=== PATIENT | female | born 1940 | race Caucasian/White ===

== ENCOUNTER → 2018-10-29 | Outpatient (CLI) | payer MEDICARE ==
--- NOTE | 2018-11-01 10:51 | MM ---
Reason for exam: screening (asymptomatic). Last mammogram was performed 1 year and 2 months ago. History: Patient is postmenopausal. Benign excisional biopsy of the left breast, September 03, 1998. Cyst aspiration of the left breast, August 11, 1998. Benign core biopsy of the left breast, October 16, 1997. Benign excisional biopsy of the left breast, 1996. Benign excisional biopsy of the left breast, 1960. Took estrogen for 10 years. Took progesterone for 10 years. Physical Findings: A clinical breast exam by your physician is recommended on an annual basis and results should be correlated with mammographic findings. MG 3D Screening Mammo W/Cad Bilateral CC and MLO view(s) were taken. Prior study comparison: August 28, 2017, bilateral MG 3d screening mammo w/cad. July 26, 2016, bilateral MG 3d screening mammo w/cad. There are scattered fibroglandular densities. No significant changes when compared with prior studies. ASSESSMENT: Negative, BI-RAD 1 RECOMMENDATION: Routine screening mammogram of both breasts in 1 year.
== END | disposition home or self-care (01) ==
LOC: RADMAMWWP 09:52
PROVIDERS: ATTEND Family Medicine
DX: Z12.31 Encounter for screening mammogram for malignant neoplasm of breast (principal)
CPT/HCPCS: 77063; 77067

== ENCOUNTER → 2019-08-27 | Outpatient (CLI) | payer MEDICARE ==
--- NOTE | 2019-08-28 04:20 | MR ---
EXAMINATION TYPE: MR shoulder RT wo con DATE OF EXAM: 08/27/2019 COMPARISON: Outside radiograph 07/09/2019 HISTORY: 79 year-old female right shoulder pain with limited range of motion TECHNIQUE: Multiplanar, multisequence imaging of the right shoulder is performed without contrast. FINDINGS: The exam is motion degraded. The technologist reports speaking to the patient about holding still, sc ans repeated, best possible images Irregular appearance to the intracapsular portion of the long head biceps tendon. Mild fluid along th e bicipital groove likely communicating with the glenohumeral joint. A split tear may extend into the extracapsular portion, refer to axial image 9. Markedly heterogeneous subscapularis tendon with tearing of the superior fibers. Cystic change at the lesser tuberosity. Moderate degenerative joint space narrowing with marginal spurring and capsular hypertrophy at the ac romioclavicular joint. There is a full-thickness tear of the entire supraspinatus and infraspinatus tendon without retractio n by at least 5 cm nearly to the level of the glenoid. Mild subacromial stenosis subdeltoid bursal effusion communicating with a moderate glenohumeral joint effusion. Subchondral cystic change within the inferior glenoid with overlying moderate irregular cartilage los s. Moderate to severe fatty atrophy of both supraspinatus and infraspinatus muscle bellies and mild to m oderate of the subscapularis muscle belly. Generalized mild muscular atrophy is noted. No Hill-Sachs deformity or os acromiale. No suspicious bone marrow replacement. Some patchy red marro w is present and can be seen in the setting of anemia, obesity, smoking, chronic disease. IMPRESSION: 1. Massive rotator cuff tear involving the entire supraspinatus and infraspinatus tendons. Stump retr action nearly to the level of the glenoid by approximately 5 cm. Moderate to severe fatty atrophy of their muscle bellies. 2. Severe subscapularis tendinosis with some tearing of the superior fibers. Mild to moderate subscap ularis muscle atrophy. 3. Irregular appearance to the intracapsular portion of the long head biceps tendon. Partial tear roma pected. A small split tear may extend into the extracapsular portion. 4. Mild overall glenohumeral joint osteoarthrosis with degenerative changes especially along the infe rior glenoid. 5. Moderate AC joint OA.
== END ==
LOC: RADMRIMAIN 13:33
PROVIDERS: ATTEND Orthopaedic Surgery
DX: M75.101 Unspecified rotator cuff tear or rupture of right shoulder, not specified as traumatic (principal); M75.81 Other shoulder lesions, right shoulder; M62.511 Muscle wasting and atrophy, not elsewhere classified, right shoulder; M19.011 Primary osteoarthritis, right shoulder; R93.7 Abnormal findings on diagnostic imaging of other parts of musculoskeletal system

== ENCOUNTER → 2019-09-30 | Day surgery (SDC) | payer MEDICARE ==
[2019-09-23 15:29] VITALS: BMI 33.4
--- NOTE | 2019-09-29 15:32 | HP ---
HISTORY AND PHYSICAL REASON FOR ADMISSION: Surgery scheduled for 09/30/2019 HISTORY OF PRESENT ILLNESS: Babita Diaz is a 79-year-old patient seen with progressive right shoulder pain. We discussed options for treatment. She elected to proceed with right shoulder arthroscopy. Consent was obtained. Medical clearance was provided by Dr. Taveras. PAST MEDICAL HISTORY: Hypertension, gastroesophageal reflux disease, hyperlipidemia. PAST SURGICAL HISTORY: Left ankle surgery. MEDICATIONS: Ambien, hydrochlorothiazide, Protonix, simvastatin, vitamins. ALLERGIES: SINGULAR. SOCIAL HISTORY: She denies tobacco use. PHYSICAL EVALUATION OF THE RIGHT SHOULDER: Flexion 120, abduction 90, external rotation 10 with significant weakness. Tenderness along the anterior lateral acromion rotator cuff insertion site. Impingement sign is positive at 90 degrees. Drop-arm sign is positive. Distal neurovascular exam is intact. RADIOGRAPHS: Right shoulder radiographs revealed a type 2 anterior acromion and cystic changes of the tuberosity. Right shoulder MRI revealed massive rotator cuff tendon tear. IMPRESSION: 1. Right shoulder impingement with rotator cuff tear. 2. Hypertension. 3. Hyperlipidemia. PLAN: Right shoulder arthroscopy with subacromial decompression, arthroscopic rotator cuff repair and debridement. Surgery scheduled for 09/30/2019. MMODL / IJN: [id number] /
[~2019-09-30] MED LIST: ACETAMINOPHEN TAB 500 MG TAB PO ONE; DEXAMETHASONE SOD PHOS (MDV) 100 MG/10 ML VIAL IVP ONE; DEXAMETHASONE SOD PHOSPHATE 4 MG/ML 1 ML VIAL ONE; HYDROcodone/APAP 5-325MG 1 EACH TAB PO ONE; KETOROLAC 30 MG/ML 1 ML VIAL IVP ONE; LACTATED RINGERS 1,000 ML IV ONE; LACTATED RINGERS 1,000 ML IV SCH; LIDOCAINE 1% 20 ML VIAL (10MG/ML) FOR IV START INTRADERMA PRN; LIDOCAINE 1% INJ 10MG/ML (20 ML MDV) ONE; MELOXICAM 7.5 MG TAB PO ONE; METOPROLOL TARTRATE 5 MG/5 ML VIAL IVP ONE; MIDAZOLAM 2 MG/2 ML VIAL IVP ONE; MIDAZOLAM 2 MG/2 ML VIAL ONE; PROPOFOL 10 MG/ML 20 ML VIAL IV ONE; ROPIVACAINE 246.25 MG, EPINEPHrine 0.5 MG, KETOROLAC 30 MG, cloNIDine HCL/PF 80 MCG, WA... MISCELLANE ONE; ROPIVACAINE 5 MG/ML 30 ML VIAL ONE; SUCCINYLCHOLINE CHLORIDE 100 MG/5 ML SYR IV ONE; TRANEXAMIC ACID 1,000 MG in SODIUM CHLORIDE 0.9% 100 ML IVPB ONE; fentaNYL (PF) 50 MCG/ML 2 ML AMP ONE
[2019-09-30] MEDS: ONDANSETRON 4 MG/2 ML VIAL IVP ONE ×2 (12:20→15:09)
--- NOTE | 2019-09-30 15:00 | P.OP ---
Date of Procedure: 09/30/19 Preoperative Diagnosis: Right shoulder impingement with rotator cuff tear Postoperative Diagnosis: 1. Right shoulder massive retracted rotator cuff tear 2. Right shoulder impingement 3. Right shoulder acromioclavicular joint osteoarthritis 4. Right shoulder partial long head biceps tendon tear Procedure(s) Performed: 1. Right shoulder arthroscopic rotator cuff repair 2. Right shoulder arthroscopic subacromial decompression 3. Right shoulder arthroscopic Roosevelt procedure 4. Right shoulder arthroscopic biceps tenotomy Implants: 5Arthrex swivel lock anchors Anesthesia: GETA, regional (Interscalene block) Surgeon: [employer] Technician #1: Onel Montenegro Estimated Blood Loss (ml): 8 Pathology: none sent Condition: stable Disposition: PACU Indications for Procedure: 79-year-old patient seen with progressive right shoulder pain. After treatment options were discussed, he elected to proceed with arthroscopy. Operative Findings: see description of procedure Description of Procedure: Patient underwent an interscalene block by department of anesthesia for postoperative pain management. The patient was then taken to the operative suite. The patient underwent a general anesthetic by the department of anesthesia. The patient was placed into a lateral position and secured. There was appropriate padding of the bony prominence. Right shoulder was then prepped and draped in normal sterile orthopedic fashion. We placed the extremity in 10 pounds of longitudinal traction. A posterior incision was now made for a posterior working portal site. The trocar and cannula were inserted into the glenohumeral joint. Arthroscopy was initiated. Spinal needle was now inserted anteriorly, to ascertain the anterior working portal site. An incision was now made in that area, a trocar was inserted followed by a probe. There was significant partial tearing of the biceps tendon with only a few fibers remaining. There were grade 2 chondromalacia changes of the glenohumeral joint with no osteochondral tears present. There was some superficial fraying of the superior labrum. There was an obvious massive rotator cuff tear I could visualize from the glenohumeral side. I performed an arthroscopic biceps tenotomy. I debrided that superficial labral tear down to stable labral tissue. Utilizing the posterior working portal site, the trocar and cannula were inserted into the subacromial space. Arthroscopy initiated. I made an incision 2 fingerbreadths lateral to the acromion. I introduced my trocar followed by my ArthroCare ablator. I now began ablating thick subacromial bursal tissue, which exposed the undersurface of the anterior acromion. There was diminished subacromial space. There was a very prominent anterior acromion. A motorized bur was introduced and a subacromial decompression was performed. I also excised some osteophytes off the inferior aspect of the distal clavicle. The AC joint was visualized and noted to be fairly arthritic. The motorized bur was introduced in the anterior portal site and a Roosevelt procedure was performed without difficulty, decompressing the AC joint nicely. I turned my attention to the rotator cuff. There was a 3.54 cm rotator cuff tear with about 3 cm of retraction. I debrided the margins getting down to stable tendon tissue. I was able to barely press puller the footprint. I introduced my motorized bur and abraded the footprint area, getting some petechial bleeding. I used 2 converging suture centrally to close the gap of this large rotator cuff tear. I now got better coverage over the footprint. I now made an accessory portal site off the lateral aspect of the acromion. I punched 2 holes medial for medial row fixation with the assistance of Jarred YOUSIF carefully tapping the punch with a mallet as I held the punch and the camera. I now introduced both anchors into the pre-punched holes and Jarred YOUSIF tapped them with the mallet as I held anchors and the camera. Jarred YOUSIF now screwed the anchors in place a while I held the anchor guide and camera. All 8 limbs of suture were now passed through good bites of rotator cuff tendon. I now punched 2 holes for lateral row fixation again I held the punch and camera while Jarred YOUSIF used a mallet to tap in the punch. We now passed sutures through both anchors and individually I introduced the anchors into the pre-punch holes I held the anchor guide in position with one hand holding the camera with the other hand while Jarred YOUSIF tensioned the sutures and screwed in the anchors one at a time. All residual suture limbs were now clipped. I had a fairly substantial dogear along the posterior aspect of the tear. I passed an additional everted mattress sutures through that and reduced one final anchor which compressed that area nicely. We had good compression of the tendon along the entire footprint. I injected 1 mL Renyte intra-articular. Instruments now removed from the portal sites. All portal sites were approximated with nylon suture. Sterile dressings were applied followed by a shoulder immobilizer. Onel YOUSIF assisted in this complex case. The patient was awakened, transferred to a bed, and taken to recovery in stable condition.
[2019-09-30 15:02] VITALS: TEMP 94
[2019-09-30] MEDS: HYDROmorphone 0.5 MG/0.5 ML SYRINGE IVP PRN ×4 (15:10→15:39)
[2019-09-30 15:56] VITALS: RESP 16
[2019-09-30 17:08] VITALS: BP 159/71; PULSE 68
--- NOTE | 2019-10-01 08:04 | P.ANPRN ---
Procedure Note - Anesthesia - Nerve Block Performed Right Interscalene Single Time Out Performed: Yes Date of Procedure: 09/30/19 Procedure Start Time: 12:39 Procedure Stop Time: 12:42 Location of Patient: PreOp Indication: Acute Post-Operative Pain, Requested by Surgeon Sedation Type: Sedate with meaningful contact maintained Preparation: Sterile Prep Position: Supine Needle Types: Pajunk Needle Gauge: 21 Ultrasound used to visualize needle placement: Yes Ultrasound used to observe medication spread: Yes Blood Aspirated: No Pain Paresthesia on Injection Noted: No Resistance on Injection: Normal Image Stored and Saved: Yes Events: Uneventful and Well Tolerated (ropi .5% 20cc plus dexamethasone 4mg)
== END | disposition home or self-care (01) ==
LOC: OR 11:28
PROVIDERS: ATTEND Orthopaedic Surgery
DX: M75.101 Unspecified rotator cuff tear or rupture of right shoulder, not specified as traumatic (principal); M75.41 Impingement syndrome of right shoulder; M19.011 Primary osteoarthritis, right shoulder; S46.111A Strain of muscle, fascia and tendon of long head of biceps, right arm, initial encounter; M94.211 Chondromalacia, right shoulder; E03.9 Hypothyroidism, unspecified; E78.2 Mixed hyperlipidemia; K21.9 Gastro-esophageal reflux disease without esophagitis; I12.9 Hypertensive chronic kidney disease with stage 1 through stage 4 chronic kidney disease, or unspecified chronic kidney disease; N18.3 Chronic kidney disease, stage 3 (moderate); F43.9 Reaction to severe stress, unspecified; R21 Rash and other nonspecific skin eruption; L53.9 Erythematous condition, unspecified; M47.899 Other spondylosis, site unspecified; Z79.899 Other long term (current) drug therapy; Z79.82 Long term (current) use of aspirin; Z88.7 Allergy status to serum and vaccine; Z88.8 Allergy status to other drugs, medicaments and biological substances; Z91.81 History of falling; Z98.890 Other specified postprocedural states; Z96.662 Presence of left artificial ankle joint; X58.XXXA Exposure to other specified factors, initial encounter
CPT/HCPCS: 29827; 29826; 29824; 64415; 76942; C1713 ×3; Q4212; J2250; J1100 ×2; J0690; J2405; J2001; J3010; J1885; J2795; J0330; J2704; J1170

== ENCOUNTER → 2020-01-07 | Outpatient (CLI) | payer MEDICARE ==
--- NOTE | 2020-01-07 13:49 | MM ---
Reason for exam: screening (asymptomatic). Last mammogram was performed 1 year and 2 months ago. History: Patient is postmenopausal. Benign excisional biopsy of the left breast, September 03, 1998. Cyst aspiration of the left breast, August 11, 1998. Benign core biopsy of the left breast, October 16, 1997. Benign excisional biopsy of the left breast, 1996. Benign excisional biopsy of the left breast, 1960. Took estrogen for 10 years. Took progesterone for 10 years. Physical Findings: A clinical breast exam by your physician is recommended on an annual basis and results should be correlated with mammographic findings. MG 3D Screening Mammo W/Cad Bilateral CC and MLO view(s) were taken. Prior study comparison: October 29, 2018, bilateral MG 3d screening mammo w/cad. August 28, 2017, bilateral MG 3d screening mammo w/cad. There are scattered fibroglandular densities. There is chronic nodularity in the left breast. There is no discrete abnormality. ASSESSMENT: Negative, BI-RAD 1 RECOMMENDATION: Routine screening mammogram of both breasts in 1 year.
== END | disposition home or self-care (01) ==
LOC: RADMAMWWP 13:28
PROVIDERS: ATTEND Family Medicine
DX: Z12.31 Encounter for screening mammogram for malignant neoplasm of breast (principal)
CPT/HCPCS: 77063; 77067

== ENCOUNTER → 2020-05-18 | Outpatient (CLI) | payer MEDICARE ==
--- NOTE | 2020-05-18 16:06 | BD ---
EXAMINATION TYPE: Axial Bone Density DATE OF EXAM: 05/18/2020 COMPARISON: 01/24/2014 CLINICAL HISTORY: Disorder of bone Height: 60.5 IN Weight: 181 LBS FRAX RISK QUESTIONS: Family History (Parent hip fracture): YES MOTHER RISK FACTORS HISTORY OF: Family History of Osteoporosis: YES Active: YES Diet low in dairy products/other sources of calcium: YES Postmenopausal woman: AGE 52 Take estrogen and/or progesterone medications: NOT NOW 5 YEARS Lost more than 2 inches in height since high school: YES 10/31" MEDICATIONS: Additional Medications: CALCIUM, VIT D, BLOOD PRESSURE, ARTHRITIS MEDS EXAM MEASUREMENTS: Bone mineral densitometry was performed using the [employer] System. Bone mineral density as measured about the Lumbar spine is: ----- L1-L4(G/cm2): 1.270 T Score Values are as follows: ----- L2: 0.6 ----- L3: 2.1 ----- L4: 0.9 ----- L1-L4: 0.7 Bone mineral density has: Increased 0.1% since study of: 01/24/2014 Bone mineral density about the R hip (g/cm2): 0.898 Bone mineral density about the L hip (g/cm2): 0.856 T Score values are as follows: -----R Neck: -1.0 -----L Neck: -1.3 -----R Total: 0.2 -----L Total: -0.5 Bone mineral density has: Increased 0.3% since study of: 01/24/2014 IMPRESSION: Osteopenia (T Score between -2.5 and -1). There is slightly increased risk of fracture and the patient may be considered for treatment. Re-Screen 2-5 years. NOTE: T-SCORE=SD OF THE YOUNG ADULT MEAN.
== END | disposition home or self-care (01) ==
LOC: RADBDWWP 12:40
PROVIDERS: ATTEND Family Medicine
DX: M85.89 Other specified disorders of bone density and structure, multiple sites (principal)
CPT/HCPCS: 77080

== ENCOUNTER → 2020-09-30 | Outpatient (CLI) | payer MEDICARE ==
--- NOTE | 2020-09-30 12:57 | XR ---
EXAMINATION TYPE: XR lumbosacral spine min 4V DATE OF EXAM: 09/30/2020 Comparison: None Clinical History: 80-year-old female [id number], [id number], [id number] LBP, ADELINE KNEE PAIN Findings: Moderate to severe degenerative disc disease particularly at L2-L3 and L5-S1 with disc space narrowin g, endplate spondylosis, and vacuum. Hypertrophic facet arthropathy is present throughout the lumbar spine. Trace grade 1 retrolisthesis at L1-L2. Remaining alignment is maintained and vertebral body he ights are preserved. 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 Degenerated levoconvex cur vature of the lumbar spine. Impression: 1. Degenerated levoconvex scoliosis of the lumbar spine. 2. Moderate to severe degenerative disc disease L2-L3 and L5-S1. 3. Advanced hypertrophic facet arthropathy throughout with a trace grade 1 retrolisthesis at L1-L2. 4. Baastrup's disease.
--- NOTE | 2020-09-30 13:00 | XR ---
EXAMINATION TYPE: XR knee complete bilateral DATE OF EXAM: 09/30/2020 COMPARISON: NONE HISTORY: 80-year-old female bilateral knee pain. TECHNIQUE: 3 views each side FINDINGS: Extensor mechanisms appear intact bilaterally. Minimal degenerative spurring in the bilateral patell ofemoral compartments. Trace knee joint effusion on the left. Some meniscal chondrocalcinosis noted in the left medial david rtment. Some soft tissue calcification noted along the region proximal MCL on the left. Medial and lateral and meniscal chondrocalcinosis on the right. Moderate degenerative spurring and fausto int space narrowing at the medial compartment with extruded appearance to the body of the medial meni scus. No acute fracture, subluxation, dislocation. IMPRESSION: 1. Moderate medial compartmental osteoarthrosis on the right. 2. Meniscal chondrocalcinosis bilaterally with extruded appearance to the right medial meniscus sugge sting underlying meniscal tear. 3. Trace knee joint effusion on the left.
== END | disposition home or self-care (01) ==
LOC: RADXRYALE 11:17
PROVIDERS: ATTEND Physician Assistant Medical
DX: M41.86 Other forms of scoliosis, lumbar region (principal); M51.36 Other intervertebral disc degeneration, lumbar region; M51.37 Other intervertebral disc degeneration, lumbosacral region; M47.816 Spondylosis without myelopathy or radiculopathy, lumbar region; M48.27 Kissing spine, lumbosacral region; M17.11 Unilateral primary osteoarthritis, right knee; M11.262 Other chondrocalcinosis, left knee; M11.261 Other chondrocalcinosis, right knee
CPT/HCPCS: 72110

== ENCOUNTER → 2021-06-02 | Outpatient (CLI) | payer MEDICARE ==
--- NOTE | 2021-06-02 11:22 | MR ---
EXAMINATION TYPE: MR lumbar spine wo con DATE OF EXAM: 06/02/2021 COMPARISON: NONE HISTORY: Middle and right sided back pain into right buttock x 2 years TECHNIQUE: T1 and T2 axial and sagittal images of the lumbar spine are submitted. FINDINGS: There is no abnormal signal seen within the visualized spinal cord or paraspinal soft tissu es. There is a scoliotic curvature of the spine with severe degenerative disc disease levels L2-3, L3 -4 and L4-5. Moderate to severe changes at L5-S1. Spinal muscular atrophy noted. At T12-L1 there is r ight paracentral disc bulging but no canal stenosis or foraminal encroachment and facet arthropathy. Multiple vertebral body hemangiomas noted At L1-2 there is facet arthropathy. Greater on the right with lateral impression upon the thecal sac. Neural foramina are patent. No canal stenosis or disc herniation. At L2-3 there is severe degenerative disc disease with advanced facet arthropathy and ligamentum flav um hypertrophy. There is a area of low signal adjacent to the right SI joint which may represent face t arthropathy greater on the right resulting in posterolateral impressions upon the thecal sac. Neura l foramina are patent. There is broad-based disc bulging result in mild central stenosis. At L3-4 there is severe degenerative disc disease with facet arthropathy and diffuse disc bulging res ulting in mild to moderate canal stenosis and bilateral foraminal encroachment. At L4-5 there is advanced facet arthropathy with ligamentum flavum hypertrophy. Mild bilateral forami nal encroachment. Mild central broad-based disc bulging with no canal stenosis. At L5-S1 there is dense facet arthropathy and degenerative disc disease. No foraminal encroachment or canal stenosis. No disc herniation. IMPRESSION: 1. Severe multilevel degenerative disc disease and facet arthropathy. Mild to moderate canal stenosis and bilateral foraminal encroachment and L3-L4. Mild canal stenosis L2-L3. 2. Multilevel disc bulging and foraminal encroachment as discussed above.
== END | disposition home or self-care (01) ==
LOC: RADMRIMAIN 10:36
PROVIDERS: ATTEND Family Medicine
DX: M48.061 Spinal stenosis, lumbar region without neurogenic claudication (principal); M51.17 Intervertebral disc disorders with radiculopathy, lumbosacral region; M47.27 Other spondylosis with radiculopathy, lumbosacral region; M99.73 Connective tissue and disc stenosis of intervertebral foramina of lumbar region
CPT/HCPCS: 72148

== ENCOUNTER → 2021-08-19 | Outpatient (CLI) | payer MEDICARE ==
[2021-08-19 13:29] VITALS: BP 139/72; PULSE 72; RESP 18; TEMP 97.8
--- NOTE | 2021-08-19 13:57 | P.PAINCN ---
History of Present Illness - Reason for Consult Consult date: 08/19/21 - History of Present Illness This is a 51 years old female with a chronic history of severe low back pain started 2 years ago, denies any initiating event and she reported that the intensity of the pain increased over time, it's constant severe localized in the low back area with radiation to the right buttock and towards the right hip, she denies any numbness or tingling sensation in the lower extremity and she denies any motor or sensory deficit, she reported that the intensity of the pain interfering with the quality of life and preventing her from doing activities of daily livings, intensity of the pain 6/10 and increases with any activity to 8- 10 over 10, the patient already done physical therapy without any significant benefit, and she is using voluntary by mouth without any benefit, he denies any motor or sensory deficit she denies any fever or night sweats Past Medical History Past Medical History: GERD/Reflux, Hyperlipidemia, Hypertension, Osteoarthritis (OA) Additional Past Medical History / Comment(s): lower back pain History of Any Multi-Drug Resistant Organisms: None Reported Past Surgical History: Joint Replacement, Orthopedic Surgery, Tubal Ligation Additional Past Surgical History / Comment(s): pinning left ankle, left ankle replacement, polyp removed from vocal cords, Past Anesthesia/Blood Transfusion Reactions: No Reported Reaction Smoking Status: Never smoker - Past Family History Father Family Medical History: Cancer Mother Additional Family Medical History / Comment(s): aneurysm Medications and Allergies Home Medications Medication Instructions Recorded Confirmed Type Ascorbic Acid [Vitamin C] 500 mg PO DAILY 09/23/19 08/19/21 History Aspirin [Adult Low Dose Aspirin EC] 81 mg PO DAILY 09/23/19 08/19/21 History Calcium Carbonate [Calcium] 600 mg PO BID 09/23/19 08/19/21 History Cetirizine HCl 10 mg PO DAILY 09/23/19 08/19/21 History Cholecalciferol (Vitamin D3) 1,000 unit PO DAILY 09/23/19 08/19/21 History [Vitamin D3] Cyanocobalamin [Vitamin B-12] 500 mcg PO DAILY 09/23/19 08/19/21 History Diclofenac Sodium [Voltaren] 75 mg PO DAILY 09/23/19 08/19/21 History Glucosamine/Chondr Ibrahim A Sod [Osteo 1 each PO BID 09/23/19 08/19/21 History Bi-Flex Caplet] Multivitamins, Thera [Multivitamin 1 tab PO DAILY 09/23/19 08/19/21 History (formulary)] Pantoprazole [Protonix] 40 mg PO DAILY 09/23/19 08/19/21 History Simvastatin [Zocor] 40 mg PO HS 09/23/19 08/19/21 History hydroCHLOROthiazide [Hydrodiuril] 25 mg PO DAILY 09/23/19 08/19/21 History L.acidoph,Paracasei, B.lactis 1 each PO DAILY 08/06/21 08/19/21 History [Probiotic] Losartan Potassium 100 mg PO DAILY 08/06/21 08/19/21 History Allergies Allergy/AdvReac Type Severity Reaction Status Date / Time [facility] Allergy Rash/Hives Verified 08/19/21 13:05 pneumococcal vaccine Allergy arm Verified 08/19/21 13:05 swelled up Physical Exam Vitals: Vital Signs Temp Pulse Resp BP 08/19/21 13:16 97.8 F 72 18 139/72 Physical Examinations : -Constitutiona : Cooperative , not in acute distress . -HEENT : nech : supple , no Lymphadenopathy , normal thy roid size . : eyes : no ptosis , no icterus, no photophobia . - neurologic : Cranial nerve II to XII intact , no focal neurological deffecit . -psychatric : alert , oriented X 3 , appropriate affect , intact judgment and insight . -Lymphatic : no Lymphadenopathy . - musculoskeltal : . Lumber spine moter stegnth lower extremities ,thigh and legs 5/5 Right side , 5/5 Left side deep tendon reflexes : normal Knee Jerk , normal ankle Jerk lumber facet Loading Test =positive Right , positive Left Range of motion of the lumbar spine Flexion 30 degrees, extension 10 degrees strait leg raising test = negative bilaterally Fabere test= negative bilaterally. Results Comments: MRI of the lumbar spine= multilevel lumbar degenerative disc disease multilevel lumbar spondylosis with lumbar facet arthropathy and multilevel bilateral foraminal stenosis Assessment and Plan Plan: Assessment and plan=1-lumbar spondylosis with lumbar facet arthropathy without myelopathy. 2-lumbar degenerative disc disease. 3-lumbar foraminal stenosis. Patient failed conservative treatment including medication management and physical therapy and chiropractics, she to be good candidate for diagnostic medial branch block lumbar area at L4 5 and L5-S1, if she had good results then we'll proceed with RFA Time with Patient: Greater than 30 PQRS Measure Charge Sheet Measure #130: Documentation of Current Meds in Medical Chart: Patient's medications documented in chart Measure #226: Tobacco Use: Screen & Cessation Intervention: Pt not a tobacco user Measure #111: Pneumonia Vaccination: Pneumococcal vaccine NOT administered or previously given Measure #47: Advance Care Plan: Advance care planning discussed & documented, pt chose/unable to give Measure #412: Opioid Treatment Agreement: No documentation of signed opioid treatment agreement Measure #408: Opioid Therapy Follow-up Evaluation: Patient had NO f/u eval minimum every 3 months during opioid therapy Measure #317: Preventitive Care & Scrn High Bld Press & F/U: Normal blood pressure, f/u not required Measure #128: Body Mass Index (BMI) Screening & Follow-up: BMI documented ABOVE normal parameters - f/u documented Measure #131: Pain Assessment & Follow-up: Pain positive & plan documented, Follow-up scheduled Measure #431: Unhealthy Alcohol Use Preventative Care & Scrn: Patient not identified as an unhealthy alcohol user Mode of Arrival: Ambulatory PQRS Narrative: Smoking Status Never smoker Blood Pressure 139/72 Pain Intensity [Lower Back] 8 Scale Used Numeric (1 - 10) Home Medications: Ambulatory Orders Ascorbic Acid [Vitamin C] 500 mg PO DAILY 09/23/19 Aspirin [Adult Low Dose Aspirin EC] 81 mg PO DAILY 09/23/19 Calcium Carbonate [Calcium] 600 mg PO BID 09/23/19 Cetirizine HCl 10 mg PO DAILY 09/23/19 Cholecalciferol (Vitamin D3) [Vitamin D3] 1,000 unit PO DAILY 09/23/19 Cyanocobalamin [Vitamin B-12] 500 mcg PO DAILY 09/23/19 Diclofenac Sodium [Voltaren] 75 mg PO DAILY 09/23/19 Glucosamine/Chondr Ibrahim A Sod [Osteo Bi-Flex Caplet] 1 each PO BID 09/23/19 Multivitamins, Thera [Multivitamin (formulary)] 1 tab PO DAILY 09/23/19 Pantoprazole [Protonix] 40 mg PO DAILY 09/23/19 Simvastatin [Zocor] 40 mg PO HS 09/23/19 hydroCHLOROthiazide [Hydrodiuril] 25 mg PO DAILY 09/23/19 L.acidoph,Paracasei, B.lactis [Probiotic] 1 each PO DAILY 08/06/21 Losartan Potassium 100 mg PO DAILY 08/06/21
== END ==
LOC: PNWHC3 12:57
PROVIDERS: ATTEND Specialist
DX: M47.816 Spondylosis without myelopathy or radiculopathy, lumbar region (principal); M51.36 Other intervertebral disc degeneration, lumbar region; M48.061 Spinal stenosis, lumbar region without neurogenic claudication; E78.5 Hyperlipidemia, unspecified; I10 Essential (primary) hypertension; M19.90 Unspecified osteoarthritis, unspecified site; K21.9 Gastro-esophageal reflux disease without esophagitis; Z79.899 Other long term (current) drug therapy; Z88.7 Allergy status to serum and vaccine; Z88.8 Allergy status to other drugs, medicaments and biological substances
CPT/HCPCS: 99211

== ENCOUNTER 2021-08-31 15:47 | Emergency (ER) | payer MEDICARE ==
[2021-08-31 17:21] VITALS: RESP 18
--- NOTE | 2021-08-31 19:20 | ED ---
General Adult HPI - General Chief complaint: Upper Respiratory Infection Stated complaint: covid+, worsening symptoms Time Seen by Provider: 08/31/21 17:05 Source: patient, RN notes reviewed, old records reviewed Mode of arrival: ambulatory Limitations: no limitations - History of Present Illness Initial comments: This is an 81-year-old female who was exposed to cold about a week or so ago. Patient states she started having symptoms on Monday 2 days ago. Patient states she was tested today and was positive. Patient states she has no difficulty br eathing shortness of breath. Patient states she does have some achiness and congestion. Patient states she does have a cough but again no shortness of breath per patient denies any chest pain patient denies any loss of taste or smell patient denies any diarrhea. - Related Data Home Medications Medication Instructions Recorded Confirmed Ascorbic Acid [Vitamin C] 500 mg PO DAILY 09/23/19 08/31/21 Calcium Carbonate [Calcium] 600 mg PO DAILY 09/23/19 08/31/21 Cyanocobalamin [Vitamin B-12] 500 mcg PO DAILY 09/23/19 08/31/21 Diclofenac Sodium [Voltaren] 75 mg PO DAILY 09/23/19 08/31/21 Glucosamine/Chondr Ibrahim A Sod [Osteo 1 tab PO BID 09/23/19 08/31/21 Bi-Flex Caplet] Pantoprazole [Protonix] 40 mg PO DAILY 09/23/19 08/31/21 Simvastatin [Zocor] 40 mg PO HS 09/23/19 08/31/21 hydroCHLOROthiazide [Hydrodiuril] 25 mg PO DAILY 09/23/19 08/31/21 Losartan Potassium 100 mg PO DAILY 08/06/21 08/31/21 Cholecalciferol (Vitamin D3) 125 mcg PO DAILY 08/31/21 08/31/21 [Vitamin D3 (125 MCG = 5,000 IU)] Previous Rx's Medication Instructions Recorded Azithromycin [Zithromax Tri-Antonio] 500 mg PO DAILY #3 tab 08/31/21 Allergies Allergy/AdvReac Type Severity Reaction Status Date / Time montelukast [From [facility]] Allergy Rash/Hives Verified 08/31/21 19:36 pneumococcal vaccine Allergy arm Verified 08/31/21 19:36 swelled up & Rash Review of Systems ROS Statement: Those systems with pertinent positive or pertinent negative responses have been documented in the HPI. ROS Other: All systems not noted in ROS Statement are negative. Past Medical History Past Medical History: GERD/Reflux, Hyperlipidemia, Hypertension, Osteoarthritis (OA) Additional Past Medical History / Comment(s): lower back pain History of Any Multi-Drug Resistant Organisms: None Reported Past Surgical History: Joint Replacement, Orthopedic Surgery, Tubal Ligation Additional Past Surgical History / Comment(s): pinning left ankle, left ankle replacement, polyp removed from vocal cords, Past Anesthesia/Blood Transfusion Reactions: No Reported Reaction Past Psychological History: No Psychological Hx Reported Smoking Status: Never smoker Past Alcohol Use History: None Reported Past Drug Use History: None Reported - Past Family History Father Family Medical History: Cancer Mother Additional Family Medical History / Comment(s): aneurysm General Exam - General Exam Comments Initial Comments: GENERAL: Patient is well-developed and well-nourished. Patient is nontoxic and well- hydrated and is in no acute distress. ENT: Neck is soft and supple. No significant lymphadenopathy is noted. Oropharynx is clear. Moist mucous membranes. Neck has full range of motion without eliciting any pain. EYES: The sclera were anicteric and conjunctiva were pink and moist. Extraocular movements were intact and pupils were equal round and reactive to light. Eyelids were unremarkable. PULMONARY: Unlabored respirations. Good breath sounds bilaterally. No audible rales rhonchi or wheezing was noted. CARDIOVASCULAR: There is a regular rate and rhythm without any murmurs gallops or rubs. ABDOMEN: Soft and nontender with normal bowel sounds. SKIN: Skin is clear with no lesions or rashes and otherwise unremarkable. NEUROLOGIC: Patient is alert and oriented x3. Cranial nerves II through XII are grossly intact. Motor and sensory are also intact. Normal speech, volume and content. Symmetrical smile. MUSCULOSKELETAL: Normal extremities with adequate strength and full range of motion. No lower extremity swelling or edema. No calf tenderness. LYMPHATICS: No significant lymphadenopathy is noted PSYCHIATRIC: Normal psychiatric evaluation. Limitations: no limitations Course Vital Signs 08/31/21 08/31/21 17:04 19:47 Temperature 97.3 F L Pulse Rate 64 62 Respiratory 18 18 Rate Blood Pressure 130/70 O2 Sat by Pulse 96 97 Oximetry Medical Decision Making - Medical Decision Making Patient received monoclonal antibodies Patient's chest x-ray shows a little infiltrate right greater than left. Because the patient already had the vaccine and is given monoclonal antibodies and going to cover her with some Zithromax. Having no difficulty breathing at this time. Disposition Clinical Impression: Pneumonia due to COVID-19 virus Disposition: HOME SELF-CARE Condition: Good Instructions (If sedation given, give patient instructions): Coronavirus Disease 2019 (COVID-19) Prescriptions: Azithromycin [Zithromax Tri-Antonio] 500 mg PO DAILY #3 tab Is patient prescribed a controlled substance at d/c from ED?: No Referrals: Jovanni Taveras DO [Primary Care Provider] - 1-2 days Time of Disposition: 20:49
--- NOTE | 2021-08-31 19:53 | XR ---
EXAMINATION TYPE: XR chest 2V DATE OF EXAM: 08/31/2021 COMPARISON: 10/14/2016 INDICATION: Difficulty breathing TECHNIQUE: Frontal and lateral views of the chest are obtained. FINDINGS: The heart size is normal. The pulmonary vasculature is normal. Mild infiltrates at the lung bases. There is mild increased lung markings diffusely. Findings are non specific but can be compatible with atypical pneumonia.. IMPRESSION: 1. Scattered mild infiltrates greater at the lung bases can be compatible with atypical pneumonia.
[2021-08-31] MEDS ORDERED: CASIRIVIMAB/IMDEVIMAB (EUA) 1,200 MG in SODIUM CHLORIDE 0.9% 100 ML IVPB ONE (20:00)
[2021-08-31] MEDS ORDERED: SODIUM CHLORIDE 0.9% 50 ML IVPB ONE (20:00)
[2021-08-31] MEDS ORDERED: AZITHROMYCIN 500 MG TAB PO STA (20:14)
[2021-08-31 21:17] VITALS: BP 146/66; PULSE 64; TEMP 97.2
== END 2021-08-31 21:19 | disposition home or self-care (01) ==
LOC: EC 15:47
DX: U07.1 COVID-19 (principal); J12.82 Pneumonia due to coronavirus disease 2019; I10 Essential (primary) hypertension; E78.5 Hyperlipidemia, unspecified; K21.9 Gastro-esophageal reflux disease without esophagitis; M19.90 Unspecified osteoarthritis, unspecified site; Z79.1 Long term (current) use of non-steroidal anti-inflammatories (NSAID); Z79.899 Other long term (current) drug therapy
CPT/HCPCS: 71046; 99283; 96365; Q0243

== ENCOUNTER 2021-09-28 10:02 | Day surgery (SDC) | payer MEDICARE ==
[2021-09-27 08:30] VITALS: BMI 33.4
[2021-09-28 10:30] VITALS: RESP 16; TEMP 97.6
[2021-09-28] MEDS ORDERED: LACTATED RINGERS 1,000 ML IV ONE (10:33)
[2021-09-28] MEDS ORDERED: ROPIVACAINE 5MG/ML 20ML VIAL ONE (10:53)
[2021-09-28] MEDS ORDERED: methylPREDNISolone ACETATE 40 MG/ML 1 ML VIAL ONE (10:53)
[2021-09-28] MEDS ORDERED: fentaNYL (PF) 50 MCG/ML 2 ML AMP ONE (10:53)
[2021-09-28] MEDS ORDERED: MIDAZOLAM 2 MG/2 ML VIAL ONE (10:53)
--- NOTE | 2021-09-28 11:16 | P.PCN ---
Date of Procedure: 09/28/21 Procedure(s) Performed: PREOPERATIVE DIAGNOSIS : 1- Lumbar spondylosis with Facet Arthropathy without myelopathy . 2- Lumber degenerative disc disease POSTOPERATIVE DIAGNOSIS: 1- Lumbar spondylosis with Facet Arthropathy without myelopathy . 2- Lumber degenerative disc disease PROCEDURE: Diagnostic bilateral L3 , L4 , and L5 medial branch block under fluoroscopy guidance(fluoroscopy images available in the radiology Department ) ( To target the facet joint between bilateral L4-5 , and L5-S1 )#1st ANESTHESIA:, moderate sedation with intravenous Versed 1 mg and Fentanyl 50 mcg. EBL: Minimal COMPLICATION: None PROCEDURE INDICATION: Chronic low back pain secondary to Facet arthropathy unresponsive to conservative treatment. PROCEDURE DESCRIPTION: the patient was seen and identified in the preop holding area , risks and benefits and possible complications of the procedure and alternative were discussed with the patient, and the patient agreed to proceed with the procedure and signed the consent and vital signs monitored during the procedure and fluoroscopy was used to maximize the benefit and accuracy of the needle placement, and sedation was given to decrease patient anxiety, patient was taken to the procedure room and placed in prone position vital signs monitored in the back prepped with chlorhexidine X3 then under strict sterile technique using a right oblique fluoroscopy ,the junction of the transverse process and the superior articulating process of the right L3 , L4 , and L5 vertebra which corresponding to the fluoroscopy image of the eye of the Jose dog on the block side for the medial branches and subsequently , after local infiltration of skin and subcu tissuies with Ropivacaine 0.5 % , one mL at each level ,then 22-gauge 5 inches long Quincke-type needles , 3 needle was used , each one of them placed at the junction of the base of the transverse process and the superior articular process at the appropriate level, and the needle was advanced until the periosteum contacted, needle placement confirmed with AP oblique and lateral view and after appropriate needle placement confirmed, and after negative aspiration for heme and CSF and there was no paresthesia 1-1/2 mL of Ropivacaine 0.5% mixed with 20 mg Depo-Medrol , then half mL injected at each level after negative aspiration the needle subsequently removed and the same procedure repeated for the left side at left side at L3 , L4 and L5 levels. At the end of the procedure and the needles removed and a bandage applied after the skin was cleaned the cleaning solution patient taken to recovery room in stable condition and monitors in the recovery room for 20-30 minutes and discharged home in stable condition after discharge criteria met and patient will follow up with the pain clinic in 2-4 weeks
[2021-09-28] MEDS ORDERED: IV FLUID CONTINUATION 500 ML IV ONE (11:20)
[2021-09-28] MEDS ORDERED: LACTATED RINGERS 1,000 ML IV SCH (11:26)
--- NOTE | 2021-09-28 11:29 | FL ---
EXAMINATION TYPE: FL guided pain mgmt statistic DATE OF EXAM: 09/28/2021 CLINICAL HISTORY: Low back pain. TECHNIQUE: Fluoroscopy. COMPARISON: None. FINDINGS: Fluoroscopic guidance was provided during pain relief procedure performed by Dr. Hilario . A total of 11 seconds of fluoroscopic time was utilized during the procedure and 4 spot images are acquired. Images acquired shows needle localization at several levels in the lower lumbar spine. IMPRESSION: As Above.
[2021-09-28 11:58] VITALS: BP 136/79; PULSE 67
== END 2021-09-28 12:02 | disposition home or self-care (01) ==
LOC: ORPAIN 10:02
PROVIDERS: ATTEND Specialist
DX: G89.29 Other chronic pain (principal); M47.816 Spondylosis without myelopathy or radiculopathy, lumbar region; Z88.7 Allergy status to serum and vaccine; Z88.8 Allergy status to other drugs, medicaments and biological substances; Z78.0 Asymptomatic menopausal state
CPT/HCPCS: 64493; 64494; J2250; J1030; J3010; J2795; 99152

== ENCOUNTER → 2021-10-14 | Outpatient (CLI) | payer MEDICARE ==
--- NOTE | 2021-10-14 10:34 | XR ---
EXAMINATION TYPE: XR chest 2V DATE OF EXAM: 10/14/2021 COMPARISON: Chest x-ray August 31, 2021 HISTORY: Shortness of breath TECHNIQUE: Frontal and lateral views of the chest are obtained. FINDINGS: There is chronic emphysematous change without suspicious focal air space opacity, pleural effusion, or pneumothorax seen. The cardiac silhouette size is stable and mildly enlarged. Underlyin g scoliotic curvature is present. IMPRESSION: Chronic changes and cardiomegaly without acute pulmonary process.
== END | disposition home or self-care (01) ==
LOC: RADXRYALE 10:17
PROVIDERS: ATTEND Physician Assistant Medical
DX: J43.9 Emphysema, unspecified (principal); Z86.16 Personal history of COVID-19
CPT/HCPCS: 71046

== ENCOUNTER 2021-12-17 10:32 | Day surgery (SDC) | payer MEDICARE ==
[2021-12-15 15:18] VITALS: BMI 33.4
[2021-12-17 11:12] VITALS: TEMP 97.1
[2021-12-17] MEDS ORDERED: LACTATED RINGERS 1,000 ML IV ONE (11:18)
[2021-12-17] MEDS ORDERED: ROPIVACAINE 5MG/ML 20ML VIAL ONE (11:53)
[2021-12-17] MEDS ORDERED: methylPREDNISolone ACETATE 40 MG/ML 1 ML VIAL ONE (11:53)
[2021-12-17] MEDS ORDERED: fentaNYL (PF) 50 MCG/ML 2 ML AMP ONE (11:54)
[2021-12-17] MEDS ORDERED: MIDAZOLAM 2 MG/2 ML VIAL ONE (11:54)
--- NOTE | 2021-12-17 12:15 | P.PCN ---
Date of Procedure: 12/17/21 Procedure(s) Performed: PREOPERATIVE DIAGNOSIS : 1- Lumbar spondylosis with Facet Arthropathy without myelopathy . 2- Lumber degenerative disc disease POSTOPERATIVE DIAGNOSIS: 1- Lumbar spondylosis with Facet Arthropathy without myelopathy . 2- Lumber degenerative disc disease PROCEDURE: Diagnostic bilateral L3 , L4 , and L5 medial branch block under fluoroscopy guidance(fluoroscopy images available in the radiology Department ) ( To target the facet joint between bilateral L4-5 , and L5-S1 )# 2nd ANESTHESIA:, Monitored anesthesia care as per anesthesia department. EBL: Minimal COMPLICATION: None PROCEDURE INDICATION: Chronic low back pain secondary to Facet arthropathy unresponsive to conservative treatment. PROCEDURE DESCRIPTION: the patient was seen and identified in the preop holding area , risks and benefits and possible complications of the procedure and alternative were discussed with the patient, and the patient agreed to proceed with the procedure and signed the consent and vital signs monitored during the procedure and fluoroscopy was used to maximize the benefit and accuracy of the needle placement, and sedation was given to decrease patient anxiety, patient was taken to the procedure room and placed in prone position vital signs monitored in the back prepped with chlorhexidine X3 then under strict sterile technique using a right oblique fluoroscopy ,the junction of the transverse process and the superior articulating process of the right L3 , L4 , and L5 vertebra which corresponding to the fluoroscopy image of the eye of the Jose dog on the block side for the medial branches and subsequently , after local infiltration of skin and subcu tissuies with Ropivacaine 0.5 % , one mL at each level ,then 22-gauge 5 inches long Quincke-type needles , 3 needle was used , each one of them placed at the junction of the base of the transverse process and the superior articular process at the appropriate level, and the needle was advanced until the periosteum contacted, needle placement confirmed with AP oblique and lateral view and after appropriate needle placement confirmed, and after negative aspiration for heme and CSF and there was no paresthesia 1-1/2 mL of Ropivacaine 0.5% mixed with 20 mg Depo-Medrol , then half mL injected at each level after negative aspiration the needle subsequently removed and the same procedure repeated for the left side at left side at L3 , L4 and L5 levels. At the end of the procedure and the needles removed and a bandage applied after the skin was cleaned the cleaning solution patient taken to recovery room in stable condition and monitors in the recovery room for 20-30 minutes and discharged home in stable condition after discharge criteria met and patient will follow up with the pain clinic in 2-4 weeks
[2021-12-17] MEDS ORDERED: LACTATED RINGERS 1,000 ML IV SCH (12:19)
[2021-12-17] MEDS ORDERED: IV FLUID CONTINUATION 1,000 ML IV ONE (12:20)
--- NOTE | 2021-12-17 12:24 | FL ---
EXAMINATION TYPE: FL guided pain mgmt statistic DATE OF EXAM: 12/17/2021 HISTORY: Fluoroscopy time 15 seconds of fluoroscopy provided. IMPRESSION: 1. Fluoroscopy time.
[2021-12-17 12:44] VITALS: BP 137/74; PULSE 78; RESP 18
== END 2021-12-17 12:54 | disposition home or self-care (01) ==
LOC: ORPAIN 10:32
PROVIDERS: ATTEND Specialist
DX: M51.36 Other intervertebral disc degeneration, lumbar region (principal); G89.29 Other chronic pain; M47.816 Spondylosis without myelopathy or radiculopathy, lumbar region; I10 Essential (primary) hypertension; E78.5 Hyperlipidemia, unspecified; K21.9 Gastro-esophageal reflux disease without esophagitis; Z79.899 Other long term (current) drug therapy; Z98.51 Tubal ligation status; Z98.890 Other specified postprocedural states; Z88.8 Allergy status to other drugs, medicaments and biological substances; Z88.7 Allergy status to serum and vaccine
CPT/HCPCS: 64493; 64494; J2250; J1030; J3010; J2795

== ENCOUNTER → 2022-01-03 | Outpatient (CLI) | payer MEDICARE ==
[2022-01-03 11:51] VITALS: BP 140/64; PULSE 62; RESP 18; TEMP 98.4
--- NOTE | 2022-01-03 12:13 | P.PN ---
Subjective Progress Note Date: 01/03/22 Principal diagnosis: A 81 yr old female with a history of severe and chronic low back pain secondary to lumbar degenerative disc diseases and lumbar spondylosis with facet arthropathy presents today for evaluation for facet blocks of the medial branches L4-L5, L5-S1 #2. Patient states she expresses 80% pain relief for one day status post procedure. Pain level is currently at 5 out of 10 in intensity, dull, achy in the lower aspects of her lumbar spine with radiation to her hips, right greater than left. Pain is provoked by standing and walking for periods of 15 minutes or more. Pain is alleviated with indications, injections, physical therapy on 12/20 which made it worse, chiropractic treatments 1 year ago, stretching regimen at home, repositioning and rest. Interventional pain procedures completed include facet blocks of the medial branches bilateral L4-L5, L5-S1 #2 Patient is currently on diclofenac gel from Dr. Taveras Patient denies any side effects of the medication(s), denies excessive drowsiness or sleepiness, denies suicidal ideation and reports that the current pain medication is helping to control the pain and improve activities of daily living. Patient denies any motor or sensory deficits. Patient denies any fever or night sweats, denies any change in the bowel movements or urination. Physical Examination: -Constitutional: Cooperative. Not in acute distress . -HEENT: Neck is supple. No lymphadenopathy. No thyromegaly. Normal thyroid size. Eyes: No ptosis , no icterus, no photophobia. ENT: No auditory deficits. Normal oropharynx. No Thrush. - Respiratory: Chest clear to auscultations bilaterally. No wheezing. No rhonchi. - Cardiovascular: Regular rate and rhythm. S1 / S2 , no S3 , no S4. - Gastrointestinal: Abdomen soft no tenderness. Bowel sounds positive in all four quadrants. No organomegaly. - Genitourinary: Deferred. - Neurologic: Cranial nerve II to XII intact. No focal neurological deficits. - Psychatric: Alert & oriented x 3. Matching mood & appropriate affect. Molly gment and insight intact. - Lymphatic: No Lymphadenopathy. - Musculoskeletal: Cervical spine: Muscle bulk/ tone/ strength in the bilateral upper extremities normal. Facet loading test cervical area positive. Lumbar spine: Motor bulk/ tone/ strength lower extremities , thigh and legs : 5/5 Deep tendon reflexes : Normal Knee Jerk. Normal Ankle Jerk . Vertebral body tenderness to palpation over Lumbar Facet Loading Test positive over bilateral L4-L5, L5-S1 with jump reflex Straight Leg Raise: positive at 30 degrees right side/ left side Gaenslen's Test positive Sacral spine : Severe tenderness over the Sacroiliac joint: right side / left side Range of motion: Flexion of the lumbar spine <60 degrees Range of motion: Extension of the lumbar spine <20 degrees Gaenslen's Test positive Jennifer test: positive right side / left side Assessment and plan: Chronic low back pain secondary to lumbar degenerative disc disease , lumbar spondylosis with facet arthropathy without myelopathy Recommendation of bilateral RFA of L4-L5, L5-S1. Risks, benefits of procedure discussed and patient verbalized understanding. Denies anticoagulant use. Denies medical history diabetes mellitus. All patient questions answered MAPS reviewed and it was appropriate. I have spent 31 minutes on patient care today. Dr Hilario was available by phone for the evaluation of this patient. The time was used to review the medical records including relevant urine studies and Prescription history (MAPs), review of the available imaging, evaluation and examination of the patient, coordination of care with the medical staff and if applicable referring physicians, as well as creation of the medical record Objective - Vital Signs Vital signs: Vital Signs Temp 98.4 F 01/03/22 11:45 Pulse 62 01/03/22 11:45 Resp 18 01/03/22 11:45 BP 140/64 01/03/22 11:45 Pulse Ox 96 01/03/22 11:45 Intake & Output 01/02/22 01/03/22 01/03/22 18:59 06:59 18:59 Weight 182 kg PQRS Measure Charge Sheet Mode of Arrival: Ambulatory - Pain Location Lower Back Non-Pharmacological Interventions: Chiropractic Treatment, Heat, Inactivity, Physical Therapy Pharmacological Interventions: Block, Scheduled Medication PQRS Narrative: Smoking Status Never smoker Blood Pressure 140/64 Pain Intensity [Lower Back] 7 Scale Used Numeric (1 - 10) Home Medications: Ambulatory Orders Ascorbic Acid [Vitamin C] 500 mg PO DAILY 09/23/19 Calcium Carbonate [Calcium] 600 mg PO DAILY 09/23/19 Cyanocobalamin [Vitamin B-12] 500 mcg PO DAILY 09/23/19 Diclofenac Sodium [Voltaren] 75 mg PO DAILY 09/23/19 Glucosamine/Chondr Ibrahim A Sod [Osteo Bi-Flex Caplet] 1 tab PO BID 09/23/19 Pantoprazole [Protonix] 40 mg PO DAILY 09/23/19 hydroCHLOROthiazide [Hydrodiuril] 25 mg PO DAILY 09/23/19 Losartan Potassium 100 mg PO DAILY 08/06/21 Cholecalciferol (Vitamin D3) [Vitamin D3 (125 MCG = 5,000 IU)] 125 mcg PO DAILY 08/31/21 Rosuvastatin Calcium [Crestor] 40 mg PO DAILY 12/15/21
== END ==
LOC: PNWHC3 11:03
PROVIDERS: ATTEND Physician Assistant Medical
DX: M51.36 Other intervertebral disc degeneration, lumbar region (principal); M47.816 Spondylosis without myelopathy or radiculopathy, lumbar region; G89.29 Other chronic pain; Z87.891 Personal history of nicotine dependence
CPT/HCPCS: 99211

== ENCOUNTER 2022-02-08 08:12 | Day surgery (SDC) | payer MEDICARE ==
[2022-02-07 11:10] VITALS: BMI 33.4
[~2022-02-08 08:12] MED LIST changes: -ACETAMINOPHEN TAB 500 MG TAB PO ONE; -DEXAMETHASONE SOD PHOS (MDV) 100 MG/10 ML VIAL IVP ONE; -DEXAMETHASONE SOD PHOSPHATE 4 MG/ML 1 ML VIAL ONE; -HYDROcodone/APAP 5-325MG 1 EACH TAB PO ONE; -KETOROLAC 30 MG/ML 1 ML VIAL IVP ONE; -LACTATED RINGERS 1,000 ML IV ONE; -LIDOCAINE 1% 20 ML VIAL (10MG/ML) FOR IV START INTRADERMA PRN; -LIDOCAINE 1% INJ 10MG/ML (20 ML MDV) ONE; -MELOXICAM 7.5 MG TAB PO ONE; -METOPROLOL TARTRATE 5 MG/5 ML VIAL IVP ONE; -MIDAZOLAM 2 MG/2 ML VIAL IVP ONE; -MIDAZOLAM 2 MG/2 ML VIAL ONE; -PROPOFOL 10 MG/ML 20 ML VIAL IV ONE; -ROPIVACAINE 246.25 MG, EPINEPHrine 0.5 MG, KETOROLAC 30 MG, cloNIDine HCL/PF 80 MCG, WA... MISCELLANE ONE; -ROPIVACAINE 5 MG/ML 30 ML VIAL ONE; -SUCCINYLCHOLINE CHLORIDE 100 MG/5 ML SYR IV ONE; -TRANEXAMIC ACID 1,000 MG in SODIUM CHLORIDE 0.9% 100 ML IVPB ONE; -fentaNYL (PF) 50 MCG/ML 2 ML AMP ONE
[2022-02-08 08:34] VITALS: TEMP 96.7
[2022-02-08] MEDS ORDERED: MIDAZOLAM 2 MG/2 ML VIAL ONE (08:40)
[2022-02-08] MEDS ORDERED: ROPIVACAINE 5MG/ML 20ML VIAL ONE (08:40)
[2022-02-08] MEDS ORDERED: LIDOCAINE 1% INJ 10MG/ML (20 ML MDV) ONE (08:40)
--- NOTE | 2022-02-08 09:10 | P.PCN ---
Date of Procedure: 02/08/22 Description of Procedure: PREOPERATIVE DIAGNOSIS: Lumbar Facet Arthropathy without myelopathy POSTOPERATIVE DIAGNOSIS: Same PROCEDURES: RIGHT/LEFT Radiofrequency thermocoagulation of L4-5, L5-S1 medial branches, with fluoroscopic guidance ANESTHESIA: IV sedation with versed and local infiltration with lidocaine 1% 10 ml Imaging: Fluoroscopy was used, images where saved to the medical record PROCEDURE INDICATION: The patient with low back pain secondary to lumbar facet arthropathy who had more than 50% relief of pain with previous diagnostic lumbar medial branch block with local anesthetic. PROCEDURE DESCRIPTION / TECHNIQUE: The patient was seen and identified in the preoperative area. Risks, benefits, complications, including but not limited to risk of infection, bleeding, allergic reactions to the medications and no complete pain relief, and alternatives were discussed with the patient, the patient agreed to proceed with the procedure and signed the consent. IV was started. Vital signs remained stable throughout the procedure. Patient was taken to the OR and time out was completed. The patient was placed in the prone position on the procedure table. The lumber area was prepped and draped in the usual sterile fashion. Vital signs were closely monitored during the procedure. IV sedation was used during the procedure to decrease patient anxiety. Using AP and then oblique fluoroscopy, the eye of the Jose dog corresponding to the connection between the superior and transverse articular processes of L4, L5, and sacral Ala were identified, marked, and localized with 1% lidocaine. Subsequently, a 20 [id number] radiofrequency cannula with a 10-mm active tip was advanced guided by fluoroscopy to the junction of the pedicle and transverse process of each identified level. Each site then underwent sensory testing at 50 Hz and 0 to 1 volt and motor testing at 2.5 Hz and 0 to 3 volt with local stimulation, no radicular symptoms sensed by the patient and no obvious motor stimulation noted. Thereafter the tested sites underwent radiofrequency thermocoagulation at 80 degrees celsius for 90 seconds after injecting 1 ml of PF lidocaine 1%. Then after the thermocoagulation was done, 1 ml of the block solution containing ropivaciane 0.5% was injected at the lesioned sites after negative aspiration of CSF and blood and with no paresthesias. Cannulas were retracted. At the end of the procedure, the skin was cleansed and bandages were applied. COMPLICATIONS: No acute complications. DISPOSITION / PLANS: The patient was placed in a supine position and transferred to the recovery area in a stable condition for observation and was discharged from the recovery room after meeting discharge criteria. Home discharge instructions given to the patient by the staff. The patient was reexamined prior to discharge. Patient will follow up as directed. I have advised the patient to give the procedure couple weeks to determine if there is any benefit. As for discharge instructions instructions, Motrin and ice if there is any soreness over the next 24-48 hours.
[2022-02-08 09:37] VITALS: BP 131/62; PULSE 64; RESP 20
== END 2022-02-08 09:52 | disposition home or self-care (01) ==
LOC: ORPAIN 08:12
PROVIDERS: ATTEND Hospitalist
DX: M47.896 Other spondylosis, lumbar region (principal)
CPT/HCPCS: 64635; 64636; J2250; J2001; J2795; 99152

== ENCOUNTER → 2022-02-17 | Outpatient (CLI) | payer MEDICARE ==
--- NOTE | 2022-02-08 10:02 | FL ---
EXAMINATION TYPE: FL guided pain mgmt statistic DATE OF EXAM: 02/08/2022 FLUOROSCOPY Fluoroscopy time of 7 seconds was used during bilateral lumbar radiofrequency ablation. 4 image/s do cument/s the procedure.
--- NOTE | 2022-02-21 11:20 | MM ---
Reason for exam: screening (asymptomatic). Last mammogram was performed 2 years and 1 month ago. History: Patient is postmenopausal. Benign excisional biopsy of the left breast, September 03, 1998. Cyst aspiration of the left breast, August 11, 1998. Benign core biopsy of the left breast, October 16, 1997. Benign excisional biopsy of the left breast, 1996. Benign excisional biopsy of the left breast, 1960. Took estrogen for 10 years. Took progesterone for 10 years. Physical Findings: A clinical breast exam by your physician is recommended on an annual basis and results should be correlated with mammographic findings. MG 3D Screening Mammo W/Cad Bilateral CC, MLO, and XCCL view(s) were taken. Prior study comparison: January 07, 2020, bilateral MG 3d screening mammo w/cad. October 29, 2018, bilateral MG 3d screening mammo w/cad. There are scattered fibroglandular densities. No significant changes when compared with prior studies. ASSESSMENT: Benign, BI-RAD 2 RECOMMENDATION: Routine screening mammogram of both breasts in 1 year.
== END | disposition home or self-care (01) ==
LOC: RADMAMWWP 13:30
PROVIDERS: ATTEND Family Medicine
DX: Z12.31 Encounter for screening mammogram for malignant neoplasm of breast (principal); Z78.0 Asymptomatic menopausal state
CPT/HCPCS: 77063; 77067

== ENCOUNTER → 2022-03-07 | Outpatient (CLI) | payer MEDICARE ==
--- NOTE | 2022-03-07 11:19 | P.PN ---
Subjective Progress Note Date: 03/07/22 Principal diagnosis: A 81 yr old female with daughter at side with a history of severe and chronic low back pain secondary to lumbar degenerative disc diseases and lumbar spondylosis with facet arthropathy presents today for evaluation status post bilateral RFA L4-L5, L5-S1. She states she experienced 100% pain relief for 2 days status post procedure. Pain level is 3 out of 10 intensity, dull, achy in the lumbar spine with radiation of sharp pain to the right hip. Pain is provoked by standing where it escalates as high as 9 out of 10 in intensity. Pain is alleviated with sitting, ice or heat while she is standing and rest. Interventional pain procedures completed include bilateral RFA L3-L5 Patient is currently on denies Patient denies any side effects of the medication(s), denies excessive drowsiness or sleepiness, denies suicidal ideation and reports that the current pain medication is helping to control the pain and improve activities of daily living. Patient denies any motor or sensory deficits. Patient denies any fever or night sweats, denies any change in the bowel movements or urination. Physical Examination: -Constitutional: Cooperative. Not in acute distress . -HEENT: Neck is supple. No lymphadenopathy. No thyromegaly. Normal thyroid size. Eyes: No ptosis , no icterus, no photophobia. ENT: No auditory deficits. Normal oropharynx. No Thrush. - Respiratory: Chest clear to auscultations bilaterally. No wheezing. No rhonchi. - Cardiovascular: Regular rate and rhythm. S1 / S2 , no S3 , no S4. - Gastrointestinal: Abdomen soft no tenderness. Bowel sounds positive in all four quadrants. No organomegaly. - Genitourinary: Deferred. - Neurologic: Cranial nerve II to XII intact. No focal neurological deficits. - Psychatric: Alert & oriented x 3. Matching mood & appropriate affect. Judgme nt and insight intact. - Lymphatic: No Lymphadenopathy. - Musculoskeletal: Cervical spine: Muscle bulk/ tone/ strength in the bilateral upper extremities normal. Facet loading test cervical area positive. Lumbar spine: Motor bulk/ tone/ strength lower extremities , thigh and legs : 5/5 Deep tendon reflexes : Normal Knee Jerk. Normal Ankle Jerk . Vertebral body tenderness to palpation over L1, L2 Lumbar Facet Loading Test positive Straight Leg Raise: positive at 30 degrees right side/ left side Gaenslen's Test positive Sacral spine : Severe tenderness over the Sacroiliac joint: right side / left side Range of motion: Flexion of the lumbar spine <60 degrees Range of motion: Extension of the lumbar spine <20 degrees Gaenslen's Test positive Jennifer test: positive right side / left side Assessment and plan: Chronic low back pain secondary to lumbar degenerative disc disease , lumbar spondylosis with facet arthropathy without myelopathy Recommendation of LESI L1-L2. May need a series of injections, up to 3 within a six-month period, for optimal pain relief. Risks, benefits of procedure discussed and patient verbalized understanding. Denies anticoagulant use her medical history of diabetes. All patient questions answered MAPS reviewed and it was appropriate. I have spent 31 minutes on patient care today. Dr Hilario was available by phone for the evaluation of this patient. The time was used to review the medical records including relevant urine studies and Prescription history (MAPs), review of the available imaging, evaluation and examination of the patient, coordination of care with the medical staff and if applicable referring physicians, as well as creation of the medical record PQRS Measure Charge Sheet PQRS Narrative: Smoking Status Never smoker Home Medications: Ambulatory Orders Ascorbic Acid [Vitamin C] 500 mg PO DAILY 09/23/19 Calcium Carbonate [Calcium] 600 mg PO DAILY 09/23/19 Cyanocobalamin [Vitamin B-12] 500 mcg PO DAILY 09/23/19 Diclofenac Sodium [Voltaren] 75 mg PO DAILY 09/23/19 Glucosamine/Chondr Ibrahim A Sod [Osteo Bi-Flex Caplet] 1 tab PO BID 09/23/19 Pantoprazole [Protonix] 40 mg PO DAILY 09/23/19 hydroCHLOROthiazide [Hydrodiuril] 25 mg PO DAILY 09/23/19 Losartan Potassium 100 mg PO DAILY 08/06/21 Cholecalciferol (Vitamin D3) [Vitamin D3 (125 MCG = 5,000 IU)] 125 mcg PO DAILY 08/31/21 Rosuvastatin Calcium [Crestor] 40 mg PO DAILY 12/15/21 Diclofenac Sodium Gel [Voltaren Gel] 4 gm TOPICAL QID 30 Days #100 gm 01/03/22
[2022-03-07 11:27] VITALS: BP 138/64; PULSE 70; RESP 18
== END ==
LOC: PNWHC3 10:55
PROVIDERS: ATTEND Specialist
DX: M51.36 Other intervertebral disc degeneration, lumbar region (principal); M47.816 Spondylosis without myelopathy or radiculopathy, lumbar region; G89.29 Other chronic pain; Z88.7 Allergy status to serum and vaccine
CPT/HCPCS: 99211

== ENCOUNTER 2022-03-22 07:25 | Day surgery (SDC) | payer MEDICARE ==
[2022-03-22 07:58] VITALS: RESP 16; TEMP 97.6
[2022-03-22] MEDS ORDERED: fentaNYL (PF) 50 MCG/ML 2 ML AMP ONE (08:03)
[2022-03-22] MEDS ORDERED: IOPAMIDOL M200 10 ML VIAL ONE (08:03)
[2022-03-22] MEDS ORDERED: methylPREDNISolone ACETATE 40 MG/ML 1 ML VIAL ONE (08:03)
[2022-03-22] MEDS ORDERED: MIDAZOLAM 2 MG/2 ML VIAL ONE (08:03)
--- NOTE | 2022-03-22 08:16 | P.PCN ---
Date of Procedure: 03/22/22 Description of Procedure: PREOPERATIVE DIAGNOSIS: lumbar radiculopathy POSTOPERATIVE DIAGNOSIS: Lumbar radiculopathy PROCEDURE 1. Lumbar epidural steroid injection under fluoroscopic guidance at the L1-L2 level. 2. Lumbar epidurogram. Imaging: Fluoroscopy was used, images where saved to the medical record ANESTHESIA: Local with 1% lidocaine 5 ml and 1 mg of Versed and 50 mCG of fentanyl EBL: Minimal PROCEDURE INDICATION: The patient with low back pain and radiculitis symptoms unresponsive to conservative treatment. Fluoroscopy was used to optimize visualization of the needle placement and to maximize safety. PROCEDURE DESCRIPTION / TECHNIQUE: The patient was seen and identified in the preoperative area. Risks, benefits, complications including but not limited to infections ,bleeding ,allergic reaction to the medications, nerve damage and incomplete pain relief , as well as alternatives to the procedure were discussed with the patient. The patient agreed to proceed with the procedure and signed the consent. IV was started, and vital signs were stable. Patient was taken to the OR and time out was completed. The patient was placed in the prone position on procedure table and a pillow was placed under the abdomen to reduce lumbar lordosis. The lumbosacral area was prepped and draped in the usual sterile fashion. Vitals were closely monitored during the procedure. Using anterior-posterior fluoroscopy, the L1-L2 interlaminar space was identified and the skin over this site was marked and then infiltrated with 1% lidocaine subcutaneously. Subsequently, a 18-gauge Tuohy epidural needle was inserted and advanced toward the epidural space using the Loss of resistance technique and guided by AP and lateral fluoroscopy. The correct needle position in the epidural space was verified with the injection of 1 mL of Omnipaque 180 contrast to observe an acceptable epidurogram, after negative aspiration for blood and CSF and in the absence of paresthesias. Again after negative aspiration, a 3 ml mixture containing 40mg of depomedrol and 2 ml of preservative free Normal Saline was injected and a washout of epidurogram was seen. Needle was withdrawn intact, skin was cleansed, and bandages were applied. COMPLICATIONS: None DISPOSITION / PLANS: The patient was placed in a supine position and transferred to the recovery area in a stable condition for observation. There was no evidence of lower extremity motor or sensory deficit after the procedure. Patient was discharged from the recovery room after meeting discharge criteria. Home discharge instructions were given to the patient by the staff. The patient was reexamined prior to discharge. The patient will follow up as directed.
[2022-03-22] MEDS ORDERED: IV FLUID CONTINUATION 1,000 ML IV ONE (08:24)
--- NOTE | 2022-03-22 08:30 | FL ---
EXAMINATION TYPE: FL guided pain mgmt statistic DATE OF EXAM: 03/22/2022 CLINICAL HISTORY: Low back pain. TECHNIQUE: Fluoroscopy. COMPARISON: None. FINDINGS: Fluoroscopic guidance was provided during pain relief procedure performed by Dr. Davila . A total of 3 seconds of fluoroscopic time was utilized during the procedure and two spot images are acquired. Images acquired shows needle localization at L1 level. IMPRESSION: As Above.
[2022-03-22 08:36] VITALS: BP 120/70; PULSE 60
== END 2022-03-22 08:50 | disposition home or self-care (01) ==
LOC: ORPAIN 07:25
PROVIDERS: ATTEND Hospitalist
DX: M54.16 Radiculopathy, lumbar region (principal)
CPT/HCPCS: 62323; J2250; J1030; J3010; Q9966

== ENCOUNTER → 2022-04-20 | Outpatient (CLI) | payer MEDICARE ==
--- NOTE | 2022-04-20 11:38 | P.PAINPG ---
PQRS Measure Charge Sheet Comment: A 82 yr old a male with a history of severe and chronic low back pain secondary to lumbar degenerative disc diseases and lumbar spondylosis with facet arthropathy presents today for evaluation status post LESI L1-L2 #1. Patient states she expressed 50% pain relief for 2 days status post procedure. Pain clemencia bonilla is currently at 5 out of 10 in intensity, constant, sharp, achy in the right lower aspect of her lumbar spine with radiation of sharp, shooting pain to the right hip. Pain is provoked by standing and walking for periods of 5 minutes or more. Pain is alleviated with medications, topical Lidoderm which is ineffective, injections in the past, physical therapy in 2020 which is ineffective, chiropractic treatments in 2020 which were ineffective, repositioning and sitting. Interventional pain procedures completed include BL RFA L3-L5, LESI L1-L2 1. Patient is currently on Tylenol OTC Patient denies any side effects of the medication(s), denies excessive drowsiness or sleepiness, denies suicidal ideation and reports that the current pain medication is helping to control the pain and improve activities of daily living. Patient denies any motor or sensory deficits. Patient denies any fever or night sweats, denies any change in the bowel movements or urination. Physical Examination: -Constitutional: Cooperative. Not in acute distress . -HEENT: Neck is supple. No lymphadenopathy. No thyromegaly. Normal thyroid size. Eyes: No ptosis , no icterus, no photophobia. ENT: No auditory deficits. Normal oropharynx. No Thrush. - Respiratory: Chest clear to auscultations bilaterally. No wheezing. No rhonchi. - Cardiovascular: Regular rate and rhythm. S1 / S2 , no S3 , no S4. - Gastrointestinal: Abdomen soft no tenderness. Bowel sounds positive in all four quadrants. No organomegaly. - Genitourinary: Deferred. - Neurologic: Cranial nerve II to XII intact. No focal neurological deficits. - Psychatric: Alert & oriented x 3. Matching mood & appropriate affect. Judgment and insight intact. - Lymphatic: No Lymphadenopathy. - Musculoskeletal: Cervical spine: Muscle bulk/ tone/ strength in the bilateral upper extremities normal Vertebral body tenderness to palpation over L1, L2 Facet loading test positive Thoracic spine Muscle bulk / tone/ strength in the bilateral paraspinal muscles normal Vertebral body tender to palpation over Facet loading test positive Lumbar spine: Motor bulk/ tone/ strength lower extremities , thigh and legs : 5/5 Deep tendon reflexes : Normal Knee Jerk. Normal Ankle Jerk . Vertebral body tenderness to palpation over Lumbar Facet Loading Test positive Straight Leg Raise: positive at 30 degrees right side/ left side Gaenslen's Test positive Sacral spine : Severe tenderness over the Sacroiliac joint: right side / left side Range of motion: Flexion of the lumbar spine <60 degrees Range of motion: Extension of the lumbar spine <20 degrees Gaenslen's Test positive Dominik's Test positive Jennifer test: positive right side / left side Thigh Thrust Test Sacral Thrust Test Assessment and plan: Chronic low back pain secondary to lumbar degenerative disc disease , lumbar spondylosis with facet arthropathy without myelopathy Recommendation of R TF GAIL L1-L2. Patient may need a series of injections, up to 3 within a 6 month timeframe, for optimal pain relief. Risks, benefits of procedure discussed and pt verbalized understanding. Denies anticoagulant use or medical history of diabetes. All patient questions answered I have spent 31 minutes on patient care today. Dr Hilario was available by phone for the evaluation of this patient. The time was used to review the medical records including relevant urine studies and Prescription history (MAPs), review of the available imaging, evaluation and examination of the patient, coordination of care with the medical staff and if applicable referring physicians, as well as creation of the medical record PQRS Narrative: Smoking Status Never smoker Home Medications: Ambulatory Orders Ascorbic Acid [Vitamin C] 500 mg PO DAILY 09/23/19 Calcium Carbonate [Calcium] 600 mg PO DAILY 09/23/19 Cyanocobalamin [Vitamin B-12] 500 mcg PO DAILY 09/23/19 Diclofenac Sodium [Voltaren] 75 mg PO QAM 09/23/19 Glucosamine/Chondr Ibrahim A Sod [Osteo Bi-Flex Caplet] 1 tab PO BID 09/23/19 Pantoprazole [Protonix] 40 mg PO QAM 09/23/19 hydroCHLOROthiazide [Hydrodiuril] 25 mg PO QMONTHLY 09/23/19 Losartan Potassium 100 mg PO QAM 08/06/21 Cholecalciferol (Vitamin D3) [Vitamin D3 (125 MCG = 5,000 IU)] 125 mcg PO DAILY 08/31/21 Rosuvastatin Calcium [Crestor] 40 mg PO HS 12/15/21 Diclofenac Sodium Gel [Voltaren Gel] 4 gm TOPICAL QID 30 Days #100 gm 01/03/22 Controlled Substance Measures - Controlled Substance Measures Is patient prescribed a controlled substance at discharge?: No
[2022-04-20 11:52] VITALS: BP 121/76; PULSE 64; RESP 18; TEMP 97.9
== END ==
LOC: PNWHC3 10:56
PROVIDERS: ATTEND Specialist
DX: M51.36 Other intervertebral disc degeneration, lumbar region (principal); M47.816 Spondylosis without myelopathy or radiculopathy, lumbar region; G89.29 Other chronic pain; Z88.7 Allergy status to serum and vaccine; Z88.8 Allergy status to other drugs, medicaments and biological substances
CPT/HCPCS: 99211

== ENCOUNTER 2022-06-02 09:30 | Day surgery (SDC) | payer MEDICARE ==
[2022-06-02 09:54] VITALS: TEMP 97
[2022-06-02] MEDS ORDERED: fentaNYL (PF) 50 MCG/ML 2 ML AMP ONE (09:58)
[2022-06-02] MEDS ORDERED: MIDAZOLAM 2 MG/2 ML VIAL ONE (09:58)
[2022-06-02] MEDS ORDERED: methylPREDNISolone ACETATE 40 MG/ML 1 ML VIAL ONE (09:58)
[2022-06-02] MEDS ORDERED: IOPAMIDOL M200 10 ML VIAL ONE (09:58)
--- NOTE | 2022-06-02 10:18 | P.PCN ---
Date of Procedure: 06/02/22 Procedure(s) Performed: Right L1-L2 lumbar transforaminal epidural injection Description of Procedure: PREOPERATIVE DIAGNOSIS: Lumbar radiculopathy POSTOPERATIVE DIAGNOSIS: Lumbar radiculopathy PROCEDURE 1. Transforaminal epidural steroid injection under fluoroscopic guidance right L1-L2 2. Lumbar epidurogram IMAGING Fluoroscopy was used, images where saved to the medical record ANESTHESIA: Medication Administered by: Nurse Sedation Type: Moderate sedation Sedation Supervision start time: 1000 Sedation Supervision end time: 1017 PROCEDURE DESCRIPTION / TECHNIQUE: The patient was seen and identified in the preoperative area. Risks, benefits, complications, and alternatives were discussed with the patient. The patient agreed to proceed with the procedure and signed the consent, vital signs were stable prior to the procedure. Patient was taken to the OR and time out was completed. The patient was placed in the prone position on procedure table and a pillow was placed under the abdomen to reduce lumbar lordosis. The lumbosacral area was prepped and draped in the usual sterile fashion. Vital signs were closely monitored during the procedure. Conscious sedation was used. Using oblique fluoroscopy, the chin of the "Jose dog" at the pedicle and the skin and deeper tissues just below was localized with 1% lidocaine. Subsequently, a 22-gauge 3.5-inch spinal needle was advanced under a tunneled view fluoroscopic guidance just underneath the chin of the "Jose dog". Under lateral fluoroscopy, the needle was then advanced to the posterior border interforaminal space. After negative aspiration of CSF and blood and with no paresthesias, 1 mL of Omnipaque-240 contrast dye was injected excellent epidurogram. Subsequently, a solution totalling 2ml of dexamethasone and PFNS was injected after negative aspiration (total of 10mg of dexamethasone was used). The needle was removed intact. COMPLICATIONS: None DISPOSITION: The patient was placed in a supine position and transferred to the recovery area in a stable condition for observation. There was no evidence of lower extremity motor or sensory deficit after the procedure. Patient was discharged from the recovery room after meeting discharge criteria. Home discharge instructions were given to the patient by the staff. The patient was reexamined prior to discharge. Follow up as directed.
[2022-06-02] MEDS ORDERED: IV FLUID CONTINUATION 1,000 ML IV ONE (10:20)
[2022-06-02 10:26] VITALS: RESP 17
--- NOTE | 2022-06-02 10:28 | FL ---
Intraoperative/procedural fluoroscopic services were provided. Total fluoroscopy time is 20 seconds w ith a total of 1 submitted image to PACS. Please see the operative note for further details.
[2022-06-02 10:36] VITALS: BP 133/66; PULSE 57
== END 2022-06-02 10:50 | disposition home or self-care (01) ==
LOC: ORPAIN 09:30
PROVIDERS: ATTEND Hospitalist
DX: M54.16 Radiculopathy, lumbar region (principal); Z88.8 Allergy status to other drugs, medicaments and biological substances; Z88.7 Allergy status to serum and vaccine; Z79.82 Long term (current) use of aspirin; Z79.899 Other long term (current) drug therapy; Z79.1 Long term (current) use of non-steroidal anti-inflammatories (NSAID); Z80.9 Family history of malignant neoplasm, unspecified; Z82.49 Family history of ischemic heart disease and other diseases of the circulatory system
CPT/HCPCS: 64483; J2250; J1030; J3010; Q9966; 99152

== ENCOUNTER 2022-07-29 10:54 | Day surgery (SDC) | payer MEDICARE ==
[2022-07-28 13:33] VITALS: BMI 34.7
[~2022-07-29 10:54] MED LIST changes: +LIDOCAINE 1% (10MG/ML) FOR IV START INTRADERMA PRN
[2022-07-29 11:31] VITALS: TEMP 97.7
[2022-07-29] MEDS ORDERED: fentaNYL (PF) 50 MCG/ML 2 ML AMP ONE (11:52)
[2022-07-29] MEDS ORDERED: ROPIVACAINE 5 MG/ML 20 ML AMPULE ONE (11:52)
[2022-07-29] MEDS ORDERED: MIDAZOLAM 2 MG/2 ML VIAL ONE (11:52)
[2022-07-29] MEDS ORDERED: methylPREDNISolone ACETATE 40 MG/ML 1 ML VIAL ONE (11:52)
--- NOTE | 2022-07-29 12:06 | P.PCN ---
Date of Procedure: 07/29/22 Procedure(s) Performed: PREOPERATIVE DIAGNOSIS : 1- Lumbar spondylosis with Facet Arthropathy without myelopathy . 2- Lumber degenerative disc disease POSTOPERATIVE DIAGNOSIS: 1- Lumbar spondylosis with Facet Arthropathy without myelopathy . 2- Lumber degenerative disc disease PROCEDURE: Diagnostic Right L1 , L2, and [id number] branch block under fluoroscopy guidance(fluoroscopy images available in the radiology Department ) ( To target the facet joint between Right L2-3 , and L3-4 ) # 1st ANESTHESIA:, Monitored anesthesia care as per anesthesia department. EBL: Minimal COMPLICATION: None PROCEDURE INDICATION: Chronic low back pain secondary to Facet arthropathy unresponsive to conservative treatment. PROCEDURE DESCRIPTION: the patient was seen and identified in the preop holding area , risks and benefits and possible complications of the procedure and alternative were discussed with the patient, and the patient agreed to proceed with the procedure and signed the consent and vital signs monitored during the procedure and fluoroscopy was used to maximize the benefit and accuracy of the needle placement, and sedation was given to decrease patient anxiety, patient was taken to the procedure room and placed in prone position vital signs monitored in the back prepped with chlorhexidine X3 then under strict sterile technique using a right oblique fluoroscopy ,the junction of the transverse process and the superior articulating process of the right L1 , L2, and L3 vertebra which corresponding to the fluoroscopy image of the eye of the Jose dog on the block side for the medial branches and subsequently , after local infiltration of skin and subcu tissuies with Ropivacaine 0.5 % , one mL at each level ,then 25-gauge Quincke-type needles , 3 needle was used , each one of them placed at the junction of the base of the transverse process and the superior articular process at the appropriate level, and the needle was advanced until the periosteum contacted, needle placement confirmed with AP oblique and lateral view and after appropriate needle placement confirmed, and after negative aspiration for heme and CSF and there was no paresthesia 1-1/2 mL of Ropivacaine 0.5% mixed with 20 mg Depo-Medrol , then half mL injected at each level after negative aspiration the needle subsequently removed . At the end of the procedure and the needles removed and a bandage applied after the skin was cleaned the cleaning solution patient taken to recovery room in stable condition and monitors in the recovery room for 20-30 minutes and discharged home in stable condition after discharge criteria met and patient will follow up with the pain clinic in 2-4 weeks
[2022-07-29] MEDS ORDERED: IV FLUID CONTINUATION 1,000 ML IV ONE (12:12)
[2022-07-29 12:15] VITALS: RESP 18
--- NOTE | 2022-07-29 12:26 | FL ---
EXAMINATION TYPE: FL guided pain mgmt statistic DATE OF EXAM: 07/29/2022 CLINICAL HISTORY: Low back pain. TECHNIQUE: Fluoroscopy. COMPARISON: None. FINDINGS: Fluoroscopic guidance was provided during pain relief procedure performed by Dr. Hilario . A total of 3 seconds of fluoroscopic time was utilized during the procedure and two spot images ar e acquired. Images acquired shows needle localization at several levels in the lumbar spine. IMPRESSION: As Above.
[2022-07-29 12:28] VITALS: BP 142/84; PULSE 55
== END 2022-07-29 12:42 | disposition home health service (06) ==
LOC: ORPAIN 10:54
PROVIDERS: ATTEND Specialist
DX: M51.36 Other intervertebral disc degeneration, lumbar region (principal); M47.896 Other spondylosis, lumbar region; I10 Essential (primary) hypertension; E78.5 Hyperlipidemia, unspecified; K21.9 Gastro-esophageal reflux disease without esophagitis; Z88.1 Allergy status to other antibiotic agents; Z88.7 Allergy status to serum and vaccine; Z79.899 Other long term (current) drug therapy
CPT/HCPCS: 64493; 64494; J2250; J1030; J3010; J2795

== ENCOUNTER → 2022-08-15 | Outpatient (CLI) | payer MEDICARE ==
[2022-08-15 11:13] VITALS: BP 144/67; PULSE 67; RESP 16
--- NOTE | 2022-08-15 14:49 | P.PAINPG ---
PQRS Measure Charge Sheet Comment: A 82 yr old female with a history of severe and chronic low back pain secondary to lumbar degenerative disc diseases and lumbar spondylosis with facet arthropathy without myelopathy presents today for evaluation of R MBB L2-L3, L3- L4 #1 Pt states she experienced 75% pain relief x 2 days s/p procedure. Pain level is currently at 2/10 in intensity, constant, localized in the lumbar spine, deep sharp in character w shooting towards the hips. Pain is provoked as high as 8/10 by walking/standing for periods of 10 min or more . Pain is alleviated with PT in 2020, topicals, repositioning and rest. Interventional pain procedures completed include R MBB L2-L4 x1 Patient is currently on Diclofenac gel Patient denies any side effects of the medication(s), denies excessive drowsiness or sleepiness, denies suicidal ideation and reports that the current pain medication is helping to control the pain and improve activities of daily living. Patient denies any motor or sensory deficits. Patient denies any fever or night sweats, denies any change in the bowel movements or urination. Physical Examination: -Constitutional: Cooperative. Not in acute distress . - Neurologic: Cranial nerve II to XII intact. No focal neurological deficits. - Psychatric: Alert & oriented x 3. Matching mood & appropriate affect. Judgment and insight intact. - Musculoskeletal: Cervical spine: Muscle bulk/ tone/ strength in the bilateral upper extremities normal Vertebral body tenderness to palpation over Spurling test positive Distraction test positive Facet loading test positive Thoracic spine Muscle bulk / tone/ strength in the bilateral paraspinal muscles normal Vertebral body tender to palpation over Facet loading test positive Lumbar spine: Motor bulk/ tone/ strength lower extremities , thigh and legs : 5/5 Deep tendon reflexes : Normal Knee Jerk. Normal Ankle Jerk . Vertebral body tenderness to palpation over R L2- L3, L3-L4 w jump reflex Lumbar Facet Loading Test positive Straight Leg Raise: positive at 30 degrees right side/ left side Gaenslen's Test positive Sacral spine : Severe tenderness over the Sacroiliac joint: right side / left side Range of motion: Flexion of the lumbar spine <60 degrees Range of motion: Extension of the lumbar spine <20 degrees Gaenslen's Test positive Dominik's Test positive Jennifer test: positive right side / left side Thigh Thrust Test Sacral Thrust Test Assessment and plan: Chronic low back pain secondary to lumbar degenerative disc disease , lumbar spondylosis with facet arthropathy without myelopathy Recommendation of R MBB L2-L3, L3-L4 #2. May need a series of injections, up until RFA, for optimal pain relief. Risks, benefits of procedure discussed and pt verbalized understanding. Admits to anticoagulant use or medical history of diabetes. Protocol for discontinuation/ continuation of medications diya procedure discussed. All patient questions answered I have spent less than 30 minutes on patient care today. Dr Hilario was available by phone for the evaluation of this patient. The time was used to review the medical records including relevant urine studies and Prescription history (MAPs), review of the available imaging, evaluation and examination of the patient, coordination of care with the medical staff and if applicable referring physicians, as well as creation of the medical record - Pain Location Right Lower Back Non-Pharmacological Interventions: Inactivity, Physical Therapy, Sitting Pharmacological Interventions: Block, Epidural, Scheduled Medication PQRS Narrative: Smoking Status Never smoker Home Medications: Ambulatory Orders Ascorbic Acid [Vitamin C] 500 mg PO DAILY 09/23/19 Calcium Carbonate [Calcium] 600 mg PO DAILY 09/23/19 Cyanocobalamin [Vitamin B-12] 500 mcg PO DAILY 09/23/19 Diclofenac Sodium [Voltaren] 75 mg PO QAM 09/23/19 Glucosamine/Chondr Ibrahim A Sod [Osteo Bi-Flex Caplet] 1 tab PO BID 09/23/19 Pantoprazole [Protonix] 40 mg PO QAM 09/23/19 hydroCHLOROthiazide [Hydrodiuril] 25 mg PO DAILY 09/23/19 Losartan Potassium 50 mg PO QAM 08/06/21 Cholecalciferol (Vitamin D3) [Vitamin D3 (125 MCG = 5,000 IU)] 125 mcg PO DAILY 08/31/21 Rosuvastatin Calcium [Crestor] 40 mg PO HS 12/15/21 Diclofenac Sodium Gel [Voltaren Gel] 4 gm TOPICAL QID 30 Days #100 gm 01/03/22 Aspirin 81 mg PO DAILY 06/02/22 Controlled Substance Measures - Controlled Substance Measures Is patient prescribed a controlled substance at discharge?: No
== END ==
LOC: PNWHC3 10:53
PROVIDERS: ATTEND Specialist
DX: M47.816 Spondylosis without myelopathy or radiculopathy, lumbar region (principal); M51.36 Other intervertebral disc degeneration, lumbar region; G89.29 Other chronic pain; E11.9 Type 2 diabetes mellitus without complications; Z79.01 Long term (current) use of anticoagulants
CPT/HCPCS: 99211

== ENCOUNTER 2022-09-09 08:17 | Day surgery (SDC) | payer MEDICARE ==
[2022-09-09 08:41] VITALS: TEMP 96.9
[2022-09-09] MEDS ORDERED: methylPREDNISolone ACETATE 40 MG/ML 1 ML VIAL ONE (09:26)
[2022-09-09] MEDS ORDERED: fentaNYL (PF) 50 MCG/ML 2 ML AMP ONE (09:26)
[2022-09-09] MEDS ORDERED: ROPIVACAINE 5 MG/ML 20 ML AMPULE ONE (09:26)
[2022-09-09] MEDS ORDERED: MIDAZOLAM 2 MG/2 ML VIAL ONE (09:26)
--- NOTE | 2022-09-09 09:41 | P.PCN ---
Date of Procedure: 09/09/22 Procedure(s) Performed: PREOPERATIVE DIAGNOSIS : 1- Lumbar spondylosis with Facet Arthropathy without myelopathy . 2- Lumber degenerative disc disease POSTOPERATIVE DIAGNOSIS: 1- Lumbar spondylosis with Facet Arthropathy without myelopathy . 2- Lumber degenerative disc disease PROCEDURE: Diagnostic Right L1 , L2, and [id number] branch block under fluoroscopy guidance(fluoroscopy images available in the radiology Department ) ( To target the facet joint between Right L2-3 , and L3-4 ) #2nd ANESTHESIA:, Monitored anesthesia care as per anesthesia department. EBL: Minimal COMPLICATION: None PROCEDURE INDICATION: Chronic low back pain secondary to Facet arthropathy unresponsive to conservative treatment. PROCEDURE DESCRIPTION: the patient was seen and identified in the preop holding area , risks and benefits and possible complications of the procedure and alternative were discussed with the patient, and the patient agreed to proceed with the procedure and signed the consent and vital signs monitored during the procedure and fluoroscopy was used to maximize the benefit and accuracy of the needle placement, and sedation was given to decrease patient anxiety, patient was taken to the procedure room and placed in prone position vital signs monitored in the back prepped with chlorhexidine X3 then under strict sterile technique using a right oblique fluoroscopy ,the junction of the transverse process and the superior articulating process of the right L1 , L2, and L3 vertebra which corresponding to the fluoroscopy image of the eye of the Jose dog on the block side for the medial branches and subsequently , after local infiltration of skin and subcu tissuies with Ropivacaine 0.5 % , one mL at each level ,then 22-gauge Quincke-type needles , 3 needle was used , each one of them placed at the junction of the base of the transverse process and the superior articular process at the appropriate level, and the needle was advanced until the periosteum contacted, needle placement confirmed with AP oblique and lateral view and after appropriate needle placement confirmed, and after negative aspiration for heme and CSF and there was no paresthesia 1-1/2 mL of Ropivacaine 0.5% mixed with 20 mg Depo-Medrol , then half mL injected at each level after negative aspiration the needle subsequently removed . At the end of the procedure and the needles removed and a bandage applied after the skin was cleaned the cleaning solution patient taken to recovery room in stable condition and monitors in the recovery room for 20-30 minutes and discharged home in stable condition after discharge criteria met and patient will follow up with the pain clinic in 2-4 weeks
[2022-09-09] MEDS ORDERED: IV FLUID CONTINUATION 1,000 ML IV ONE (09:44)
--- NOTE | 2022-09-09 09:49 | FL ---
Fluoroscopy INDICATION: Pain FINDINGS: Fluoroscopy time: 16 seconds. Images obtained: 2. IMPRESSIONS: 1. Documentation of fluoroscopy.
[2022-09-09 09:53] VITALS: RESP 16
[2022-09-09 10:10] VITALS: BP 136/83; PULSE 59
== END 2022-09-09 10:13 | disposition home or self-care (01) ==
LOC: ORPAIN 08:17
PROVIDERS: ATTEND Specialist
DX: M47.816 Spondylosis without myelopathy or radiculopathy, lumbar region (principal); M51.36 Other intervertebral disc degeneration, lumbar region; I10 Essential (primary) hypertension; K21.9 Gastro-esophageal reflux disease without esophagitis; Z79.899 Other long term (current) drug therapy; Z88.1 Allergy status to other antibiotic agents; Z88.7 Allergy status to serum and vaccine
CPT/HCPCS: 64493; 64494; J2250; J1030; J3010; J2795

== ENCOUNTER → 2022-10-03 | Outpatient (CLI) | payer MEDICARE ==
[2022-10-03 11:34] VITALS: BP 146/84; PULSE 72; RESP 18; TEMP 98.2
--- NOTE | 2022-10-03 15:37 | P.PAINPG ---
PQRS Measure Charge Sheet Comment: A 82 yr old female with a history of severe and chronic low back pain secondary to lumbar DDD and spondylosis with facet arthropathy without myelopathy presents today for evaluation s/p R facet block of the medial branches L2-L3, L3-L4 #2. Pt states she experienced 90 % pain relief x 1 day s/p procedure. Pain level is currently at 8 /10 in intensity, constant, localized in the mid R lumbar spine, crushing in character w shooting towards the R flank. Pain is provoked by twisting, standing, walking. Pain is alleviated with injections, PT in 2019, use of a cane for ambulatory assistance, home at stretching regimen as tolerated, repositioning and rest. Interventional pain procedures completed include R MBB L2-L4 x2 Patient is currently on denies Patient denies any side effects of the medication(s), denies excessive drowsiness or sleepiness, denies suicidal ideation and reports that the current pain medication is helping to control the pain and improve activities of daily living. Patient denies any motor or sensory deficits. Patient denies any fever or night sweats, denies any change in the bowel movements or urination. Physical Examination: -Constitutional: Cooperative. Not in acute distress . - Neurologic: Cranial nerve II to XII intact. No focal neurological deficits. - Psychatric: Alert & oriented x 3. Matching mood & appropriate affect. Judgment and insight intact. - Musculoskeletal: Cervical spine: Muscle bulk/ tone/ strength in the bilateral upper extremities normal Vertebral body tenderness to palpation over Spurling test positive Distraction test positive Facet loading test positive Thoracic spine Muscle bulk / tone/ strength in the bilateral paraspinal muscles normal Vertebral body tender to palpation over Facet loading test positive Lumbar spine: Motor bulk/ tone/ strength lower extremities , thigh and legs : 5/5 Deep tendon reflexes : Normal Knee Jerk. Normal Ankle Jerk . Vertebral body tenderness to palpation over Lumbar Facet Loading Test positive TTP over R L2-L3, L3-L4 facets Straight Leg Raise: positive at 30 degrees right side/ left side Gaenslen's Test positive Sacral spine : Severe tenderness over the Sacroiliac joint: right side / left side Range of motion: Flexion of the lumbar spine <60 degrees Range of motion: Extension of the lumbar spine <20 degrees Gaenslen's Test positive Jennifer test: positive right side / left side Thigh Thrust Test Sacral Thrust Test Assessment and plan: Chronic low back pain secondary to lumbar degenerative disc disease, spondylosis with facet arthropathy without myelopathy Recommendation of R RFA L2-L3, L3-L4. Pt exhibited sufficient and satisfactory pain relief with prior MBB procedures. Risks, benefits of procedure discussed and pt verbalized understanding. Admits to anticoagulant use or medical history of diabetes. Protocol for discontinuation/continuation of medications diya procedure discussed. All patient questions answered I have spent less than 30 minutes on patient care today. Dr Hilario was available by phone for the evaluation of this patient. The time was used to review the medical records including relevant urine studies and Prescription history (MAPs), review of the available imaging, evaluation and examination of the patient, coordination of care with the medical staff and if applicable referring physicians, as well as creation of the medical record - Pain Location Right Lower Back Non-Pharmacological Interventions: Chiropractic Treatment, Home Exercise, Inactivity, Physical Therapy, Sitting, Stretching Pharmacological Interventions: Block, Epidural PQRS Narrative: Smoking Status Never smoker Home Medications: Ambulatory Orders Ascorbic Acid [Vitamin C] 500 mg PO DAILY 09/23/19 Calcium Carbonate [Calcium] 600 mg PO DAILY 09/23/19 Cyanocobalamin [Vitamin B-12] 500 mcg PO DAILY 09/23/19 Diclofenac Sodium [Voltaren] 75 mg PO QAM 09/23/19 Glucosamine/Chondr Ibrahim A Sod [Osteo Bi-Flex Caplet] 1 tab PO BID 09/23/19 Pantoprazole [Protonix] 40 mg PO QAM 09/23/19 hydroCHLOROthiazide [Hydrodiuril] 25 mg PO DAILY 09/23/19 Losartan Potassium 50 mg PO QAM 08/06/21 Cholecalciferol (Vitamin D3) [Vitamin D3 (125 MCG = 5,000 IU)] 125 mcg PO DAILY 08/31/21 Rosuvastatin Calcium [Crestor] 40 mg PO HS 12/15/21 Diclofenac Sodium Gel [Voltaren Gel] 4 gm TOPICAL QID 30 Days #100 gm 01/03/22 Aspirin 81 mg PO DAILY 06/02/22 Controlled Substance Measures - Controlled Substance Measures Is patient prescribed a controlled substance at discharge?: No
== END ==
LOC: PNWHC3 10:58
PROVIDERS: ATTEND Specialist
DX: M47.816 Spondylosis without myelopathy or radiculopathy, lumbar region (principal); M51.36 Other intervertebral disc degeneration, lumbar region; G89.29 Other chronic pain; Z88.7 Allergy status to serum and vaccine; Z88.8 Allergy status to other drugs, medicaments and biological substances
CPT/HCPCS: 99211

== ENCOUNTER 2022-11-04 08:51 | Day surgery (SDC) | payer MEDICARE ==
[2022-11-01 15:54] VITALS: BMI 34.4
[2022-11-04 09:13] VITALS: RESP 16; TEMP 97
[2022-11-04] MEDS ORDERED: LACTATED RINGERS 1,000 ML IV ONE (09:20)
[2022-11-04] MEDS ORDERED: ROPIVACAINE 5 MG/ML 20 ML AMPULE ONE (10:23)
[2022-11-04] MEDS ORDERED: fentaNYL (PF) 50 MCG/ML 2 ML AMP ONE (10:23)
[2022-11-04] MEDS ORDERED: TRIAMCINOLONE ACETONIDE 40 MG/ML 1 ML VIAL ONE (10:23)
[2022-11-04] MEDS ORDERED: MIDAZOLAM 2 MG/2 ML VIAL ONE (10:23)
[2022-11-04] MEDS ORDERED: LACTATED RINGERS 1,000 ML IV SCH (10:30)
[2022-11-04] MEDS ORDERED: IV FLUID CONTINUATION 300 ML IV ONE (10:53)
--- NOTE | 2022-11-04 10:58 | P.PCN ---
Date of Procedure: 11/04/22 Description of Procedure: Procedure(s) Performed: PREOPERATIVE DIAGNOSIS: 1. Lumbar Spondylosis with Facet Arthropathy without myelopathy. 2-. Lumber degenerative disc disease POSTOPERATIVE DIAGNOSIS: 1. Lumbar Spondylosis with Facet Arthropathy without myelopathy. 2-. Lumber degenerative disc disease PROCEDURES: Right Radiofrequency thermocoagulation, L2-3 , L3-L4 (L1, L2, L3) medial branch, with fluoroscopic guidance SURGEON: Tanner Torres M.D. ANESTHESIA: Moderate sedation with intravenous versed 2 mg and fentaneyl 100 mcg and local infiltration with lidocaine 1% 6 ml Anesthesia Time: EBL: Minimal PROCEDURE INDICATION: The patient with low back pain secondary to lumbar facet arthropathy who had more than 80% relief of her pain with previous diagnostic lumbar medial branch block with Ropivacaine PROCEDURE DESCRIPTION / TECHNIQUE: The patient was seen and identified in the preoperative area. Risks, benefits, complications, including but not limited to risk of infection ,bleeding , allergic reactions to the medications and no complete pain releife , and alternatives were discussed with the patient, the patient agreed to proceed with the procedure and signed the consent. IV was started. Vital signs remained stable throughout the procedure. Patient was taken to the OR and time out was completed. The patient was placed in the prone position on the procedure table. The lumber area was prepped and draped in the usual sterile fashion. . Vital signs were closely monitored during the procedure .IV sedation was used during the procedure to decrease patients anxiety. Using AP and then oblique fluoroscopy, the ``eye of the Jose dog corresponding to the connection between the superior and transverse articular processes of Right L1, L2 , L3 were identified, marked, and localized with 1% lidocaine. Subsequently, a 18 [id number] radiofrequency cannula with a 10-mm active tip was advanced guided by fluoroscopy to each of the ``eyes of the Jose dog at Right L2 , L3, L4, and L5. Each site then underwent sensory testing at 50 Hz and 0 to 1 volt and motor testing at 2.5 Hz and 0 to 3 volt with local stimulation, but no radicular symptoms down the legs. After the thermocoagulation done , 1 ml of the block solution containing Kenalog 40 mg and 4 ml of ropivacaine 0.5% was injected at the Right L2-3 ,L3-4 levels after negative aspiration of CSF and blood and with no paresthesias. Cannulas were retracted while injecting lidocaine 1% until the needle is out.. At the end of the procedure, the skin was cleansed and bandages were applied. COMPLICATIONS: No acute complications. DISPOSITION / PLANS: The patient was placed in a supine position and transferred to the recovery area in a stable condition for observation and was discharged from the recovery room after meeting discharge criteria. Home discharge instructions given to the patient by the staff. The patient was reexamined prior to discharge. The patient will schedule a follow up in the clinic in 2-4 weeks.
--- NOTE | 2022-11-04 11:02 | FL ---
Fluoroscopy INDICATION: Pain FINDINGS: Fluoroscopy time: 36 seconds. Images obtained: 2. IMPRESSIONS: 1. Documentation of fluoroscopy.
[2022-11-04 11:09] VITALS: BP 121/82; PULSE 59
== END 2022-11-04 11:29 | disposition home or self-care (01) ==
LOC: ORPAIN 08:51
PROVIDERS: ATTEND Anesthesiology
DX: M51.36 Other intervertebral disc degeneration, lumbar region (principal); M47.816 Spondylosis without myelopathy or radiculopathy, lumbar region; Z88.1 Allergy status to other antibiotic agents; Z91.048 Other nonmedicinal substance allergy status; I10 Essential (primary) hypertension; E78.5 Hyperlipidemia, unspecified; K21.9 Gastro-esophageal reflux disease without esophagitis; Z79.899 Other long term (current) drug therapy
CPT/HCPCS: 64635; 64636; J2250; J3301; J2001; J3010; J2795

== ENCOUNTER → 2022-11-21 | Outpatient (CLI) | payer MEDICARE ==
[2022-11-21 09:29] VITALS: BP 129/81; PULSE 70; RESP 18; TEMP 97.5
--- NOTE | 2022-11-21 15:46 | P.PAINPG ---
PQRS Measure Charge Sheet Comment: A 82 yr old female with a history of severe and chronic low back pain x 2 yrs secondary to lumbar DDD and spondylosis with facet arthropathy without myelopathy presents today for evaluation s/p R RFA L2-L3, L3-L4 Pt states she experienced >50 % pain relief s/p procedure. Pain level is provoked at 4 /10 in intensity, constant, localized in the R lumbar spine, sore in character w shooting towards . Pain is provoked by walking for periods of 5 min or more. Pain is alleviated with PT years ago which was ineffective, chiropractic treatments were ineffective, sitting, heat, repositioning and rest. Interventional pain procedures completed include R RFA L1-L3, R RFA L3-L5, ESIs L1-L2 x2 Patient is currently on Diclofenac tabs Patient denies any side effects of the medication(s), denies excessive drowsiness or sleepiness, denies suicidal ideation and reports that the current pain medication is helping to control the pain and improve activities of daily living. Patient denies any motor or sensory deficits. Patient denies any fever or night sweats, denies any change in the bowel movements or urination. Physical Examination: -Constitutional: Cooperative. Not in acute distress . - Neurologic: Cranial nerve II to XII intact. No focal neurological deficits. - Psychatric: Alert & oriented x 3. Matching mood & appropriate affect. Judgment and insight intact. - Musculoskeletal: Cervical spine: Muscle bulk/ tone/ strength in the bilateral upper extremities normal Vertebral body tenderness to palpation over Spurling test positive Distraction test positive Facet loading test positive Thoracic spine Muscle bulk / tone/ strength in the bilateral paraspinal muscles normal Vertebral body tender to palpation over Facet loading test positive Lumbar spine: Motor bulk/ tone/ strength lower extremities , thigh and legs : 5/5 Deep tendon reflexes : Normal Knee Jerk. Normal Ankle Jerk . Vertebral body tenderness to palpation over Lumbar Facet Loading Test positive R paraspinal TTP over L2-S1 Straight Leg Raise: positive at 30 degrees right side/ left side Gaenslen's Test positive Sacral spine : Severe tenderness over the Sacroiliac joint: right side / left side Range of motion: Flexion of the lumbar spine <60 degrees Range of motion: Extension of the lumbar spine <20 degrees Gaenslen's Test positive Jennifer test: positive right side / left side Thigh Thrust Test Sacral Thrust Test Assessment and plan: Chronic low back pain secondary to lumbar degenerative disc disease, spondylosis with facet arthropathy without myelopathy Recommendation of R TPIs L1-S1. May need a series of injections for optimal pain relief. Risks, benefits of procedure discussed and pt verbalized understanding. Admits to anticoagulant use or medical history of diabetes. Protocol for discontinuation/ continuation of medications diya procedure discussed. All patient questions answered I have spent less than 30 minutes on patient care today. Dr Hilario was available by phone for the evaluation of this patient. The time was used to review the medical records including relevant urine studies and Prescription history (MAPs), review of the available imaging, evaluation and examination of the patient, coordination of care with the medical staff and if applicable referring physicians, as well as creation of the medical record - Pain Location Right Lower Back Non-Pharmacological Interventions: Heat, Inactivity, Sitting Pharmacological Interventions: PRN Medication PQRS Narrative: Smoking Status Never smoker Home Medications: Ambulatory Orders Ascorbic Acid [Vitamin C] 500 mg PO DAILY 09/23/19 Calcium Carbonate [Calcium] 600 mg PO DAILY 09/23/19 Cyanocobalamin [Vitamin B-12] 500 mcg PO DAILY 09/23/19 Diclofenac Sodium [Voltaren] 75 mg PO QAM 09/23/19 Glucosamine/Chondr Ibrahim A Sod [Osteo Bi-Flex Caplet] 1 tab PO BID 09/23/19 Pantoprazole [Protonix] 40 mg PO QAM 09/23/19 hydroCHLOROthiazide [Hydrodiuril] 25 mg PO DAILY 09/23/19 Losartan Potassium 50 mg PO QAM 08/06/21 Cholecalciferol (Vitamin D3) [Vitamin D3 (125 MCG = 5,000 IU)] 125 mcg PO DAILY 08/31/21 Rosuvastatin Calcium [Crestor] 40 mg PO HS 12/15/21 Diclofenac Sodium Gel [Voltaren Gel] 4 gm TOPICAL QID 30 Days #100 gm 01/03/22 Aspirin 81 mg PO DAILY 06/02/22 Controlled Substance Measures - Controlled Substance Measures Is patient prescribed a controlled substance at discharge?: No
== END ==
LOC: PNWHC3 09:05
PROVIDERS: ATTEND Specialist
DX: M47.816 Spondylosis without myelopathy or radiculopathy, lumbar region (principal); M51.36 Other intervertebral disc degeneration, lumbar region; G89.29 Other chronic pain; Z79.82 Long term (current) use of aspirin; Z88.1 Allergy status to other antibiotic agents; Z88.7 Allergy status to serum and vaccine
CPT/HCPCS: 99211

== ENCOUNTER 2023-01-31 11:06 | Day surgery (SDC) | payer MEDICARE ==
[2023-01-31 11:33] VITALS: RESP 16; TEMP 98.2
[2023-01-31] MEDS ORDERED: ROPIVACAINE 5 MG/ML 20 ML AMPULE ONE (12:02)
[2023-01-31] MEDS ORDERED: methylPREDNISolone ACETATE 40 MG/ML 1 ML VIAL ONE (12:02)
[2023-01-31] MEDS ORDERED: MIDAZOLAM 2 MG/2 ML VIAL ONE (12:02)
--- NOTE | 2023-01-31 12:13 | P.PCN ---
Date of Procedure: 01/31/23 Procedure(s) Performed: Procedure= trigger point injections lumbar paraspinal muscles Right side from L1 to S1, total 5 trigger point injected on the right side lumbar paraspinal muscles Preoperative diagnosis= 1-myofascial pain syndrome lumbar paraspinal muscles 2-lumbar degenerative disc disease 3-lumbar facet arthropathy Postoperative diagnosis=Same as preop Diagnosis . Complication = none Condition= stable Anesthesia= moderate sedation with Versed 1 mg. Sedation started at 1205, ended at 1208 Indication for the procedure= patient complaining of low back pain , examination was positive for multiple trigger point in the lumbar paraspinal muscles kevyn aterally and patient diagnosed with myofascial pain syndrome and is here to have trigger point injections Description of the procedure= procedure risk and benefits discussed with the patient, including but not limited, risk of infection and bleeding, and ALLERGIC reaction to the medication and not complete pain relief and patient agreed with the preceding patient taken to the operating room, placed in sitting position or standard monitors applied to the patient then after induction of anesthesia back prepped with chlorhexidine 3 times , then under sterile technique each of the trigger point that was marked in the preop holding area 5 on the right side lumbar paraspinal muscles , each one of them injected with the 2 mL of the mixture of ropivacaine 0.5% 10 ML mixed with 40 mg of Depo-Medrol and 2 mL of the mixture injected at each trigger point after negative aspiration, using 25- gauge needle, injection done after negative aspiration under was no paresthesia during the injection patient tolerated the procedure well without any complications and he will follow up in the pain clinic in a few weeks
[2023-01-31] MEDS ORDERED: IV FLUID CONTINUATION 1,000 ML IV ONE (12:28)
[2023-01-31 12:34] VITALS: BP 141/83; PULSE 72
== END 2023-01-31 13:13 | disposition home or self-care (01) ==
LOC: ORPAIN 11:06
PROVIDERS: ATTEND Specialist
DX: M79.18 Myalgia, other site (principal); M51.36 Other intervertebral disc degeneration, lumbar region; M47.816 Spondylosis without myelopathy or radiculopathy, lumbar region; Z88.8 Allergy status to other drugs, medicaments and biological substances
CPT/HCPCS: 20553; J2250; J1030; J2795

== ENCOUNTER → 2023-02-20 | Outpatient (CLI) | payer MEDICARE ==
--- NOTE | 2023-02-20 14:43 | XR ---
EXAMINATION TYPE: XR knee limited bilateral DATE OF EXAM: 02/20/2023 11:59 AM INDICATION: Patient age:Female; 82 years old; Reason for study: M17.9; COMPARISON: 09/30/2020 TECHNIQUE: The Bilateral knee(s) was examined in Frontal, lateral and oblique projections. FINDINGS: No evidence of any acute osseous pathology, soft tissue swelling, or joint effusion is no fredi. Bilateral osteophyte formation of the tibial plateau and femoral condyles and patella. Mild join t space narrowing most pronounced on the aspect bilaterally. These have progressed from prior. IMPRESSION: 1. No acute osseous pathology. 2. Moderate bilateral tricompartmental osteoarthritic changes. Thanks have progressed from 09/30/2020
== END | disposition home or self-care (01) ==
LOC: RADXRMAIN 11:42
PROVIDERS: ATTEND Physician Assistant Medical
DX: M17.12 Unilateral primary osteoarthritis, left knee (principal)

== ENCOUNTER → 2023-02-20 | Outpatient (CLI) | payer MEDICARE ==
[2023-02-20 13:28] VITALS: BP 142/78; PULSE 61; RESP 18; TEMP 97.4
--- NOTE | 2023-02-20 15:30 | P.PAINPG ---
PQRS Measure Charge Sheet Comment: A 82 yr old female with a history of severe and chronic LBP x yrs secondary to lumbar DDD and spondylosis with facet arthropathy without myelopathy presents today for evaluation s/ R TPIs Lumbar spine. Pt states she experienced 85 % pain relief x 3 days s/p procedure. Pain level is provoked at 7/10 in int ensity, constant, localized in the center and R lumbar spine, dull in character w shooting towards the R side of the back. Pain is provoked by standing. Pain is alleviated with PT in 2020, chiropractic treatments for years which she ended in 2020 due to no relief, meds, using a cane for ambulatory assistance, repositioning and rest. Pt also complains of BL knee pain, R>L achy and localized in the peripatellar joints which is provoked w weight bearing activity. She's had work done to her knee but unsure of what. Interventional pain procedures completed include R Lumbar TPIs, L1-L2 GAIL x1, R TFESI L1-L2 x1, R RFA L2-3, L3-4. Patient is currently on Diclofenac tabs Patient denies any side effects of the medication(s), denies excessive drowsiness or sleepiness, denies suicidal ideation and reports that the current pain medication is helping to control the pain and improve activities of daily living. Patient denies any motor or sensory deficits. Patient denies any fever or night sweats, denies any change in the bowel movements or urination. Physical Examination: -Constitutional: Cooperative. Not in acute distress . - Neurologic: Cranial nerve II to XII intact. No focal neurological de ficits. - Psychatric: Alert & oriented x 3. Matching mood & appropriate affect. Judgment and insight intact. - Musculoskeletal: Cervical spine: Muscle bulk/ tone/ strength in the bilateral upper extremities normal Vertebral body tenderness to palpation over Spurling test positive Distraction test positive Facet loading test positive TTP Thoracic spine Muscle bulk / tone/ strength in the bilateral paraspinal muscles normal Vertebral body tender to palpation over Facet loading test positive TTP Lumbar spine: Motor bulk/ tone/ strength lower extremities , thigh and legs : 5/5 Deep tendon reflexes : Normal Knee Jerk. Normal Ankle Jerk . Vertebral body tenderness to palpation over L2 Lumbar Facet Loading Test positive Straight Leg Raise: positive at 30 degrees right side/ left side Gaenslen's Test positive Sacral spine : Severe tenderness over the Sacroiliac joint: right side / left side Range of motion: Flexion of the lumbar spine <60 degrees Range of motion: Extension of the lumbar spine <20 degrees Gaenslen's Test positive right side / left side Jennifer test: positive right side / left side Thigh Thrust Test positive right side / left side Sacral Thrust Test positive right side / left side Assessment and plan: Chronic LBP secondary to lumbar DDD, spondylosis with facet arthropathy without myelopathy Recommendation of R L2-L3 paramedian GAIL. May need a series fo injections for optimal pain relief. Risks, benefits of procedure discussed and pt verbalized understanding. Admits to anticoagulant use or medical history of diabetes. Protocol for discontinuation/ continuation of medications diya procedure discussed. All questions answered. Chronic and current use of high-risk medication (Opioids). The patient was counseled about risk of opioid use, psychological risk a ssociated with opioids and was orally counseled to not overuse , divert or sell medications. Pt is to store medication in a safe location. The patient is counseled against driving while using narcotic medications and also not to use alcohol or any illicit recreational drugs. Patient verbalized understanding that the lack of compliance will result in failure to renew narcotic prescription(s) as well as possible discharge from the clinic Diagnoses, prognosis and treatment options including but not limited to physical therapy, surgical interventions, interventional therapies and medication management including narcotics and adjuvant medication were discussed. All patient questions answered MAPS reviewed and it was appropriate. Prescription refill for I have spent less than 30 minutes on patient care today. Dr Hilario was available by phone for the evaluation of this patient. The time was used to review the medical records including relevant urine studies and Prescription history (MAPs), review of the available imaging, evaluation and examination of the patient, coordination of care with the medical staff and if applicable referring physicians, as well as creation of the medical record PQRS Narrative: Smoking Status Never smoker Hx Alcohol Use (MH) Yes: 1 DRINK PER DAY Home Medications: Ambulatory Orders Ascorbic Acid [Vitamin C] 500 mg PO DAILY 09/23/19 Calcium Carbonate [Calcium] 600 mg PO DAILY 09/23/19 Cyanocobalamin [Vitamin B-12] 500 mcg PO DAILY 09/23/19 Diclofenac Sodium [Voltaren] 75 mg PO QAM 09/23/19 Glucosamine/Chondr Ibrahim A Sod [Osteo Bi-Flex Caplet] 1 tab PO BID 09/23/19 Pantoprazole [Protonix] 40 mg PO QAM 09/23/19 hydroCHLOROthiazide [Hydrodiuril] 25 mg PO DAILY 09/23/19 Losartan Potassium 50 mg PO QAM 08/06/21 Cholecalciferol (Vitamin D3) [Vitamin D3 (125 MCG = 5,000 IU)] 125 mcg PO DAILY 08/31/21 Rosuvastatin Calcium [Crestor] 40 mg PO HS 12/15/21 Diclofenac Sodium Gel [Voltaren Gel] 4 gm TOPICAL QID 30 Days #100 gm 01/03/22 Aspirin 81 mg PO DAILY 06/02/22 Controlled Substance Measures - Controlled Substance Measures Is patient prescribed a controlled substance at discharge?: No
== END ==
LOC: PNWHC3 10:57
PROVIDERS: ATTEND Specialist
DX: M51.36 Other intervertebral disc degeneration, lumbar region (principal); M17.9 Osteoarthritis of knee, unspecified; G89.29 Other chronic pain; M47.816 Spondylosis without myelopathy or radiculopathy, lumbar region; Z79.891 Long term (current) use of opiate analgesic; Z88.7 Allergy status to serum and vaccine; Z88.8 Allergy status to other drugs, medicaments and biological substances
CPT/HCPCS: 99211

== ENCOUNTER 2023-03-16 11:40 | Day surgery (SDC) | payer MEDICARE ==
[2023-03-16 12:10] VITALS: TEMP 97.1
[2023-03-16] MEDS ORDERED: IOPAMIDOL M200 10 ML VIAL ONE (13:25)
[2023-03-16] MEDS ORDERED: fentaNYL (PF) 50 MCG/ML 2 ML AMP ONE (13:25)
[2023-03-16] MEDS ORDERED: MIDAZOLAM 2 MG/2 ML VIAL ONE (13:25)
[2023-03-16] MEDS ORDERED: methylPREDNISolone ACETATE 40 MG/ML 1 ML VIAL ONE (13:25)
--- NOTE | 2023-03-16 13:37 | P.PCN ---
Date of Procedure: 03/16/23 Procedure(s) Performed: PREOPERATIVE DIAGNOSIS: 1- Lumbar Degenerative Disc Diseases 2-Lumbar spondylosis with Facet arthropathy without myelopathy. 3-lumbar radiculopathy POSTOPERATIVE DIAGNOSIS: 1-lumbar degenerative disc disease. 2-lumbar spondylosis with facet arthropathy without myelopathy. 3-lumbar radiculopathy PROCEDURE 1. Lumbar epidural steroid injection under fluoroscopic guidance at the L2-3 level. (Fluoroscopy imaging was available in radiology department) 2. Lumbar epidurogram. ANESTHESIA: moderate sedation with intravenous Versed 1 mg ,and fentanyle 50 Mcg Sedation start time : 1325 Sedation end time : 1334 EBL: Minimal PROCEDURE INDICATION: The patient with low back pain and radiculitis symptoms unresponsive to conservative treatment. Fluoroscopy was used to optimize visualization of the needle placement and to maximize safety. PROCEDURE DESCRIPTION / TECHNIQUE: The patient was seen and identified in the preoperative area. Risks, benefits, complications including but not limited to infections ,bleeding ,allergic reaction to the medications ,nerve damage and not complete pain releife , and alternatives were discussed with the patient. The patient agreed to proceed with the procedure and signed the consent. IV was started, and vital signs were stable. Patient was taken to the OR and time out was completed. The patient was placed in the prone position on procedure table and a pillow was placed under the abdomen to reduce lumbar lordosis. The lumbosacral area was prepped and draped in the usual sterile fashion.ere closely monitored during the procedure. Conscious sedation was used during the procedure to decrease patients anxiety. Vital signs was monitered during the entire procedure. Using anterior-posterior fluoroscopy, the L2-3 interlaminar space was identified and the skin over this site was marked and then infiltrated with 1% lidocaine subcutaneously. Subsequently, a 20-gauge Tuohy epidural needle was inserted and advanced toward the epidural space using the ``Loss of resistance technique and guided by AP and lateral fluoroscopy. The correct needle position in the epidural space was verified with the injection of 2 mL of the water soluble cont rast dye Isovue 200 contrast and observing an excellent epidurogram with the epidural spread of the dye, after negative aspiration for blood and CSF and in the absence of paresthesias. Again after negative aspiration, a 6 ml mixture containing 40 mg of Depo-medrol ( Preservetive Free ), and 2 ml of preservative free Normal Saline, and 2 ml of preservative free lidocaine 1% solution was injected and a washout of epidurogram was seen. Needle was withdrawn intact, skin was cleansed, and bandages were applied. COMPLICATIONS: None DISPOSITION / PLANS: The patient was placed in a supine position and transferred to the recovery area in a stable condition for observation. There was no evidence of lower extremity motor or sensory deficit after the procedure. Patient was discharged from the recovery room after meeting discharge criteria. Home discharge instructions were given to the patient by the staff. The patient was reexamined prior to discharge. The patient will schedule a follow up in the clinic in 2-4 weeks.
[2023-03-16] MEDS ORDERED: LACTATED RINGERS 1,000 ML IV ONE (13:38)
[2023-03-16 13:45] VITALS: RESP 18
[2023-03-16 13:58] VITALS: BP 141/55; PULSE 63
--- NOTE | 2023-03-16 15:59 | FL ---
Fluoroscopy INDICATION: Pain FINDINGS: Fluoroscopy time: 3 seconds. Total dose area product (DAP) in uGy*m?, mGy*cm? (or similar): 0.85404 Images obtained: 2. IMPRESSIONS: 1. Documentation of fluoroscopy.
== END 2023-03-16 14:13 | disposition home or self-care (01) ==
LOC: ORPAIN 11:40
PROVIDERS: ATTEND Specialist
DX: M51.16 Intervertebral disc disorders with radiculopathy, lumbar region (principal); M47.26 Other spondylosis with radiculopathy, lumbar region; Z88.7 Allergy status to serum and vaccine
CPT/HCPCS: 62323; J2250; J1030; J3010; Q9966

== ENCOUNTER → 2023-04-06 | Outpatient (CLI) | payer MEDICARE ==
[2023-04-06 10:12] VITALS: BP 121/77; PULSE 69; RESP 7
--- NOTE | 2023-04-06 14:30 | P.PAINPG ---
PQRS Measure Charge Sheet Comment: A 82 yr old female with a history of severe and chronic LBP secondary to lumbar DDD and spondylosis with facet arthropathy without myelopathy presents today for evaluation s/p GAIL L2-L3. Pt states she experienced 50 % pain relief x 2 days s/p procedure. Pt also has had an RFA of the R L2-L3, L3-L4 where she admits she experienced 60% pain relief x 4 mo s/p procedure. Pain level is provoked at 7/10 in intensity, constant, localized in the center lumbar spine, heavy, tight in character without shooting pain. Pain is provoked by standing/ walking for periods of 10 min or more. Pain is alleviated with PT in 2020, chiropractic treatments Q2Mo for yrs which ended in Fall 2021 because they were ineffective, use of a cane for ambulatory assistance, topical, sitting, reclining and rest. Interventional pain procedures completed include GAIL L2-L3, R RFA L2-L4, R TFESI L3-L4 Patient is currently on Diclofenac tabs, ASA Patient denies any side effects of the medication(s), denies excessive drowsiness or sleepiness, denies suicidal ideation and reports that the current pain medication is helping to control the pain and improve activities of daily living. Patient denies any motor or sensory deficits. Patient denies any fever or night sweats, denies any change in the bowel movements or urination. Physical Examination: -Constitutional: Cooperative. Not in acute distress . - Neurologic: Cranial nerve II to XII intact. No focal neurological deficits. - Psychatric: Alert & oriented x 3. Matching mood & appropriate affect. Judgment and insight intact. - Musculoskeletal: Cervical spine: Muscle bulk/ tone/ strength in the bilateral upper extremities normal Vertebral body tenderness to palpation over Spurling test positive Distraction test positive Facet loading test positive TTP Thoracic spine Muscle bulk / tone/ strength in the bilateral paraspinal muscles normal Vertebral body tender to palpation over Facet loading test positive TTP Lumbar spine: Motor bulk/ tone/ strength lower extremities , thigh and legs : 5/5 Deep tendon reflexes : Normal Knee Jerk. Normal Ankle Jerk . Vertebral body tenderness to palpation over Romero Test positive Lumbar Facet Loading Test positive over R L2-L3, L3-L4 Straight Leg Raise: positive at 30 degrees right side/ left side Gaenslen's Test positive Sacral spine : Severe tenderness over the Sacroiliac joint: right side / left side Range of motion: Flexion of the lumbar spine <60 degrees Range of motion: Extension of the lumbar spine <20 degrees Gaenslen's Test positive right side / left side Jennifer test: positive right side / left side Thigh Thrust Test positive right side / left side Sacral Thrust Test positive right side / left side Assessment and plan: Chronic LBP secondary to lumbar DDD, spondylosis with facet arthropathy without myelopathy Recommendation of R RFA L2-L3, L3-L4. Pt exhibited sufficient and substantial pain relief w prior RFA procedure from Aug 2022. Risks, benefits of procedure discussed and pt verbalized understanding. Admits to anticoagulant use or medical history of diabetes. Protocol for discontinuation/ continuation of medications diya procedure discussed. Minimal anesthesia provided, if clinically indicated, consisting of Versed and Fentanyl. All questions answered. I have spent less than 30 minutes on patient care today. Dr Hilario was available by phone for the evaluation of this patient. The time was used to review the medical records including relevant urine studies and Prescription history (MAPs), review of the available imaging, evaluation and examination of the patient, coordination of care with the medical staff and if applicable referring physicians, as well as creation of the medical record PQRS Narrative: Smoking Status Never smoker Hx Alcohol Use (MH) Yes: 1 DRINK PER DAY Home Medications: Ambulatory Orders Ascorbic Acid [Vitamin C] 500 mg PO DAILY 09/23/19 Calcium Carbonate [Calcium] 600 mg PO DAILY 09/23/19 Cyanocobalamin [Vitamin B-12] 500 mcg PO DAILY 09/23/19 Diclofenac Sodium [Voltaren] 75 mg PO QAM 09/23/19 Glucosamine/Chondr Ibrahim A Sod [Osteo Bi-Flex Caplet] 1 tab PO BID 09/23/19 Pantoprazole [Protonix] 40 mg PO QAM 09/23/19 hydroCHLOROthiazide [Hydrodiuril] 25 mg PO DAILY 09/23/19 Losartan Potassium 50 mg PO QAM 08/06/21 Cholecalciferol (Vitamin D3) [Vitamin D3 (125 MCG = 5,000 IU)] 125 mcg PO DAILY 08/31/21 Rosuvastatin Calcium [Crestor] 40 mg PO HS 12/15/21 Diclofenac Sodium Gel [Voltaren Gel] 4 gm TOPICAL QID 30 Days #100 gm 01/03/22 Aspirin 81 mg PO DAILY 06/02/22 Controlled Substance Measures - Controlled Substance Measures Is patient prescribed a controlled substance at discharge?: No
== END ==
LOC: PNWHC3 09:39
PROVIDERS: ATTEND Specialist
DX: M51.36 Other intervertebral disc degeneration, lumbar region (principal); M47.816 Spondylosis without myelopathy or radiculopathy, lumbar region; G89.29 Other chronic pain; Z79.82 Long term (current) use of aspirin; Z88.7 Allergy status to serum and vaccine; Z88.8 Allergy status to other drugs, medicaments and biological substances
CPT/HCPCS: 99211

== ENCOUNTER → 2023-08-07 | Outpatient (CLI) | payer MEDICARE ==
--- NOTE | 2023-08-07 09:24 | XR ---
EXAMINATION TYPE: XR abdomen 2V DATE OF EXAM: 08/07/2023 COMPARISON: NONE HISTORY: Generalized abdominal pain, constipation TECHNIQUE: Upright and supine views of the abdomen are obtained. FINDINGS: Small bowel demonstrates no evidence for dilatation or air fluid levels. Gas and fecal material is seen in non-distended colon. No convincing evidence for pneumoperitoneum. No unusual calcifications. Atherosclerotic calcification of the aorta. The lung bases are clear. The osseous structures are intact. Levoscoliotic curvature of the thoracolumbar spine. IMPRESSION: Overall nonobstructive bowel gas pattern. Mild colonic stool burden.
== END | disposition home or self-care (01) ==
LOC: RADXRYALE 08:58
PROVIDERS: ATTEND Physician Assistant Medical
DX: K59.00 Constipation, unspecified (principal)
CPT/HCPCS: 74019

== ENCOUNTER 2023-08-16 13:00 | Inpatient (IN) | payer MEDICARE ==
--- NOTE | 2023-08-16 13:49 | ED ---
Abdominal Pain HPI - General Source: patient, RN notes reviewed Mode of arrival: ambulatory Limitations: no limitations <Jovanni Acosta - Last Filed: 08/16/23 13:47> <Jose Tyler - Last Filed: 08/29/23 07:00> - General Chief Complaint: Abdominal Pain Stated Complaint: constipation,weakness,queasy Time Seen by Provider: 08/16/23 13:47 - History of Present Illness Initial Comments: 83-year-old female presents emergency department for evaluation abdominal pain, constipation. Patient scheduled for a CAT scan today but states symptoms worsen. She has tried some ogum-tuc-jyibcie medications juices, teas, no relief of her constipation. (Jovanni Acosta) - Related Data Home Medications Medication Instructions Recorded Confirmed Glucosamine/Chondr Ibrahim A Sod [Osteo 2 tab PO DAILY 09/23/19 08/16/23 Bi-Flex Caplet] Pantoprazole [Protonix] 40 mg PO QAM 09/23/19 08/16/23 Cholecalciferol (Vitamin D3) 125 mcg PO DAILY 08/31/21 08/16/23 [Vitamin D3 (125 MCG = 5,000 IU)] Rosuvastatin Calcium [Crestor] 40 mg PO HS 12/15/21 08/16/23 Aspirin 81 mg PO DAILY 06/02/22 08/16/23 Ascorbic Acid [Vitamin C] 1,000 mg PO DAILY 08/16/23 08/16/23 Calcium Carbonate/Vitamin D3 2 tab PO DAILY 08/16/23 08/16/23 [Calcium 600-D3 20 mcg (800 Unit)] Cyanocobalamin (Vitamin B-12) 1,000 mcg PO DAILY 08/16/23 08/16/23 [Vitamin B-12] Multivitamins, Thera [Multivitamin 1 tab PO DAILY 08/16/23 08/16/23 (formulary)] Previous Rx's Medication Instructions Recorded cefTRIAXone [Rocephin] 2 gm IVPB Q24HR each 08/22/23 metroNIDAZOLE [Flagyl] 500 mg PO TID #42 tab 08/22/23 Allergies Allergy/AdvReac Type Severity Reaction Status Date / Time montelukast [From Singulair] Allergy Rash/Hives Verified 08/16/23 18:12 pneumococcal vaccine Allergy arm Verified 08/16/23 18:12 swelled up & Rash Review of Systems ROS Other: All systems not noted in ROS Statement are negative. <KarlaJovanni - Last Filed: 08/16/23 13:47> ROS Other: All systems not noted in ROS Statement are negative. <Jose Tyler - Last Filed: 08/29/23 07:00> ROS Statement: Those systems with pertinent positive or pertinent negative responses have been documented in the HPI. Past Medical History Past Medical History: GERD/Reflux, Hearing Disorder / Deafness, Hyperlipidemia, Hypertension, Osteoarthritis (OA) Additional Past Medical History / Comment(s): Lower back pain. Hx COVID 07/2021. Bilateral hearing aid use. History of Any Multi-Drug Resistant Organisms: None Reported Past Surgical History: Joint Replacement, Orthopedic Surgery, Tubal Ligation Additional Past Surgical History / Comment(s): ORIF left ankle, left ankle replacement, polyp removed from vocal cords, pain clinic procedure, right shoulder rotator cuff repair. Past Anesthesia/Blood Transfusion Reactions: No Reported Reaction Past Psychological History: No Psychological Hx Reported Smoking Status: Never smoker Past Alcohol Use History: Daily Past Drug Use History: None Reported - Past Family History Father Family Medical History: Cancer Mother Additional Family Medical History / Comment(s): Aneurysm. <KarlaJovanni Appiah - Last Filed: 08/16/23 13:47> General Exam Limitations: no limitations <KarlaJovanni Appiah - Last Filed: 08/16/23 13:47> General appearance: alert, in no apparent distress Head exam: Present: atraumatic, normocephalic Eye exam: Present: normal appearance. Absent: scleral icterus, conjunctival injection Neck exam: Present: normal inspection Respiratory exam: Present: normal lung sounds bilaterally. Absent: respiratory distress, wheezes, rales, rhonchi, stridor, accessory muscle use Cardiovascular Exam: Present: regular rate, normal rhythm, normal heart sounds. Absent: systolic murmur, diastolic murmur, rubs, gallop GI/Abdominal exam: Present: soft, tenderness. Absent: distended, guarding, rebound, rigid Extremities exam: Present: normal inspection, normal capillary refill. Absent: pedal edema, calf tenderness Back exam: Present: normal inspection. Absent: CVA tenderness (R), CVA tenderness (L) Neurological exam: Present: alert Skin exam: Present: warm, dry, intact, normal color. Absent: rash <Jose Tyler - Last Filed: 08/29/23 07:00> - General Exam Comments Initial Comments: Visual Physical Exam Vital signs reviewed General: Well-appearing, nontoxic, no acute distress. Head: Normocephalic, atraumatic Eyes: PERRLA, EOMI ENT: Airway patent Chest: Nonlabored breathing Skin: No visual rash, normal skin tone Neuro: Alert and oriented 3 Musculoskeletal: No gross abnormalities (Jovanni Acosta) Course Vital Signs 08/16/23 08/16/23 08/16/23 13:09 17:13 19:35 Temperature 97.6 F 98.9 F Pulse Rate 89 86 77 Respiratory 18 18 16 Rate Blood Pressure 130/77 114/65 120/60 O2 Sat by Pulse 94 L 98 Oximetry Medical Decision Making <Jovanni Acosta - Last Filed: 08/16/23 13:47> - Lab Data Result diagrams: 08/21/23 05:35 08/21/23 05:35 <Jose Tyler - Last Filed: 08/29/23 07:00> - Medical Decision Making I performed the quick note portion of this chart signed Jovanni Acosta PA-C (Jovanni Acosta) The patient had computed tomography scan of abdomen and pelvis which does appear to show pelvic abscess adjacent colon. Patient will be admitted to have surgical consult. Was pt. sent in by a medical professional or institution ([facility], [facility], urgent care, hospital, or jail...) When possible be specific @ -[No] Did you speak to anyone other than the patient for history (EMS, parent, family, police, friend...)? What history was obtained from this source @ -[No] Did you review nursing and triage notes (agree or disagree)? Why? @ -[I reviewed and agree with nursing and triage notes] Were old charts reviewed (outside hosp., previous admission, EMS record, old EKG, old radiological studies, urgent care reports/EKG's, jail records)? Report findings @ -[No old charts were reviewed] Differential Diagnosis (chest pain, altered mental status, abdominal pain women, abdominal pain men, vaginal bleeding, weakness, fever, dyspnea, syncope, headache, dizziness, GI bleed, back pain, seizure, CVA, palpatations, mental health, musculoskeletal)? @ -[Differential Abdominal Pain Women: Appendicitis, Cholecystitis, diverticulosis, ischemic bowel, pancreatitis, hepatitis, UTI, gastroenteritis, AAA, incarcerated hernia, bowel obstruction, constipation, inflammatory bowel, hepatitis, peptic ulcer disease, splenic inf arction, perforated viscus, vulvitis, ovarian torsion, PID, kidney stone, placenta abruption, this is not meant to be an all-inclusive list EKG interpreted by me (3pts min.). @ -[As above] X-rays interpreted by me (1pt min.). @ -[None done] CT interpreted by me (1pt min.). @ -[Interpreted as above U/S interpreted by me (1pt. min.). @ -[None done] What testing was considered but not performed or refused? (CT, X-rays, U/S, labs)? Why? @ -[None] What meds were considered but not given or refused? Why? @ -[None] Did you discuss the management of the patient with other professionals (professionals i.e. , PA, LACING CUTTER, lab, RT, psych nurse, addiction social worker, spud sorter, teacher, chief executive officer, director of casework)? Give summary @ -[No] Was smoking cessation discussed for >3mins.? @ -[No] Was critical care preformed (if so, how long)? @ -[No] Were there social determinants of health that impacted care today? How? (Homelessness, low income, unemployed, alcoholism, drug addiction, transportation, low edu. Level, literacy, decrease access to med. care, usp, rehab)? @ -[No] Was there de-escalation of care discussed even if they declined (Discuss DNR or withdrawal of care, Hospice)? DNR status @ -[No] What co-morbidities impacted this encounter? (DM, HTN, Smoking, COPD, CAD, Cancer, CVA, ARF, Chemo, Hep., AIDS, mental health diagnosis, sleep apnea, morbid obesity)? @ -[None] Was patient admitted / discharged? Hospital course, mention meds given and route, prescriptions, significant lab abnormalities, going to OR and other perti nent info. @ -[Patient be admitted to have surgical consultation, and IV antibiotics are started, Undiagnosed new problem with uncertain prognosis? @ -[No] Drug Therapy requiring intensive monitoring for toxicity (Heparin, Nitro, Insulin, Cardizem)? @ -[No] Were any procedures done? @ -[No] Diagnosis/symptom? @ -[Acute intra-abdominal abscess Acute, or Chronic, or Acute on Chronic? @ -[Acute Uncomplicated (without systemic symptoms) or Complicated (systemic symptoms)? @ -[Uncomplicated Side effects of treatment? @ -[No] Exacerbation, Progression, or Severe Exacerbation? @ -[No] Poses a threat to life or bodily function? How? (Chest pain, USA, AR, pneumonia, PE, COPD, DKA, ARF, appy, cholecystitis, CVA, Diverticulitis, Homicidal, Suicidal, threat to staff... and all critical care pts) @ -[Yes, intra-abdominal infections may worsen to sepsis, peritonitis, (Jose Tyler) - Lab Data Lab Results 08/16/23 08/16/23 08/16/23 Range/Units 14:13 14:13 14:13 WBC 22.9 H (3.8-10.6) k/uL RBC 4.24 (3.80-5.40) m/uL Hgb 13.5 (11.4-16.0) gm/dL Hct 41.1 (34.0-46.0) % MCV 96.9 (80.0-100.0) fL MCH 31.8 (25.0-35.0) pg MCHC 32.8 (31.0-37.0) g/dL RDW 12.5 (11.5-15.5) % Plt Count 454 H (150-450) k/uL MPV 8.4 Neutrophils % 91 % Lymphocytes % 5 % Monocytes % 3 % Eosinophils % 0 % Basophils % 0 % Neutrophils # 20.8 H (1.3-7.7) k/uL Lymphocytes # 1.2 (1.0-4.8) k/uL Monocytes # 0.6 (0-1.0) k/uL Eosinophils # 0.1 (0-0.7) k/uL Basophils # 0.0 (0-0.2) k/uL Sodium 139 (137-145) mmol/L Potassium 5.1 (3.5-5.1) mmol/L Chloride 99 (98-107) mmol/L Carbon Dioxide 26 (22-30) mmol/L Anion Gap 14 mmol/L BUN 27 H (7-17) mg/dL Creatinine 1.16 H (0.52-1.04) mg/dL Est GFR (CKD-EPI)AfAm 51 (>60 ml/min/1.73 sqM) Est GFR (CKD-EPI)NonAf 44 (>60 ml/min/1.73 sqM) Glucose 136 H (74-99) mg/dL Plasma Lactic Acid Roderick 1.9 (0.7-2.0) mmol/L Calcium 9.4 (8.4-10.2) mg/dL Total Bilirubin 1.1 (0.2-1.3) mg/dL AST 35 (14-36) U/L ALT 18 (4-34) U/L Alkaline Phosphatase 50 (38-126) U/L Total Protein 7.8 (6.3-8.2) g/dL Albumin 3.6 (3.5-5.0) g/dL Lipase 79 (23-300) U/L Urine Color Urine Appearance (Clear) Urine pH (5.0-8.0) Ur Specific Economy (1.001-1.035) Urine Protein (Negative) Urine Glucose (UA) (Negative) Urine Ketones (Negative) Urine Blood (Negative) Urine Nitrite (Negative) Urine Bilirubin (Negative) Urine Urobilinogen (<2.0) mg/dL Ur Leukocyte Esterase (Negative) Urine RBC (0-5) /hpf Urine WBC (0-5) /hpf Ur Squamous Epith Cells (0-4) /hpf 08/16/23 Range/Units 16:47 WBC (3.8-10.6) k/uL RBC (3.80-5.40) m/uL Hgb (11.4-16.0) gm/dL Hct (34.0-46.0) % MCV (80.0-100.0) fL MCH (25.0-35.0) pg MCHC (31.0-37.0) g/dL RDW (11.5-15.5) % Plt Count (150-450) k/uL MPV Neutrophils % % Lymphocytes % % Monocytes % % Eosinophils % % Basophils % % Neutrophils # (1.3-7.7) k/uL Lymphocytes # (1.0-4.8) k/uL Monocytes # (0-1.0) k/uL Eosinophils # (0-0.7) k/uL Basophils # (0-0.2) k/uL Sodium (137-145) mmol/L Potassium (3.5-5.1) mmol/L Chloride (98-107) mmol/L Carbon Dioxide (22-30) mmol/L Anion Gap mmol/L BUN (7-17) mg/dL Creatinine (0.52-1.04) mg/dL Est GFR (CKD-EPI)AfAm (>60 ml/min/1.73 sqM) Est GFR (CKD-EPI)NonAf (>60 ml/min/1.73 sqM) Glucose (74-99) mg/dL Plasma Lactic Acid Roderick (0.7-2.0) mmol/L Calcium (8.4-10.2) mg/dL Total Bilirubin (0.2-1.3) mg/dL AST (14-36) U/L ALT (4-34) U/L Alkaline Phosphatase (38-126) U/L Total Protein (6.3-8.2) g/dL Albumin (3.5-5.0) g/dL Lipase (23-300) U/L Urine Color Yellow Urine Appearance Clear (Clear) Urine pH 6.5 (5.0-8.0) Ur Specific Economy 1.034 (1.001-1.035) Urine Protein 2+ H (Negative) Urine Glucose (UA) Negative (Negative) Urine Ketones 1+ H (Negative) Urine Blood Negative (Negative) Urine Nitrite Negative (Negative) Urine Bilirubin Negative (Negative) Urine Urobilinogen <2.0 (<2.0) mg/dL Ur Leukocyte Esterase Small H (Negative) Urine RBC <1 (0-5) /hpf Urine WBC 28 H (0-5) /hpf Ur Squamous Epith Cells 1 (0-4) /hpf Disposition <Jovanni Acosta - Last Filed: 08/16/23 13:47> Is patient prescribed a controlled substance at d/c from ED?: No <Jose Tyler - Last Filed: 08/29/23 07:00> Clinical Impression: Abdominal pain, Pelvic abscess Disposition: ADMITTED IP TO THIS HOSP Condition: Stable
[2023-08-16 14:23] LABS: Basophils % (A) 0 %; Eosinophils # (A) 0.1 k/uL (0-0.7); Eosinophils % (A) 0 %; HCT 41.1 % (34.0-46.0); HGB 13.5 gm/dL (11.4-16.0); Lymphocytes # (A) 1.2 k/uL (1.0-4.8); Lymphocytes % (A) 5 %; MCH 31.8 pg (25.0-35.0); MCHC 32.8 g/dL (31.0-37.0); MCV 96.9 fL (80.0-100.0); Mean Platelet Volume 8.4; Monocytes # (A) 0.6 k/uL (0-1.0); Monocytes % (A) 3 %; Neutrophils # (A) 20.8 k/uL (1.3-7.7); Neutrophils % (A) 91 %; Platelet Count 454 k/uL (150-450); RBC 4.24 m/uL (3.80-5.40); RDW 12.5 % (11.5-15.5); WBC 22.9 k/uL (3.8-10.6)
[2023-08-16 14:40] LABS: ALT 18 U/L (4-34); AST 35 U/L (14-36); African American GFR (CKD) 51 (>60 ml/min/1.73 sqM); Albumin 3.6 g/dL (3.5-5.0); Alkaline Phosphatase 50 U/L (38-126); Blood Urea Nitrogen 27 mg/dL (7-17); Calcium 9.4 mg/dL (8.4-10.2); Carbon Dioxide 26 mmol/L (22-30); Glucose 136 mg/dL (74-99); Lipase 79 U/L (23-300); Non-African American GFR(CKD) 44 (>60 ml/min/1.73 sqM); Total Bilirubin 1.1 mg/dL (0.2-1.3); Total Protein 7.8 g/dL (6.3-8.2)
[2023-08-16 15:02] LABS: Anion Gap 14 mmol/L; Chloride 99 mmol/L (98-107); Sodium 139 mmol/L (137-145)
[2023-08-16 15:03] LABS: Potassium 5.1 mmol/L (3.5-5.1)
--- NOTE | 2023-08-16 16:58 | CT ---
EXAMINATION TYPE: CT abdomen pelvis w con CT DLP: 1210.1 mGycm, Automated exposure control for dose reduction was used. DATE OF EXAM: 08/16/2023 4:30 PM COMPARISON: None CLINICAL INDICATION:Female, 83 years old with history of abdominal pain; abd pain TECHNIQUE: Axial CT of the abdomen and pelvis. Sagittal and coronal reformats were created on a [employer] workstation. Contrast used:80 mL of Isovue 300 with IV Contrast, (none if empty) Oral contrast used: without Oral Contrast (none if empty) FINDINGS: LOWER CHEST: The heart is enlarged for size. Mitral valve annular cusp patient's. ABDOMEN LIVER: Unremarkable GALLBLADDER AND BILE DUCTS: Unremarkable. PANCREAS: Unremarkable. SPLEEN: Unremarkable. ADRENAL GLANDS: Unremarkable. KIDNEYS AND URETERS: No evidence of hydronephrosis or renal calculus. The ureters are unremarkable. PELVIS BLADDER: Unremarkable REPRODUCTIVE: The uterus appears flattened with abscess and positioned immediately above it while he is anteverted. The ovaries are not well visualized. ABDOMEN & PELVIS STOMACH AND BOWEL: Inflammation changes in the pelvis around at least 2 abscesses the first measuring 8.1 x 5.4 x 6.6 cm a second prevascular space measuring 4.0 x 3.2 x 1.9 cm PERITONEUM/RETROPERITONEUM: No evidence of pneumoperitoneum or free fluid. VASCULATURE: Mild atherosclerotic calcifications are present throughout the abdominal aorta and its b ranches. No evidence of aortic aneurysm. MUSCULOSKELETAL: No acute osseous abnormalities. Mild disc degeneration changes are present throughou t the thoracolumbar spine. LYMPH NODES: No gross evidence for lymphadenopathy. SOFT TISSUE/ABDOMINAL WALL: Bilateral fat-containing inguinal hernias. IMPRESSION: There are at least 2 pelvic abscesses the largest one measuring up to 8.1 x 5.4 x 6.6 cm which is abu ts the uterus and is immediately next to the superior aspect of the uterus which is anteverted no add itional. A more posterior presacral abscess is also present during 4.0 x 3.2 x 1.9 cm. Unclear exact etiology of these abscesses. Etiology is felt to represent sequela of diverticulitis with perforation and abscess formation. Surgical consultation recommended.
[2023-08-16 17:13] LABS: Appearance,Urine Clear (Clear); Bilirubin,Urine Negative (Negative); Blood,Urine Negative (Negative); Color,Urine Yellow; Glucose,Urine (UA) Negative (Negative); Ketones,Urine 1+ (Negative); Leukocyte Esterase,Urine Small (Negative); Nitrite,Urine Negative (Negative); PH, Urine 6.5 (5.0-8.0); Protein,Urine 2+ (Negative); RBC,Urine <1 /hpf (0-5); Specific Gravity,Urine 1.034 (1.001-1.035); Squamous Epithelial Cell,Urine 1 /hpf (0-4); Urobilinogen,Urine <2.0 mg/dL (<2.0); WBC,Urine 28 /hpf (0-5)
[2023-08-16] MEDS ORDERED: ONDANSETRON 4 MG/2 ML VIAL IVP PRN (17:14)
[2023-08-16] MEDS ORDERED: MORPHINE SULFATE 4 MG/ML SYRINGE IV PRN (17:14)
[2023-08-16] MEDS ORDERED: NALOXONE 0.4 MG/ML 1 ML VIAL IV PRN (17:14)
--- NOTE | 2023-08-16 17:59 | P.HPIM ---
History of Present Illness H&P Date: 08/16/23 Chief Complaint: constipation, fevers, chills 83-year-old woman with a medical history of hypertension, hyperlipidemia, severe arthritis, GERD presented for evaluation constipation, fevers, chills. Patient says that 3 weeks ago she started to develop constipation as well as bloating, has not had many bowel movements in the last 3 weeks. She says that every day or other day she passes maximum 1-2 pencil thin 2-3 inch stool. Since that time, she's had increasing abdominal distention, as well as nausea. In the last 24 hours she developed fevers, sweats, chills, and worsening abdominal pain prompting her evaluation in the emergency room. Patient denies vomiting, chest pain, palpitations, syncopal, presyncope, cough, dyspnea, dysuria, numbness/weakness of extremities. In the emergency room, patient was afebrile, 130/77, heart rate 89, 93% on room air. CBC is remarkable for leukocytosis at 22.9, thrombocytosis to 454. Basic metabolic panel shows BUN 27, creatinine of 1.16. Liver function tests are unremarkable. Lipase was 79. UA shows 2+ protein, 1+ ketones, small leukocyte esterase, 28 white blood cells. Abdomen/pelvis CT shows inflammation changes in the pelvis with at least 2 abscesses measuring 8 cm and 4 cm large. Case was discussed with the emergency room where a decision was made to admit the patient to hospital for further evaluation. All Systems reviewed and pertinent positives and negatives noted in HPI, all other symptoms are negative Gen: in no apparent distress, resting comfortably in bed Eyes: PERRL, no scleral injection or icterus HENT: normocephalic, atraumatic, good hearing acuity, moist mucous membranes Neck: no tracheal deviation, full range of motion Resp: good air exchange, breathing comfortably with no accessory muscle use, no tactile fremitus CVS: good distal perfusion x 4, no pitting edema GI: Diffusely tender palpation, distended no hepatosplenomegaly : no suprapubic tenderness, no CVAT, sexton catheter not present MSK: no clubbing, no cyanosis, no noted contractures of extremities Skin: no noted rashes, petechiae; temperature of skin is appropriate Neuro: moving all extremities without signs of weakness, CN II-XII intact Psych: cooperative, euthymic mood, insight and judgment intact Labs and imaging as above Assessment/plan: Multiple pelvic abscesses Leukocytosis secondary to above -Admit the patient to inpatient status -Gen. surgery consult, SOCK BOARDER consult -Nothing by mouth -Ceftriaxone/Flagyl -Morphine when necessary for pain control -Tylenol when necessary for fevers -Zofran when necessary for nausea -IV fluids: Normal saline 75 mL per hour -Blood cultures are pending -ID consultation Hypertension Hyperlipidemia GERD without esophagitis -Home medications reconciliation is pending medication history completion Patient is full code Past Medical History Past Medical History: GERD/Reflux, Hearing Disorder / Deafness, Hyperlipidemia, Hypertension, Osteoarthritis (OA) Additional Past Medical History / Comment(s): Lower back pain. Hx COVID 07/2021. Bilateral hearing aid use. History of Any Multi-Drug Resistant Organisms: None Reported Past Surgical History: Joint Replacement, Orthopedic Surgery, Tubal Ligation Additional Past Surgical History / Comment(s): ORIF left ankle, left ankle replacement, polyp removed from vocal cords, pain clinic procedure, right shoulder rotator cuff repair. Past Anesthesia/Blood Transfusion Reactions: No Reported Reaction Past Psychological History: No Psychological Hx Reported Smoking Status: Never smoker Past Alcohol Use History: Daily Past Drug Use History: None Reported - Past Family History Father Family Medical History: Cancer Mother Additional Family Medical History / Comment(s): Aneurysm. Medications and Allergies Home Medications Medication Instructions Recorded Confirmed Type Ascorbic Acid [Vitamin C] 500 mg PO DAILY 09/23/19 07/19/23 History Calcium Carbonate [Calcium] 600 mg PO DAILY 09/23/19 07/19/23 History Cyanocobalamin [Vitamin B-12] 500 mcg PO DAILY 09/23/19 07/19/23 History Diclofenac Sodium [Voltaren] 75 mg PO QAM 09/23/19 07/21/23 History Glucosamine/Chondr Ibrahim A Sod [Osteo 1 tab PO BID 09/23/19 07/19/23 History Bi-Flex Caplet] Pantoprazole [Protonix] 40 mg PO QAM 09/23/19 07/19/23 History hydroCHLOROthiazide [Hydrodiuril] 25 mg PO DAILY 09/23/19 07/19/23 History Losartan Potassium 50 mg PO QAM 08/06/21 07/19/23 History Cholecalciferol (Vitamin D3) 125 mcg PO DAILY 08/31/21 07/19/23 History [Vitamin D3 (125 MCG = 5,000 IU)] Rosuvastatin Calcium [Crestor] 40 mg PO HS 12/15/21 07/21/23 History Diclofenac Sodium Gel [Voltaren 1% 4 gm TOPICAL QID 30 Days #100 gm 01/03/22 07/21/23 Rx Gel] Aspirin 81 mg PO DAILY 06/02/22 07/19/23 History Allergies Allergy/AdvReac Type Severity Reaction Status Date / Time [facility] Allergy Rash/Hives Verified 08/16/23 13:09 pneumococcal vaccine Allergy arm Verified 08/16/23 13:09 swelled up & Rash Physical Exam Osteopathic Statement: *. No significant issues noted on an osteopathic structural exam other than those noted in the History and Physical/Consult. Vitals: Vital Signs Temp Pulse Resp BP Pulse Ox 08/16/23 17:13 86 18 114/65 94 L 08/16/23 13:09 97.6 F 89 18 130/77 Intake and Output 08/16/23 08/16/23 08/16/23 06:59 14:59 22:59 Other: Weight 81.193 kg Results CBC & Chem 7: 08/16/23 14:13 08/16/23 14:13 Labs: Abnormal Lab Results - Last 24 Hours (Table) 08/16/23 08/16/23 08/16/23 Range/Units 14:13 14:13 16:47 WBC 22.9 H (3.8-10.6) k/uL Plt Count 454 H (150-450) k/uL Neutrophils # 20.8 H (1.3-7.7) k/uL BUN 27 H (7-17) mg/dL Creatinine 1.16 H (0.52-1.04) mg/dL Glucose 136 H (74-99) mg/dL Urine Protein 2+ H (Negative) Urine Ketones 1+ H (Negative) Ur Leukocyte Esterase Small H (Negative) Urine WBC 28 H (0-5) /hpf
[2023-08-16] MEDS ORDERED: LEVOFLOXACIN 750MG-D5W PMX 750 MG in DEXTROSE/WATER 1 150ML.BAG IVPB SCH (18:00)
[2023-08-16] MEDS ORDERED: PIPERACILLIN-TAZOBACTAM 3.375 GM in SODIUM CHLORIDE 0.9% 100 ML IVPB SCH (18:00)
[2023-08-16] MEDS: SODIUM CHLORIDE 0.9% 1,000 ML IV SCH (18:21)
[2023-08-16] MEDS ORDERED: FAMOTIDINE 20 MG TAB PO SCH (21:00)
[2023-08-16] MEDS: FAMOTIDINE 20 MG TAB PO SCH (21:10)
[2023-08-16] MEDS: metroNIDAZOLE-NS PMX 500 MG in SALINE 1 100ML.BAG IVPB SCH (21:11)
[2023-08-17] MEDS: metroNIDAZOLE-NS PMX 500 MG in SALINE 1 100ML.BAG IVPB SCH ×2 (02:00→15:38)
--- NOTE | 2023-08-17 07:01 | P.GSCN ---
History of Present Illness Consult date: 08/16/23 History of present illness: Family at bedside. Patient reports feeling ill for 3 weeks with diffuse abdominal soreness. Last colonoscopy over 10 years ago. Patient denies known history of diverticulosis. CT of the abdomen and pelvis independent review demonstrates presence of diverticulosis. Large multiple pelvic abscesses. Additionally, patient reports movement constipation. High likelihood for colonic source. Recommend interventional radiology drainage of pelvic abscess. Will need a colonoscopy 6-8 weeks after inciting event. All questions were addressed. Coags obtained. May have clear liquids. Past Medical History Past Medical History: GERD/Reflux, Hearing Disorder / Deafness, Hyperlipidemia, Hypertension, Osteoarthritis (OA) Additional Past Medical History / Comment(s): Lower back pain. Hx COVID 07/2021. Bilateral hearing aid use. History of Any Multi-Drug Resistant Organisms: None Reported Past Surgical History: Joint Replacement, Orthopedic Surgery, Tubal Ligation Additional Past Surgical History / Comment(s): ORIF left ankle, left ankle replacement, polyp removed from vocal cords, pain clinic procedure, right shoulder rotator cuff repair. Past Anesthesia/Blood Transfusion Reactions: No Reported Reaction Past Psychological History: No Psychological Hx Reported Smoking Status: Never smoker Past Alcohol Use History: Daily Additional Past Alcohol Use History / Comment(s): 1 alcoholic drink daily. Past Drug Use History: None Reported - Past Family History Father Family Medical History: Cancer Mother Additional Family Medical History / Comment(s): Aneurysm. Medications and Allergies Home Medications Medication Instructions Recorded Confirmed Type Glucosamine/Chondr Ibrahim A Sod [Osteo 2 tab PO DAILY 09/23/19 08/16/23 History Bi-Flex Caplet] Pantoprazole [Protonix] 40 mg PO QAM 09/23/19 08/16/23 History hydroCHLOROthiazide [Hydrodiuril] 25 mg PO DAILY 09/23/19 08/16/23 History Cholecalciferol (Vitamin D3) 125 mcg PO DAILY 08/31/21 08/16/23 History [Vitamin D3 (125 MCG = 5,000 IU)] Rosuvastatin Calcium [Crestor] 40 mg PO HS 12/15/21 08/16/23 History Aspirin 81 mg PO DAILY 06/02/22 08/16/23 History Ascorbic Acid [Vitamin C] 1,000 mg PO DAILY 08/16/23 08/16/23 History Calcium Carbonate/Vitamin D3 2 tab PO DAILY 08/16/23 08/16/23 History [Calcium 600-D3 20 mcg (800 Unit)] Cyanocobalamin (Vitamin B-12) 1,000 mcg PO DAILY 08/16/23 08/16/23 History [Vitamin B-12] Diclofenac Sodium [Voltaren] 75 mg PO DAILY 08/16/23 08/16/23 History Losartan [Cozaar] 50 mg PO DAILY 08/16/23 08/16/23 History Multivitamins, Thera [Multivitamin 1 tab PO DAILY 08/16/23 08/16/23 History (formulary)] Allergies Allergy/AdvReac Type Severity Reaction Status Date / Time montelukast [From [facility]] Allergy Rash/Hives Verified 08/16/23 18:12 pneumococcal vaccine Allergy arm Verified 08/16/23 18:12 swelled up & Rash Surgical - Exam Vital Signs Temp Pulse Resp BP 97.6 F 89 18 130/77 08/16/23 13:09 08/16/23 13:09 08/16/23 13:09 08/16/23 13:09 Results - Labs 08/16/23 14:13 08/16/23 14:13 Abnormal Lab Results - Last 24 Hours (Table) 08/16/23 08/16/23 08/16/23 Range/Units 14:13 14:13 16:47 WBC 22.9 H (3.8-10.6) k/uL Plt Count 454 H (150-450) k/uL Neutrophils # 20.8 H (1.3-7.7) k/uL BUN 27 H (7-17) mg/dL Creatinine 1.16 H (0.52-1.04) mg/dL Glucose 136 H (74-99) mg/dL Urine Protein 2+ H (Negative) Urine Ketones 1+ H (Negative) Ur Leukocyte Esterase Small H (Negative) Urine WBC 28 H (0-5) /hpf Diabetes panel 08/16/23 Range/Units 14:13 Sodium 139 (137-145) mmol/L Potassium 5.1 (3.5-5.1) mmol/L Chloride 99 (98-107) mmol/L Carbon Dioxide 26 (22-30) mmol/L BUN 27 H (7-17) mg/dL Creatinine 1.16 H (0.52-1.04) mg/dL Glucose 136 H (74-99) mg/dL Calcium 9.4 (8.4-10.2) mg/dL AST 35 (14-36) U/L ALT 18 (4-34) U/L Alkaline Phosphatase 50 (38-126) U/L Total Protein 7.8 (6.3-8.2) g/dL Albumin 3.6 (3.5-5.0) g/dL Calcium panel 08/16/23 Range/Units 14:13 Calcium 9.4 (8.4-10.2) mg/dL Albumin 3.6 (3.5-5.0) g/dL Pituitary panel 08/16/23 Range/Units 14:13 Sodium 139 (137-145) mmol/L Potassium 5.1 (3.5-5.1) mmol/L Chloride 99 (98-107) mmol/L Carbon Dioxide 26 (22-30) mmol/L BUN 27 H (7-17) mg/dL Creatinine 1.16 H (0.52-1.04) mg/dL Glucose 136 H (74-99) mg/dL Calcium 9.4 (8.4-10.2) mg/dL Adrenal panel 08/16/23 Range/Units 14:13 Sodium 139 (137-145) mmol/L Potassium 5.1 (3.5-5.1) mmol/L Chloride 99 (98-107) mmol/L Carbon Dioxide 26 (22-30) mmol/L BUN 27 H (7-17) mg/dL Creatinine 1.16 H (0.52-1.04) mg/dL Glucose 136 H (74-99) mg/dL Calcium 9.4 (8.4-10.2) mg/dL Total Bilirubin 1.1 (0.2-1.3) mg/dL AST 35 (14-36) U/L ALT 18 (4-34) U/L Alkaline Phosphatase 50 (38-126) U/L Total Protein 7.8 (6.3-8.2) g/dL Albumin 3.6 (3.5-5.0) g/dL
[2023-08-17 07:40] LABS: Basophils % (A) 0 %; Eosinophils % (A) 0 %; HCT 35.4 % (34.0-46.0); HGB 11.4 gm/dL (11.4-16.0); Hypochromasia Slight; Lymphocytes # (A) 1.1 k/uL (1.0-4.8); Lymphocytes % (A) 5 %; MCHC 32.2 g/dL (31.0-37.0); MCV 99.4 fL (80.0-100.0); Mean Platelet Volume 8.7; Monocytes # (A) 0.8 k/uL (0-1.0); Monocytes % (A) 4 %; Neutrophils % (A) 89 %; Platelet Count 379 k/uL (150-450); RBC 3.57 m/uL (3.80-5.40); RDW 12.6 % (11.5-15.5); WBC 20.2 k/uL (3.8-10.6)
[2023-08-17 07:58] LABS: Prothrombin Time 10.9 sec (10.0-12.5)
[2023-08-17 08:32] LABS: African American GFR (CKD) 47 (>60 ml/min/1.73 sqM); Anion Gap 12 mmol/L; Blood Urea Nitrogen 25 mg/dL (7-17); Calcium 8.9 mg/dL (8.4-10.2); Carbon Dioxide 25 mmol/L (22-30); Chloride 100 mmol/L (98-107); Glucose 122 mg/dL (74-99); Magnesium 1.6 mg/dL (1.6-2.3); Non-African American GFR(CKD) 41 (>60 ml/min/1.73 sqM); Potassium 3.9 mmol/L (3.5-5.1); Sodium 137 mmol/L (137-145)
--- NOTE | 2023-08-17 10:05 | P.PN ---
Subjective Progress Note Date: 08/17/23 No new complaints today. Seen by surgery who recommends IR consult for drainage of abscesses. Gen: in no apparent distress, resting comfortably in bed Eyes: PERRL, no scleral injection or icterus HENT: normocephalic, atraumatic, good hearing acuity, moist mucous membranes Neck: no tracheal deviation, full range of motion Resp: good air exchange, breathing comfortably with no accessory muscle use, no tactile fremitus CVS: good distal perfusion x 4, no pitting edema GI: Diffusely tender palpation, distended no hepatosplenomegaly : no suprapubic tenderness, no CVAT, sexton catheter not present MSK: no clubbing, no cyanosis, no noted contractures of extremities Skin: no noted rashes, petechiae; temperature of skin is appropriate Neuro: moving all extremities without signs of weakness, CN II-XII intact Psych: cooperative, euthymic mood, insight and judgment intact Hospital Course: 83-year-old woman with a medical history of hypertension, hyperlipidemia, severe arthritis, GERD presented for evaluation constipation, fevers, chills. In the emergency room, patient was afebrile, 130/77, heart rate 89, 93% on room air. CBC is remarkable for leukocytosis at 22.9, thrombocytosis to 454. Basic metabolic panel shows BUN 27, creatinine of 1.16. Liver function tests are unremarkable. Lipase was 79. UA shows 2+ protein, 1+ ketones, small leukocyte esterase, 28 white blood cells. Abdomen/pelvis CT shows inflammation changes in the pelvis with at least 2 abscesses measuring 8 cm and 4 cm large. Case was discussed with the emergency room where a decision was made to admit the patient to hospital for further evaluation. Assessment/plan: Multiple pelvic abscesses Leukocytosis secondary to above -Admit the patient to inpatient status -Gen. surgery consult, recommend IR drainage, consult placed -SEO COORDINATOR consult is pending -Nothing by mouth -Ceftriaxone/Flagyl -Morphine when necessary for pain control -Tylenol when necessary for fevers -Zofran when necessary for nausea -IV fluids: Normal saline 75 mL per hour -Blood cultures are pending -ID consultation is pending -WBC improving, Cr stable, but will monitor Hypertension Hyperlipidemia GERD without esophagitis -Home medications reconciliation is pending medication history completion Patient is full code Objective - Vital Signs Vital signs: Vital Signs Temp 99.2 F 08/17/23 04:00 Pulse 76 08/17/23 04:00 Resp 18 08/17/23 04:00 BP 93/60 08/17/23 04:00 Pulse Ox 96 08/17/23 04:00 FiO2 Intake & Output 08/16/23 08/17/23 08/17/23 18:59 06:59 18:59 Intake Total 100 Balance 100 Weight 81.193 kg 81.193 kg Intake: Intake, IV Titration 100 Amount metroNIDAZOLE-NS PMX 500 100 mg In Saline 1 100ml.bag @ 100 mls/hr IVPB Q8H [facility] Rx#:[id number] Other: # Voids 1 - Labs CBC & Chem 7: 08/17/23 06:33 08/17/23 06:33 Labs: Abnormal Lab Results - Last 24 Hours (Table) 08/16/23 08/16/23 08/16/23 Range/Units 14:13 14:13 16:47 WBC 22.9 H (3.8-10.6) k/uL RBC (3.80-5.40) m/uL Plt Count 454 H (150-450) k/uL Neutrophils # 20.8 H (1.3-7.7) k/uL BUN 27 H (7-17) mg/dL Creatinine 1.16 H (0.52-1.04) mg/dL Glucose 136 H (74-99) mg/dL Urine Protein 2+ H (Negative) Urine Ketones 1+ H (Negative) Ur Leukocyte Esterase Small H (Negative) Urine WBC 28 H (0-5) /hpf 08/17/23 08/17/23 Range/Units 06:33 06:33 WBC 20.2 H (3.8-10.6) k/uL RBC 3.57 L (3.80-5.40) m/uL Plt Count (150-450) k/uL Neutrophils # 18.0 H (1.3-7.7) k/uL BUN 25 H (7-17) mg/dL Creatinine 1.22 H (0.52-1.04) mg/dL Glucose 122 H (74-99) mg/dL Urine Protein (Negative) Urine Ketones (Negative) Ur Leukocyte Esterase (Negative) Urine WBC (0-5) /hpf
--- NOTE | 2023-08-17 10:47 | P.PN ---
Subjective Progress Note Date: 08/17/[address] Dee IR, IR nurse Arianna, patient and patient's nurse. Patient amenable for IR drainage catheter with anticipated catheter drainage bag for pelvis abscess. Per radiologist, only 1 abscess accessible. Objective - Vital Signs Vital signs: Vital Signs Temp 97.6 F 08/17/23 07:00 Pulse 76 08/17/23 07:00 Resp 18 08/17/23 07:00 BP 115/70 08/17/23 07:00 Pulse Ox 97 08/17/23 07:00 FiO2 Intake & Output 08/16/23 08/17/23 08/17/23 18:59 06:59 18:59 Intake Total 100 0 Balance 100 0 Weight 81.193 kg 81.193 kg Intake: Intake, IV Titration 100 Amount metroNIDAZOLE-NS PMX 500 100 mg In Saline 1 100ml.bag @ 100 mls/hr IVPB Q8H [facility] Rx#:[id number] Oral 0 Other: # Voids 1 1 - Labs CBC & Chem 7: 08/17/23 06:33 08/17/23 06:33 Labs: Abnormal Lab Results - Last 24 Hours (Table) 08/16/23 08/16/23 08/16/23 Range/Units 14:13 14:13 16:47 WBC 22.9 H (3.8-10.6) k/uL RBC (3.80-5.40) m/uL Plt Count 454 H (150-450) k/uL Neutrophils # 20.8 H (1.3-7.7) k/uL BUN 27 H (7-17) mg/dL Creatinine 1.16 H (0.52-1.04) mg/dL Glucose 136 H (74-99) mg/dL Urine Protein 2+ H (Negative) Urine Ketones 1+ H (Negative) Ur Leukocyte Esterase Small H (Negative) Urine WBC 28 H (0-5) /hpf 08/17/23 08/17/23 Range/Units 06:33 06:33 WBC 20.2 H (3.8-10.6) k/uL RBC 3.57 L (3.80-5.40) m/uL Plt Count (150-450) k/uL Neutrophils # 18.0 H (1.3-7.7) k/uL BUN 25 H (7-17) mg/dL Creatinine 1.22 H (0.52-1.04) mg/dL Glucose 122 H (74-99) mg/dL Urine Protein (Negative) Urine Ketones (Negative) Ur Leukocyte Esterase (Negative) Urine WBC (0-5) /hpf
--- NOTE | 2023-08-17 11:54 | P.PN ---
Subjective Progress Note Date: 08/17/23 CHIEF COMPLAINT: Abdominal pain HISTORY OF PRESENT ILLNESS: Patient reports of the pain is across her lower abdomen. Pain is controlled with pain medication. She is scheduled for drain placement by intervention radiology for the pelvic abscess today. She does report nausea. She is having flatus. Afebrile. WBC slightly down from 22.9- 20.2. Infectious disease and BULK INTAKE WORKER service also on consult. PHYSICAL EXAM: VITAL SIGNS: Reviewed GENERAL: Well-developed in no acute distress. HEENT: No sclera icterus. Extraocular movements grossly intact. Moist buccal mucosa. Head is atraumatic, normocephalic. Hears conversational speech. No nasal drainage. NECK: Supple without lymphadenopathy. CHEST: Non-labored respirations and equal bilateral excursions. CARDIOVASCULAR: Palpable 2+ radial pulses. ABDOMEN: Soft. Nondistended. Tender with palpation across the lower abdomen MUSCULOSKELETAL: No clubbing or cyanosis. NEUROLOGIC: No focal or lateralizing signs. Cranial nerves II through XII grossly intact. PSYCH: Appropriate affect. Alert and oriented to person, place and time. SKIN: Well perfused. Good skin turgor. ASSESSMENT: 1. Abdominal pain 2. 2 pelvic abscesses possible sequelae of diverticulitis with perforation and abscess formation 3. History of diverticulosis 4. Constipation PLAN: -Patient scheduled for drain placement by IR service for pelvic abscess today -Continue antibiotics per ID service -Patient can have clear liquid diet -Continue IV fluids -Continue supportive care -Patient will need colonoscopy 6-8 weeks after inciting event Physician Overhead Door Technician note has been reviewed by physician. Signing provider agrees with the documented findings, assessment, and plan of care. Objective - Vital Signs Vital signs: Vital Signs Temp 97.6 F 08/17/23 07:00 Pulse 81 08/17/23 11:45 Resp 16 08/17/23 11:45 BP 115/67 08/17/23 11:45 Pulse Ox 97 08/17/23 11:45 FiO2 Intake & Output 08/16/23 08/17/23 08/17/23 18:59 06:59 18:59 Intake Total 100 0 Balance 100 0 Weight 81.193 kg 81.193 kg Intake: Intake, IV Titration 100 Amount metroNIDAZOLE-NS PMX 500 100 mg In Saline 1 100ml.bag @ 100 mls/hr IVPB Q8H [facility] Rx#:[id number] Oral 0 Other: # Voids 1 1 - Labs CBC & Chem 7: 08/17/23 06:33 08/17/23 06:33 Labs: Abnormal Lab Results - Last 24 Hours (Table) 08/16/23 08/16/23 08/16/23 Range/Units 14:13 14:13 16:47 WBC 22.9 H (3.8-10.6) k/uL RBC (3.80-5.40) m/uL Plt Count 454 H (150-450) k/uL Neutrophils # 20.8 H (1.3-7.7) k/uL BUN 27 H (7-17) mg/dL Creatinine 1.16 H (0.52-1.04) mg/dL Glucose 136 H (74-99) mg/dL Urine Protein 2+ H (Negative) Urine Ketones 1+ H (Negative) Ur Leukocyte Esterase Small H (Negative) Urine WBC 28 H (0-5) /hpf 08/17/23 08/17/23 Range/Units 06:33 06:33 WBC 20.2 H (3.8-10.6) k/uL RBC 3.57 L (3.80-5.40) m/uL Plt Count (150-450) k/uL Neutrophils # 18.0 H (1.3-7.7) k/uL BUN 25 H (7-17) mg/dL Creatinine 1.22 H (0.52-1.04) mg/dL Glucose 122 H (74-99) mg/dL Urine Protein (Negative) Urine Ketones (Negative) Ur Leukocyte Esterase (Negative) Urine WBC (0-5) /hpf
--- NOTE | 2023-08-17 12:34 | CT ---
EXAMINATION TYPE: CT guided abscess drainage DATE OF EXAM: 08/17/2023 COMPARISON: 08/16/2023 HISTORY: abscess drainage CT DLP: [id number] mGycm The procedure is discussed with the patient, the risks, complications, benefits and alternatives, wer e discussed and any questions were answered. Informed consent was obtained. The patient is placed p zion on the CT table, prepped and draped in the usual sterile fashion. Utilizing a 22-gauge Chiba needle access into the pelvic abscess was achieved with placement on over 0.018 wire. There was conversion to a 0.035 system. Serial dilation 8 Bulgarian and placement of an 8 F rench drainage catheter. Samples obtained and sent to pathology for analysis. All elements of maximal barrier and sterile technique were utilized. The patient remained stable thr oughout the procedure with no immediate postprocedural complication. IMPRESSION: 1. Successful CT guided pelvic abscess drainage catheter insertion.
[2023-08-17 14:35] VITALS: BMI 33.8
[2023-08-17] MEDS: SODIUM CHLORIDE 0.9% 1,000 ML IV SCH ×2 (15:01→17:34)
[2023-08-17] MEDS: PIPERACILLIN-TAZOBACTAM 3.375 GM in SODIUM CHLORIDE 0.9% 100 ML IVPB SCH ×2 (15:32→23:50)
--- NOTE | 2023-08-17 18:05 | P.OBCN ---
History of Present Illness Consult date: 08/17/23 Reason for consult: other (pelvic mass ) Chief complaint: abdominal pain History of present illness: 83-year-old 4 para 4 presented to the hospital with complaints of increasing abdominal distention and pain. Patient states over the last 3 weeks she was becoming increasingly uncomfortable, she was noting constipation symptoms, she was seen by primary care where laxatives were ordered and she noted soft performed thin stool after laxatives. Patient denied fever or chills nausea or vomiting during this time. She denies any urinary concerns. Patient then presented to emergency room CAT scan was performed revealing 2 large pelvic masses superior to the uterus. Patient states she underwent menopause around age 52, she denies any vaginal concerns. She is not sexually active, she has been for 2 years. She does state about a 6 pound weight loss but attributes it to not eating secondary to not feeling well. 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52 4 para 4 4 spontaneous vaginal deliveries, no complications with or delivery Review of Systems Constitutional: Reports anorexia, Denies chills, Denies fatigue, Denies fever Ears, nose, mouth and throat: Denies headache Cardiovascular: Denies leg edema Respiratory: Denies dyspnea Gastrointestinal: Reports change in bowel habits, Reports constipation Genitourinary: Reports difficulty voiding, Reports dysuria, Reports pelvic pain, Reports vaginal discharge Menstruation: Reports postmenopausal Past Medical History Past Medical History: GERD/Reflux, Hearing Disorder / Deafness, Hyperlipidemia, Hypertension, Osteoarthritis (OA) Additional Past Medical History / Comment(s): Lower back pain. Hx COVID 07/2021. Bilateral hearing aid use. History of Any Multi-Drug Resistant Organisms: None Reported Past Surgical History: Joint Replacement, Orthopedic Surgery, Tubal Ligation Additional Past Surgical History / Comment(s): ORIF left ankle, left ankle replacement, polyp removed from vocal cords, pain clinic procedure, right shoulder rotator cuff repair. Past Anesthesia/Blood Transfusion Reactions: No Reported Reaction Past Psychological History: No Psychological Hx Reported Smoking Status: Never smoker Past Alcohol Use History: Daily Additional Past Alcohol Use History / Comment(s): 1 alcoholic drink daily. Past Drug Use History: None Reported - Past Family History Father Family Medical History: Cancer Mother Additional Family Medical History / Comment(s): Aneurysm. Medications and Allergies Home Medications Medication Instructions Recorded Confirmed Type Glucosamine/Chondr Ibrahim A Sod [Osteo 2 tab PO DAILY 11/25/19 10/18/23 History Bi-Flex Caplet] Pantoprazole [Protonix] 40 mg PO QAM 09/23/19 08/16/23 History hydroCHLOROthiazide [Hydrodiuril] 25 mg PO DAILY 09/23/19 08/16/23 History Cholecalciferol (Vitamin D3) 125 mcg PO DAILY 08/31/21 08/16/23 History [Vitamin D3 (125 MCG = 5,000 IU)] Rosuvastatin Calcium [Crestor] 40 mg PO HS 12/15/21 08/16/23 History Aspirin 81 mg PO DAILY 06/02/22 08/16/23 History Ascorbic Acid [Vitamin C] 1,000 mg PO DAILY 08/16/23 08/16/23 History Calcium Carbonate/Vitamin D3 2 tab PO DAILY 08/16/23 08/16/23 History [Calcium 600-D3 20 mcg (800 Unit)] Cyanocobalamin (Vitamin B-12) 1,000 mcg PO DAILY 08/16/23 08/16/23 History [Vitamin B-12] Diclofenac Sodium [Voltaren] 75 mg PO DAILY 08/16/23 08/16/23 History Losartan [Cozaar] 50 mg PO DAILY 08/16/23 08/16/23 History Multivitamins, Thera [Multivitamin 1 tab PO DAILY 08/16/23 08/16/23 History (formulary)] Allergies Allergy/AdvReac Type Severity Reaction Status Date / Time montelukast [From [facility]] Allergy Rash/Hives Verified 08/16/23 18:12 pneumococcal vaccine Allergy arm Verified 08/16/23 18:12 swelled up & Rash Exam Osteopathic Statement: *. No significant issues noted on an osteopathic structural exam other than those noted in the History and Physical/Consult. Vital Signs Temp Pulse Pulse Resp BP BP Pulse Ox 08/17/23 16:40 98.0 F 76 18 99/63 91 L 08/17/23 14:10 66 18 91/54 96 08/17/23 13:50 79 18 87/42 96 08/17/23 13:05 68 18 106/64 96 08/17/23 13:00 97.9 F 79 18 113/69 94 L 08/17/23 12:50 71 18 100/61 98 08/17/23 12:35 70 18 98/51 98 08/17/23 12:25 78 18 128/78 90 L 08/17/23 11:45 81 16 115/67 97 08/17/23 11:37 92 L 08/17/23 11:33 83 18 138/73 92 L 08/17/23 07:00 97.6 F 76 18 115/70 97 08/17/23 04:00 99.2 F 76 18 93/60 96 08/16/23 20:03 99.0 F 65 14 95/61 93 L 08/16/23 19:35 98.9 F 77 16 120/60 98 Intake and Output 08/17/23 08/17/23 08/17/23 06:59 14:59 22:59 Intake Total 0 Balance 0 Intake: Oral 0 Other: # Voids 0 Weight 81.193 kg in general this is a well nourished well developed female in NAD, breathing is non labored, abdomen is notable distended non tender on exam no vaginal concerns drainage tube and bag appreciated and drainage purulent material - OBG Physical Exam Abdomen: bloating appreciated on exam Abdomen: no diffuse tenderness, no guarding noted Results Result Diagrams: 08/17/23 06:33 08/17/23 06:33 Abnormal Lab Results - Last 24 Hours (Table) 08/17/23 08/17/23 Range/Units 06:33 06:33 WBC 20.2 H (3.8-10.6) k/uL RBC 3.57 L (3.80-5.40) m/uL Neutrophils # 18.0 H (1.3-7.7) k/uL BUN 25 H (7-17) mg/dL Creatinine 1.22 H (0.52-1.04) mg/dL Glucose 122 H (74-99) mg/dL Assessment and Plan (1) Abdominal pain Current Visit: Yes Status: Acute Code(s): R10.9 - UNSPECIFIED ABDOMINAL PAIN SNOMED Code(s): 38089912 (2) Pelvic abscess Current Visit: Yes Status: Acute Code(s): [id number] - SNOMED Code(s): 605013282 Plan: 83 yo female with noted pelvic mass, drainage of purulent material noted s/p drain placed by IR. I doubt pelvic etiology as her concerns are mostly bowel related. I will order TVUS to try and rule out pelvic cause of the absecess, attempt to visualize ovaries. plan is discussed with pt and she agrees.
[2023-08-17] MEDS: FAMOTIDINE 20 MG TAB PO SCH (20:18)
--- NOTE | 2023-08-17 22:18 | P.CONS ---
History of Present Illness - Reason for Consult Consult date: 08/17/23 Pelvic abscess Requesting physician: Harry Antonio - Chief Complaint Abdominal pain and constipation x few days - History of Present Illness Patient is a 83-year-old female with a past medical history significant for hypertension hyperlipidemia osteoarthritis reflux presenting to the hospital yesterday afternoon for evaluation of abdominal pain and constipat ion patient mention she is having problem with constipation for the last 2 to 3 weeks and did have hard time having a bowel movement started having abdominal pain which is mostly lower abdominal area describing it to be sharp colicky intensity was almost 10 out of 10 by the time she presented to the hospital patient denies high-grade fever or any chills on presentation to the hospital patient did have a white count of 22.9 with a left shift BUN/creatinine has been mildly elevated urine was mildly positive patient did have a CT of abdominal pelvis with evidence of 2 pelvic abscesses and concerning for possible sequelae of diverticulitis with perforation and abscess formation patient has been evaluated by general surgery and the patient did have a CT-guided drainage of this abscess patient is currently on Rocephin and Flagyl infectious disease has been consulted for further management of antibiotic therapy Review of Systems Positive point and negatives has been mentioned in the HPI, complete review of systems was performed and all other systems are negative Past Medical History Past Medical History: GERD/Reflux, Hearing Disorder / Deafness, Hyperlipidemia, Hypertension, Osteoarthritis (OA) Additional Past Medical History / Comment(s): Lower back pain. Hx COVID 07/2021. Bilateral hearing aid use. History of Any Multi-Drug Resistant Organisms: None Reported Past Surgical History: Joint Replacement, Orthopedic Surgery, Tubal Ligation Additional Past Surgical History / Comment(s): ORIF left ankle, left ankle re placement, polyp removed from vocal cords, pain clinic procedure, right shoulder rotator cuff repair. Past Anesthesia/Blood Transfusion Reactions: No Reported Reaction Past Psychological History: No Psychological Hx Reported Smoking Status: Never smoker Past Alcohol Use History: Daily Additional Past Alcohol Use History / Comment(s): 1 alcoholic drink daily. Past Drug Use History: None Reported - Past Family History Father Family Medical History: Cancer Mother Additional Family Medical History / Comment(s): Aneurysm. Medications and Allergies Home Medications Medication Instructions Recorded Confirmed Type Glucosamine/Chondr Ibrahim A Sod [Osteo 2 tab PO DAILY 09/23/19 08/16/23 History Bi-Flex Caplet] Pantoprazole [Protonix] 40 mg PO QAM 09/23/19 08/16/23 History Cholecalciferol (Vitamin D3) 125 mcg PO DAILY 08/31/21 08/16/23 History [Vitamin D3 (125 MCG = 5,000 IU)] Rosuvastatin Calcium [Crestor] 40 mg PO HS 12/15/21 08/16/23 History Aspirin 81 mg PO DAILY 06/02/22 08/16/23 History Ascorbic Acid [Vitamin C] 1,000 mg PO DAILY 08/16/23 08/16/23 History Calcium Carbonate/Vitamin D3 2 tab PO DAILY 08/16/23 08/16/23 History [Calcium 600-D3 20 mcg (800 Unit)] Cyanocobalamin (Vitamin B-12) 1,000 mcg PO DAILY 08/16/23 08/16/23 History [Vitamin B-12] Multivitamins, Thera [Multivitamin 1 tab PO DAILY 08/16/23 08/16/23 History (formulary)] cefTRIAXone [Rocephin] 2 gm IVPB Q24HR each 08/22/23 Rx metroNIDAZOLE [Flagyl] 500 mg PO TID #42 tab 08/22/23 Rx Allergies Allergy/AdvReac Type Severity Reaction Status Date / Time montelukast [From [facility]] Allergy Rash/Hives Verified 08/16/23 18:12 pneumococcal vaccine Allergy arm Verified 08/16/23 18:12 swelled up & Rash Physical Exam Vitals: Vital Signs Temp Pulse Pulse Resp BP BP Pulse Ox 08/17/23 11:37 92 L 08/17/23 11:33 83 18 138/73 92 L 08/17/23 07:00 97.6 F 76 18 115/70 97 08/17/23 04:00 99.2 F 76 18 93/60 96 08/16/23 20:03 99.0 F 65 14 95/61 93 L 08/16/23 19:35 98.9 F 77 16 120/60 98 08/16/23 17:13 86 18 114/65 94 L 08/16/23 13:09 97.6 F 89 18 130/77 Intake and Output 08/16/23 08/17/23 08/17/23 22:59 06:59 14:59 Intake Total 100 0 Balance 100 0 Intake: Intake, IV Titration 100 Amount metroNIDAZOLE-NS PMX 500 100 mg In Saline 1 100ml.bag @ 100 mls/hr IVPB Q8H [facility] Rx#:[id number] Oral 0 Other: # Voids 1 1 Weight 81.193 kg GENERAL DESCRIPTION: Elderly female lying in bed, no distress. No tachypnea or accessory muscle of respiration use. HEENT: Shows Pallor , no scleral icterus. Oral mucous membrane is dry. No pharyngeal erythema or thrush NECK: Trachea central, no thyromegaly. LUNGS: Unlabored breathing. Clear to auscultation anteriorly. No wheeze or crackle. HEART: S1, S2, regular rate and rhythm. No loud murmur ABDOMEN: Soft, mild lower abdominal tenderness EXTREMITIES: No edema of feet. SKIN: No rash, no masses palpable. NEUROLOGICAL: The patient is awake, alert, oriented x3, mood and affect normal. Results CBC & Chem 7: 08/21/23 05:35 08/21/23 05:35 Labs: Abnormal Lab Results - Last 24 Hours (Table) 08/16/23 08/16/23 08/16/23 Range/Units 14:13 14:13 16:47 WBC 22.9 H (3.8-10.6) k/uL RBC (3.80-5.40) m/uL Plt Count 454 H (150-450) k/uL Neutrophils # 20.8 H (1.3-7.7) k/uL BUN 27 H (7-17) mg/dL Creatinine 1.16 H (0.52-1.04) mg/dL Glucose 136 H (74-99) mg/dL Urine Protein 2+ H (Negative) Urine Ketones 1+ H (Negative) Ur Leukocyte Esterase Small H (Negative) Urine WBC 28 H (0-5) /hpf 08/17/23 08/17/23 Range/Units 06:33 06:33 WBC 20.2 H (3.8-10.6) k/uL RBC 3.57 L (3.80-5.40) m/uL Plt Count (150-450) k/uL Neutrophils # 18.0 H (1.3-7.7) k/uL BUN 25 H (7-17) mg/dL Creatinine 1.22 H (0.52-1.04) mg/dL Glucose 122 H (74-99) mg/dL Urine Protein (Negative) Urine Ketones (Negative) Ur Leukocyte Esterase (Negative) Urine WBC (0-5) /hpf Assessment and Plan (1) Perforation of sigmoid colon due to diverticulitis Current Visit: Yes Status: Acute Code(s): K57.20 - DVTRCLI OF LG INT W PERFORATION AND ABSCESS W/O BLEEDING SNOMED Code(s): 9318146758743354 (2) Pelvic abscess Current Visit: Yes Status: Acute Code(s): RSW7136 - SNOMED Code(s): 348871803 Plan: 1patient presented to hospital with abdominal pain and constipation in this patient with evidence of [address] of the pelvis likely related to perforated diverticulitis and will need to cover for the enteric gram-negative both aerobes and anaerobes 2-we will discontinue Rocephin and Flagyl 3-start the patient on Zosyn 3.375 g every 8 hours while waiting for the culture to finalize Depending upon her response and culture may need IV depending on discharge We will follow on clinical condition and cultures to further adjust medication if needed Thank you for this consultation we will follow the patient along with you Dictation was produced using [employer] dictation software. please excuse any grammatical, word or spelling errors. Time with Patient: Greater than 30
[2023-08-18 05:44] LABS: Appearance,BF Turbid (Clear)
[2023-08-18] MEDS: PIPERACILLIN-TAZOBACTAM 3.375 GM in SODIUM CHLORIDE 0.9% 100 ML IVPB SCH ×2 (08:27→16:22)
--- NOTE | 2023-08-18 10:06 | US ---
EXAMINATION TYPE: US pelvic complete DATE OF EXAM: 08/17/2023 COMPARISON: CT: 08/16/23 CLINICAL INDICATION: Female, 83 years old with history of pelvic abscess; pelvic abscess. Pt now has drain TECHNIQUE: Transabdominal sonographic images of the pelvis were acquired. Transvaginal exam attempte d, however could not visualize anything Date of LMP: 30 years ago EXAM MEASUREMENTS: Uterus: 4.1 x 2.8 x 1.8 cm Endometrial Stripe: 0.5 cm Right Ovary: Not seen Left Ovary: Not seen 1. Uterus: Anteverted and otherwise wnl 2. Endometrium: wnl 3. Right Ovary: Not seen due to atrophy 4. Left Ovary: Not seen due to atrophy 5. Bilateral Adnexa: Large complex area seen in left adnexa measuring 7.4 x 9.1 x 8.9cm 6. Posterior cul-de-sac: wnl IMPRESSION: 1. Complex collection in the left adnexa measuring 9.1 x 8.9 x 7.4 cm. Previous abnormal fluid collec tion located along the superior/posterior aspect of the uterus measured 9.8 x 7.3 x 5.[address] The second smaller abscess just superiorly and posteriorly on 08/16/2023 measured 4.8 cm. We are unable to clearly determine which abscess the current fluid collection represents. 2. Unable to visualize either ovary.
--- NOTE | 2023-08-18 11:09 | P.PN ---
Subjective Progress Note Date: 08/18/23 No new complaints today. pt is s/p IR drainage catheter placement Gen: in no apparent distress, resting comfortably in bed Eyes: PERRL, no scleral injection or icterus HENT: normocephalic, atraumatic, good hearing acuity, moist mucous membranes Neck: no tracheal deviation, full range of motion Resp: good air exchange, breathing comfortably with no accessory muscle use, no tactile fremitus CVS: good distal perfusion x 4, no pitting edema GI: Diffusely tender palpation, distended no hepatosplenomegaly : no suprapubic tenderness, no CVAT, sexton catheter not present MSK: no clubbing, no cyanosis, no noted contractures of extremities Skin: no noted rashes, petechiae; temperature of skin is appropriate Neuro: moving all extremities without signs of weakness, CN II-XII intact Psych: cooperative, euthymic mood, insight and judgment intact Hospital Course: 83-year-old woman with a medical history of hypertension, hyperlipidemia, severe arthritis, GERD presented for evaluation constipation, fevers, chills. In the emergency room, patient was afebrile, 130/77, heart rate 89, 93% on room air. CBC is remarkable for leukocytosis at 22.9, thrombocytosis to 454. Basic metabolic panel shows BUN 27, creatinine of 1.16. Liver function tests are unremarkable. Lipase was 79. UA shows 2+ protein, 1+ ketones, small leukocyte esterase, 28 white blood cells. Abdomen/pelvis CT shows inflammation changes in the pelvis with at least 2 abscesses measuring 8 cm and 4 cm large. Case was discussed with the emergency room where a decision was made to admit the patient to hospital for further evaluation. Assessment/plan: Multiple pelvic abscesses Leukocytosis secondary to above -Admit the patient to inpatient status -Gen. surgery consult, recommend IR drainage, consult placed -PERINATAL SOCIAL WORKER consult recs transvaginal US -scan reviewed today - reaffirmed findings of abscesses, but no uterine patho logy -Ceftriaxone/Flagyl discontinued, started on zosyn 08/17 -Morphine when necessary for pain control -Tylenol when necessary for fevers -Zofran when necessary for nausea -IV fluids: Normal saline 75 mL per hour -Blood cultures are NGTD -ID consultation is appreciated -Fluid cell count - high WBC, high RBC, Cx is pending -CBC, BMP, mg for tomorrow Hypertension Hyperlipidemia GERD without esophagitis -Home medications reconciliation is pending medication history completion Patient is full code Objective - Vital Signs Vital signs: Vital Signs Temp 98.5 F 08/18/23 07:13 Pulse 71 08/18/23 07:13 Resp 18 08/18/23 07:13 BP 98/62 08/18/23 07:13 Pulse Ox 90 L 08/18/23 07:13 FiO2 Intake & Output 08/17/23 08/18/23 08/18/23 18:59 06:59 18:59 Intake Total 0 Output Total 100 80 Balance 0 -100 -80 Weight 81.193 kg Intake: Oral 0 Output: Drainage 100 80 Left Buttock 100 80 Other: Voiding Method Toilet Toilet # Voids 0 1 - Labs CBC & Chem 7: 08/17/23 06:33 08/17/23 06:33 Labs: Abnormal Lab Results - Last 24 Hours (Table) 08/17/23 Range/Units 12:05 Fluid Appearance Turbid A (Clear) Microbiology - Last 24 Hours (Table) 08/16/23 21:08 Blood Culture - Preliminary Blood
[2023-08-18 11:10] LABS: Basophils # (A) 0.06 X 10*3/uL (0.00-0.10); Basophils % (A) 0.3 %; Eosinophils # (A) 0.07 X 10*3/uL (0.04-0.35); Eosinophils % (A) 0.4 %; HGB 11.8 d/dL (12.0-15.0); Lymphocytes # (A) 1.72 X 10*3/uL (0.90-5.00); Lymphocytes % (A) 9.2 %; MCHC 31.1 d/dL (32.0-37.0); MCV 99.7 FL (80.0-97.0); Mean Platelet Volume 11.1 FL (9.5-12.2); Monocytes # (A) 1.25 X 10*3/uL (0.20-1.00); Monocytes % (A) 6.7 %; NRBC Per 100 WBC 0 X 10*3/uL (0.00-0.01); Neutrophils # (A) 15.48 X 10*3/uL (1.80-7.70); Neutrophils % (A) 82.7 %; Platelet Count 432 X 10*3/uL (140-440); RBC 3.81 X 10*6/uL (4.10-5.20); WBC 18.72 X 10*3/uL (4.50-10.00)
[2023-08-18 11:19] LABS: BUN/Creat Ratio 15.71 Ratio (12.00-20.00); Calcium 9.1 mg/dL (8.7-10.3); Chloride 98 mmol/L (96-109); Glucose 133 mg/dL (70-110); Magnesium 1.9 mg/dL (1.5-2.4); Potassium 4.3 mmol/L (3.5-5.5); Sodium 140 mmol/L (135-145)
[2023-08-18] MEDS: SODIUM CHLORIDE 0.9% 1,000 ML IV SCH (11:53)
--- NOTE | 2023-08-18 12:43 | P.PN ---
Subjective Progress Note Date: 08/18/23 CHIEF COMPLAINT: Abdominal pain HISTORY OF PRESENT ILLNESS: Patient is status post CT-guided pelvic abscess drain placement by IR service. Patient reports her abdominal discomfort has decreased. She has cramping across the lower abdomen. She is having flatus. No bowel movement. Reports still a decreased appetite. Denies any nausea or vomiting. Afebrile. WBC 20.2 down to 18.72. Pelvic ultrasound reports complex collection in the left adnexa measuring 9.1 x 8.9 x 7.4 cm. Computed tomography scan had evidence of 2 abscesses. Radiologist unable to clearly determine which abscess the current fluid collection represents. Unable to visualize either ovary. PHYSICAL EXAM: VITAL SIGNS: Reviewed GENERAL: Well-developed in no acute distress. HEENT: No sclera icterus. Extraocular movements grossly intact. Moist buccal mucosa. Head is atraumatic, normocephalic. Hears conversational speech. No nasal drainage. NECK: Supple without lymphadenopathy. CHEST: Non-labored respirations and equal bilateral excursions. CARDIOVASCULAR: Palpable 2+ radial pulses. ABDOMEN: Soft. Nondistended. Mild tenderness to palpation across the lower abdomen. Drain with milky, purulent drainage MUSCULOSKELETAL: No clubbing or cyanosis. NEUROLOGIC: No focal or lateralizing signs. Cranial nerves II through XII grossly intact. PSYCH: Appropriate affect. Alert and oriented to person, place and time. SKIN: Well perfused. Good skin turgor. ASSESSMENT: 1. Abdominal pain 2. 2 pelvic abscesses possible sequelae of diverticulitis with perforation and abscess formation status post drain placement 3. History of diverticulosis 4. Constipation PLAN: -Continue IV antibiotics per infectious disease -Advance diet to full liquids -Continue supportive care -Patient will need colonoscopy in 6-8 weeks after inciting event Physician Special Weapons And Tactics Officer note has been reviewed by physician. Signing provider agrees with the documented findings, assessment, and plan of care. Objective - Vital Signs Vital signs: Vital Signs Temp 98.5 F 08/18/23 07:13 Pulse 71 08/18/23 07:13 Resp 18 08/18/23 07:13 BP 98/62 08/18/23 07:13 Pulse Ox 90 L 08/18/23 07:13 FiO2 Intake & Output 08/17/23 08/18/23 08/18/23 18:59 06:59 18:59 Intake Total 0 Output Total 100 80 Balance 0 -100 -80 Weight 81.193 kg Intake: Oral 0 Output: Drainage 100 80 Left Buttock 100 80 Other: Voiding Method Toilet Toilet # Voids 0 1 - Labs CBC & Chem 7: 08/18/23 06:24 08/18/23 06:24 Labs: Abnormal Lab Results - Last 24 Hours (Table) 08/17/23 08/18/23 08/18/23 Range/Units 12:05 06:24 06:24 WBC 18.72 H (4.50-10.00) X 10*3/uL RBC 3.81 L (4.10-5.20) X 10*6/uL Hgb 11.8 L (12.0-15.0) d/dL MCV 99.7 H (80.0-97.0) FL MCHC 31.1 L (32.0-37.0) d/dL Neutrophils # 15.48 H (1.80-7.70) X 10*3/uL Monocytes # 1.25 H (0.20-1.00) X 10*3/uL Anion Gap 14.00 H (4.00-12.00) mmol/L Est GFR (CKD-EPI) 37 L (>=60) Glucose 133 H (70-110) mg/dL Fluid Appearance Turbid A (Clear) Microbiology - Last 24 Hours (Table) 08/16/23 21:08 Blood Culture - Preliminary Blood
--- NOTE | 2023-08-18 14:04 | P.PN ---
Progress Note - Text Progress Note Date: 08/18/23 Pelvic ultrasound reviewed, continued visualization of pelvic abscess. Given nature of drainage appreciated from catheter remains infectious as and primary diagnoses. Ovaries were not visualized most likely secondary to menopausal status and abscess appreciated. Able to follow as out pt as this does appear infectious in nature. thank you for the consult if you have any further concerns please reach out
--- NOTE | 2023-08-18 16:54 | P.PN ---
Subjective Progress Note Date: 08/18/23 Principal diagnosis: Pelvic abscess likely from perforated diverticulitis Patient is a 83-year-old female with a past medical history significant for hypertension hyperlipidemia osteoarthritis reflux presenting to the hospital for evaluation of abdominal pain and constipation, patient had been diagnosed with the plan IS likely related to perforated diverticulitis status post CT-guided drainage one of them. On today's evaluation that is 08/18/2023, the patient remains to be afebrile the patient is breathing comfortably on room air without need for supplemental oxygen, the patient denies chest pain, shortness of breath or cough, patient denies nausea/vomiting ,, abdominal pain has decreased in intensity. Patient did have white count of 18.72 slightly lower than yesterday creatinine is 1.4, cultures are pending Objective - Vital Signs Vital signs: Vital Signs Temp 97.5 F L 08/18/23 12:43 Pulse 71 08/18/23 12:43 Resp 17 08/18/23 12:43 BP 114/72 08/18/23 12:43 Pulse Ox 90 L 08/18/23 12:43 FiO2 Intake & Output 08/17/23 08/18/23 08/18/23 18:59 06:59 18:59 Intake Total 0 Output Total 100 80 Balance 0 -100 -80 Weight 81.193 kg Intake: Oral 0 Output: Drainage 100 80 Left Buttock 100 80 Other: Voiding Method Toilet Toilet # Voids 0 1 - Exam GENERAL DESCRIPTION: An elderly FEmale lying in bed in no distress RESPIRATORY SYSTEM: Unlabored breathing , decreased breath sounds at bases HEART: S1 S2 regular rate and rhythm , ABDOMEN: Soft , no tenderness EXTREMITIES: No edema feet - Labs CBC & Chem 7: 08/18/23 06:24 08/18/23 06:24 Labs: Abnormal Lab Results - Last 24 Hours (Table) 08/17/23 08/18/23 08/18/23 Range/Units 12:05 06:24 06:24 WBC 18.72 H (4.50-10.00) X 10*3/uL RBC 3.81 L (4.10-5.20) X 10*6/uL Hgb 11.8 L (12.0-15.0) d/dL MCV 99.7 H (80.0-97.0) FL MCHC 31.1 L (32.0-37.0) d/dL Neutrophils # 15.48 H (1.80-7.70) X 10*3/uL Monocytes # 1.25 H (0.20-1.00) X 10*3/uL Anion Gap 14.00 H (4.00-12.00) mmol/L Est GFR (CKD-EPI) 37 L (>=60) Glucose 133 H (70-110) mg/dL Fluid Appearance Turbid A (Clear) Microbiology - Last 24 Hours (Table) 08/16/23 21:08 Blood Culture - Preliminary Blood Assessment and Plan (1) Pelvic abscess Current Visit: Yes Status: Acute Code(s): CYA2263 - SNOMED Code(s): 838502161 Plan: 1patient presented to hospital with abdominal pain and constipation in this patient with evidence of [address] of the pelvis likely related to perforated diverticulitis and will need to cover for the enteric gram-negative both aerobes and anaerobes 2-patient to continue with Zosyn 3.375 g every 8 hours while waiting for the culture to finalize and monitor clinical course closely Dictation was produced using [employer] dictation software. please excuse any grammatical, word or spelling errors. Time with Patient: Less than 30
[2023-08-18] MEDS: FAMOTIDINE 20 MG TAB PO SCH (20:29)
[2023-08-18] MEDS: ACETAMINOPHEN TAB 325 MG TAB PO PRN (22:30)
[2023-08-19] MEDS: PIPERACILLIN-TAZOBACTAM 3.375 GM in SODIUM CHLORIDE 0.9% 100 ML IVPB SCH ×3 (00:43→15:35)
[2023-08-19] MEDS: SODIUM CHLORIDE 0.9% 1,000 ML IV SCH ×2 (05:45→13:37)
[2023-08-19 08:55] LABS: African American GFR (CKD) 51 (>60 ml/min/1.73 sqM); Anion Gap 9 mmol/L; Blood Urea Nitrogen 20 mg/dL (7-17); Calcium 8.5 mg/dL (8.4-10.2); Carbon Dioxide 28 mmol/L (22-30); Chloride 100 mmol/L (98-107); Glucose 106 mg/dL (74-99); Magnesium 1.7 mg/dL (1.6-2.3); Non-African American GFR(CKD) 44 (>60 ml/min/1.73 sqM); Potassium 4.1 mmol/L (3.5-5.1); Sodium 137 mmol/L (137-145)
[2023-08-19 09:04] LABS: Basophils % (A) 0 %; Eosinophils # (A) 0.2 k/uL (0-0.7); Eosinophils % (A) 2 %; HCT 33.8 % (34.0-46.0); HGB 11.3 gm/dL (11.4-16.0); Lymphocytes # (A) 1.2 k/uL (1.0-4.8); Lymphocytes % (A) 10 %; MCH 32.6 pg (25.0-35.0); MCHC 33.3 g/dL (31.0-37.0); MCV 97.7 fL (80.0-100.0); Mean Platelet Volume 8.8; Monocytes # (A) 0.6 k/uL (0-1.0); Monocytes % (A) 5 %; Neutrophils % (A) 82 %; Platelet Count 369 k/uL (150-450); RBC 3.46 m/uL (3.80-5.40); RDW 12.6 % (11.5-15.5); WBC 12.3 k/uL (3.8-10.6)
--- NOTE | 2023-08-19 13:32 | P.PN ---
Subjective Progress Note Date: 08/19/23 Patient seen and evaluated bedside. Resting comfortably no pain had a bowel movement. Objective - Vital Signs Vital signs: Vital Signs Temp 97.6 F 08/19/23 08:00 Pulse 60 08/19/23 08:00 Resp 20 08/19/23 08:00 BP 131/66 08/19/23 08:00 Pulse Ox 98 08/19/23 08:00 FiO2 Intake & Output 08/18/23 08/19/23 08/19/23 18:59 06:59 18:59 Intake Total 200 Output Total 80 200 Balance 120 -200 Intake: Intake, IV Titration 200 Amount Piperacillin-Tazobactam 3 200 .375 gm In Sodium Chloride 0.9% 100 ml @ 25 mls/hr IVPB Q8HR [facility] Rx# :[id number] Output: Drainage 80 200 Left Buttock 80 200 Other: Voiding Method Toilet # Voids 2 - Exam General no acute distress language 3 Cardiovascular regular rhythm Pulmonary nonlabored breathing Abdomen soft nontender nondistended nondistended no guarding rebound tenderness - Labs CBC & Chem 7: 08/19/23 07:17 08/19/23 07:17 Labs: Abnormal Lab Results - Last 24 Hours (Table) 08/19/23 08/19/23 Range/Units 07:17 07:17 WBC 12.3 H (3.8-10.6) k/uL RBC 3.46 L (3.80-5.40) m/uL Hgb 11.3 L (11.4-16.0) gm/dL Hct 33.8 L (34.0-46.0) % Neutrophils # 10.0 H (1.3-7.7) k/uL BUN 20 H (7-17) mg/dL Creatinine 1.15 H (0.52-1.04) mg/dL Glucose 106 H (74-99) mg/dL Microbiology - Last 24 Hours (Table) 08/17/23 12:05 Gram Stain - Preliminary Aspirate 08/16/23 21:08 Blood Culture - Preliminary Blood Assessment and Plan Assessment: Atrial female status post drain placement secondary to diverticulitis Tolerating treatment well White count trended down Had a bowel movement Abdominal pain improving, contrary to trend white count and abdominal pain advance diet as tolerated
--- NOTE | 2023-08-19 14:59 | P.PN ---
Subjective Progress Note Date: 08/19/23 Patient seen and examined at bedside. No acute events overnight. Gen: in no apparent distress, resting comfortably in bed Eyes: PERRL, no scleral injection or icterus HENT: normocephalic, atraumatic, good hearing acuity, moist mucous membranes Neck: no tracheal deviation, full range of motion Resp: good air exchange, breathing comfortably with no accessory muscle use, no tactile fremitus CVS: good distal perfusion x 4, no pitting edema GI: Diffusely tender palpation, distended no hepatosplenomegaly : no suprapubic tenderness, no CVAT, sexton catheter not present MSK: no clubbing, no cyanosis, no noted contractures of extremities Skin: no noted rashes, petechiae; temperature of skin is appropriate Neuro: moving all extremities without signs of weakness, CN II-XII intact Psych: cooperative, euthymic mood, insight and judgment intact Hospital Course: 83-year-old woman with a medical history of hypertension, hyperlipidemia, severe arthritis, GERD presented for evaluation constipation, fevers, chills. In the emergency room, patient was afebrile, 130/77, heart rate 89, 93% on room air. CBC is remarkable for leukocytosis at 22.9, thrombocytosis to 454. Basic metabolic panel shows BUN 27, creatinine of 1.16. Liver function tests are unremarkable. Lipase was 79. UA shows 2+ protein, 1+ ketones, small leukocyte esterase, 28 white blood cells. Abdomen/pelvis CT shows inflammation changes in the pelvis with at least 2 abscesses measuring 8 cm and 4 cm large. Case was discussed with the emergency room where a decision was made to admit the patient to hospital for further evaluation. Gen. surgery, SAFETY LAMP KEEPER consulted. ID following. Patient remains on IV Zosyn. Now status post IR drainage catheter placement. Data reviewed today: WBC 12.3, hemoglobin 11.3, creatinine 1.15 Assessment/plan: Multiple pelvic abscesses Leukocytosis secondary to above, improving -Gen. surgery reviewed, continue supportive care -SAFETY LAMP KEEPER also following -ID following, continued on IV Zosyn -Morphine when necessary for pain control -Tylenol when necessary for fevers -Zofran when necessary for nausea -IV fluids: Normal saline 75 mL per hour -Blood cultures are NGTD -Fluid cell count - high WBC, high RBC, Cx no growth to date Hypertension - hold home antihypertensives due to lower blood pressures Hyperlipidemia GERD without esophagitis -Continue rest of the home medications Patient is full code DVT prophylaxis: SCDs Objective - Vital Signs Vital signs: Vital Signs Temp 98 F 08/19/23 13:52 Pulse 61 08/19/23 13:52 Resp 16 08/19/23 13:52 BP 120/74 08/19/23 13:52 Pulse Ox 95 08/19/23 13:52 FiO2 Intake & Output 08/18/23 08/19/23 08/19/23 18:59 06:59 18:59 Intake Total 200 118 Output Total 80 200 Balance 120 -200 118 Intake: Intake, IV Titration 200 Amount Piperacillin-Tazobactam 3 200 .375 gm In Sodium Chloride 0.9% 100 ml @ 25 mls/hr IVPB Q8HR [facility] Rx# :[id number] Oral 118 Output: Drainage 80 200 Left Buttock 80 200 Other: Voiding Method Toilet # Voids 2 1 # Bowel Movements 1 - Labs CBC & Chem 7: 08/19/23 07:17 08/19/23 07:17 Labs: Abnormal Lab Results - Last 24 Hours (Table) 08/19/23 08/19/23 Range/Units 07:17 07:17 WBC 12.3 H (3.8-10.6) k/uL RBC 3.46 L (3.80-5.40) m/uL Hgb 11.3 L (11.4-16.0) gm/dL Hct 33.8 L (34.0-46.0) % Neutrophils # 10.0 H (1.3-7.7) k/uL BUN 20 H (7-17) mg/dL Creatinine 1.15 H (0.52-1.04) mg/dL Glucose 106 H (74-99) mg/dL Microbiology - Last 24 Hours (Table) 08/17/23 12:05 Gram Stain - Preliminary Aspirate 08/16/23 21:08 Blood Culture - Preliminary Blood
[2023-08-19] MEDS: FAMOTIDINE 20 MG TAB PO SCH (20:41)
[2023-08-19] MEDS: ATORVASTATIN 80 MG TAB PO SCH (20:41)
--- NOTE | 2023-08-19 22:11 | P.PN ---
Subjective Progress Note Date: 08/19/23 Principal diagnosis: Pelvic abscess likely from perforated diverticulitis Patient is a 83-year-old female with a past medical history significant for hypertension hyperlipidemia osteoarthritis reflux presenting to the hospital for evaluation of abdominal pain and constipation, patient had been diagnosed with the plan IS likely related to perforated diverticulitis status post CT-guided drainage one of them. On today's evaluation that is 08/19/2023, the patient denies any fever or any chills, the patient is breathing comfortably on room air , the patient denies chest pain, shortness of breath and no significant cough, patient denies abdominal pain, no nausea/vomiting or diarrhea abdominal pain has decreased in intensity. Patient did have white count of 12.3 creatinine is 1.15, cultures are pending Objective - Vital Signs Vital signs: Vital Signs Temp 97.6 F 08/19/23 08:00 Pulse 60 08/19/23 08:00 Resp 20 08/19/23 08:00 BP 131/66 08/19/23 08:00 Pulse Ox 98 08/19/23 08:00 FiO2 Intake & Output 08/18/23 08/19/23 08/19/23 18:59 06:59 18:59 Intake Total 200 Output Total 80 200 Balance 120 -200 Intake: Intake, IV Titration 200 Amount Piperacillin-Tazobactam 3 200 .375 gm In Sodium Chloride 0.9% 100 ml @ 25 mls/hr IVPB Q8HR [facility] Rx# :[id number] Output: Drainage 80 200 Left Buttock 80 200 Other: Voiding Method Toilet # Voids 2 - Exam GENERAL DESCRIPTION: An elderly FEmale lying in bed in no distress RESPIRATORY SYSTEM: Unlabored breathing , decreased breath sounds at bases HEART: S1 S2 regular rate and rhythm , ABDOMEN: Soft , no tenderness EXTREMITIES: No edema feet - Labs CBC & Chem 7: 08/19/23 07:17 08/19/23 07:17 Labs: Abnormal Lab Results - Last 24 Hours (Table) 08/19/23 08/19/23 Range/Units 07:17 07:17 WBC 12.3 H (3.8-10.6) k/uL RBC 3.46 L (3.80-5.40) m/uL Hgb 11.3 L (11.4-16.0) gm/dL Hct 33.8 L (34.0-46.0) % Neutrophils # 10.0 H (1.3-7.7) k/uL BUN 20 H (7-17) mg/dL Creatinine 1.15 H (0.52-1.04) mg/dL Glucose 106 H (74-99) mg/dL Microbiology - Last 24 Hours (Table) 08/17/23 12:05 Gram Stain - Preliminary Aspirate 08/16/23 21:08 Blood Culture - Preliminary Blood Assessment and Plan (1) Pelvic abscess Current Visit: Yes Status: Acute Code(s): [id number] - SNOMED Code(s): 569704314 Plan: 1patient presented to hospital with abdominal pain and constipation in this patient with evidence of [address] of the pelvis likely related to perforated diverticulitis and will need to cover for the enteric gram-negative both aerobes and anaerobes 2-patient to continue with Zosyn 3.375 g every 8 hours while waiting for the culture to finalize , will need PICC for outpatient IV antibiotics , discussed with the pt , questions were answered Dictation was produced using [employer] dictation software. please excuse any grammatical, word or spelling errors. Time with Patient: Less than 30
[2023-08-20] MEDS: ACETAMINOPHEN TAB 325 MG TAB PO PRN (00:33)
[2023-08-20] MEDS: SODIUM CHLORIDE 0.9% 1,000 ML IV SCH (00:34)
[2023-08-20] MEDS: PIPERACILLIN-TAZOBACTAM 3.375 GM in SODIUM CHLORIDE 0.9% 100 ML IVPB SCH ×4 (00:34→23:35)
[2023-08-20] MEDS: CYANOCOBALAMIN 500 MCG TAB PO SCH (07:59)
[2023-08-20] MEDS: CHOLECALCIFEROL 125 MCG (5000 IU) TABLET PO SCH (07:59)
[2023-08-20] MEDS: ASCORBIC ACID 500 MG TAB PO SCH (07:59)
[2023-08-20] MEDS: MULTIVITAMINS, THERA 1 EACH TAB PO SCH (07:59)
[2023-08-20] MEDS: CALCIUM CARB-VIT D 500 MG-5 MCG TAB PO SCH (07:59)
[2023-08-20] MEDS: PANTOPRAZOLE 40 MG TABLET PO SCH (07:59)
[2023-08-20] MEDS: ASPIRIN 81 MG PO SCH (07:59)
--- NOTE | 2023-08-20 11:33 | P.PN ---
Subjective Progress Note Date: 08/20/23 Principal diagnosis: Abdominal abscess Patient feels better today. Drain still purulent. She is tolerating regular diet. Afebrile. Morning labs pending. Objective - Vital Signs Vital signs: Vital Signs Temp 97.6 F 08/20/23 08:18 Pulse 64 08/20/23 08:18 Resp 17 08/20/23 08:18 BP 146/86 08/20/23 08:18 Pulse Ox 96 08/20/23 08:18 FiO2 Intake & Output 08/19/23 08/20/23 08/20/23 18:59 06:59 18:59 Intake Total 118 590 Output Total 50 Balance 118 540 Intake: Oral 118 590 Output: Drainage 50 Left Buttock 50 Other: # Voids 1 2 1 # Bowel Movements 1 - Exam abdomen: Soft, nondistended, mild tenderness, drain in place - Labs CBC & Chem 7: 08/19/23 07:17 08/19/23 07:17 Labs: Microbiology - Last 24 Hours (Table) 08/16/23 21:08 Blood Culture - Preliminary Blood 08/17/23 12:05 Gram Stain - Preliminary Aspirate Assessment and Plan (1) Pelvic abscess Narrative/Plan: Patient doing better after CT-guided drainage. Continue antibiotics. Hospital discharge with PICC line. Await repeat CBC. Current Visit: Yes Status: Acute Code(s): [id number] - SNOMED Code(s): 406938111
--- NOTE | 2023-08-20 12:17 | P.PN ---
Subjective Progress Note Date: 08/20/23 Patient seen and examined at bedside. No acute events overnight. Having bowel movements, tolerating liquid diet. Gen: in no apparent distress, resting comfortably in bed Eyes: PERRL, no scleral injection or icterus HENT: normocephalic, atraumatic, good hearing acuity, moist mucous membranes Neck: no tracheal deviation, full range of motion Resp: good air exchange, breathing comfortably with no accessory muscle use, no tactile fremitus CVS: good distal perfusion x 4, no pitting edema GI: Nontender, nondistended, drain in place : no suprapubic tenderness, no CVAT, sexton catheter not present MSK: no clubbing, no cyanosis, no noted contractures of extremities Skin: no noted rashes, petechiae; temperature of skin is appropriate Neuro: moving all extremities without signs of weakness, CN II-XII intact Psych: cooperative, euthymic mood, insight and judgment intact Hospital Course: 83-year-old woman with a medical history of hypertension, hyperlipidemia, severe arthritis, GERD presented for evaluation constipation, fevers, chills. In the emergency room, patient was afebrile, 130/77, heart rate 89, 93% on room air. CBC is remarkable for leukocytosis at 22.9, thrombocytosis to 454. Basic metabolic panel shows BUN 27, creatinine of 1.16. Liver function tests are unremarkable. Lipase was 79. UA shows 2+ protein, 1+ ketones, small leukocyte esterase, 28 white blood cells. Abdomen/pelvis CT shows inflammation changes in the pelvis with at least 2 abscesses measuring 8 cm and 4 cm large. Case was discussed with the emergency room where a decision was made to admit the patient to hospital for further evaluation. Gen. surgery, COORDINATOR CARDIOPULMONARY SERVICES consulted. ID following. Patient remains on IV Zosyn. Now status post IR drainage catheter placement. Likely discharge home with PICC line and IV antibiotics. Data reviewed today: WBC 12.3, hemoglobin 11.3, creatinine 1.15 Assessment/plan: Multiple pelvic abscesses Leukocytosis secondary to above, improving -Gen. surgery note reviewed, continue current care -COORDINATOR CARDIOPULMONARY SERVICES also following -ID following, continued on IV Zosyn, patient will need PICC line and IV antibiotics at home -Morphine when necessary for pain control -Tylenol when necessary for fevers -Zofran when necessary for nausea -IV fluids discontinued, diet advanced to regular -Blood cultures are NGTD -Fluid cell count - high WBC, high RBC, Cx no growth to date Hypertension - hold home antihypertensives due to lower blood pressures Hyperlipidemia GERD without esophagitis -Continue rest of the home medications Patient is full code DVT prophylaxis: SCDs Objective - Vital Signs Vital signs: Vital Signs Temp 97.7 F 08/20/23 12:15 Pulse 58 L 08/20/23 12:15 Resp 17 08/20/23 12:15 BP 120/68 08/20/23 12:15 Pulse Ox 95 08/20/23 12:15 FiO2 Intake & Output 08/19/23 08/20/23 08/20/23 18:59 06:59 18:59 Intake Total 118 590 Output Total 50 Balance 118 540 Intake: Oral 118 590 Output: Drainage 50 Left Buttock 50 Other: # Voids 1 2 1 # Bowel Movements 1 - Labs CBC & Chem 7: 08/19/23 07:17 08/19/23 07:17 Labs: Microbiology - Last 24 Hours (Table) 08/16/23 21:08 Blood Culture - Preliminary Blood 08/17/23 12:05 Gram Stain - Preliminary Aspirate
--- NOTE | 2023-08-20 15:17 | P.PN ---
Subjective Progress Note Date: 08/20/23 Principal diagnosis: Pelvic abscess likely from perforated diverticulitis Patient is a 83-year-old female with a past medical history significant for hypertension hyperlipidemia osteoarthritis reflux presenting to the hospital for evaluation of abdominal pain and constipation, patient had been diagnosed with the plan IS likely related to perforated diverticulitis status post CT-guided drainage one of them. On today's evaluation that is 08/20/2023, the patient remains to be afebrile, the patient is breathing comfortably on room air without the need for supplemental oxygen , the patient denies chest pain or cough, patient denies nausea/vomiting or diarrhea , the patient abdominal pain has decreased in intensity still have output in the drainage catheter Patient did have white count of 12.3 creatinine is 1.15 as of yesterday no lab draw today, cultures are pending Objective - Vital Signs Vital signs: Vital Signs Temp 97.7 F 08/20/23 12:15 Pulse 58 L 08/20/23 12:15 Resp 17 08/20/23 12:15 BP 120/68 08/20/23 12:15 Pulse Ox 95 08/20/23 12:15 FiO2 Intake & Output 08/19/23 08/20/23 08/20/23 18:59 06:59 18:59 Intake Total 118 590 Output Total 50 Balance 118 540 Intake: Oral 118 590 Output: Drainage 50 Left Buttock 50 Other: # Voids 1 2 1 # Bowel Movements 1 - Exam GENERAL DESCRIPTION: An elderly FEmale lying in bed in no distress RESPIRATORY SYSTEM: Unlabored breathing , decreased breath sounds at bases HEART: S1 S2 regular rate and rhythm , ABDOMEN: Soft , no tenderness EXTREMITIES: No edema feet - Labs CBC & Chem 7: 08/19/23 07:17 08/19/23 07:17 Labs: Microbiology - Last 24 Hours (Table) 08/16/23 21:08 Blood Culture - Preliminary Blood 08/17/23 12:05 Gram Stain - Preliminary Aspirate Assessment and Plan (1) Pelvic abscess Current Visit: Yes Status: Acute Code(s): [id number] - SNOMED Code(s): 498538386 Plan: 1patient presented to hospital with abdominal pain and constipation in this patient with evidence of [address] of the pelvis likely related to perforated diverticulitis and will need to cover for the enteric gram-negative both aerobes and anaerobes 2-patient to continue with Zosyn 3.375 g every 8 hours while waiting for the culture to finalize , we'll order a PICC line for outpatient IV antibiotics, discharge antibiotics on the basis of final culture multiple questions concerned were answered Dictation was produced using [employer] dictation software. please excuse any gramm atical, word or spelling errors. Time with Patient: Less than 30
[2023-08-20] MEDS: ATORVASTATIN 80 MG TAB PO SCH (20:00)
[2023-08-20] MEDS: FAMOTIDINE 20 MG TAB PO SCH (20:00)
[2023-08-21] MEDS: CALCIUM CARB-VIT D 500 MG-5 MCG TAB PO SCH (07:00)
[2023-08-21] MEDS: PANTOPRAZOLE 40 MG TABLET PO SCH (07:12)
[2023-08-21] MEDS: ASPIRIN 81 MG PO SCH (07:12)
[2023-08-21] MEDS: PIPERACILLIN-TAZOBACTAM 3.375 GM in SODIUM CHLORIDE 0.9% 100 ML IVPB SCH ×2 (07:12→16:14)
[2023-08-21] MEDS: CHOLECALCIFEROL 125 MCG (5000 IU) TABLET PO SCH (07:13)
[2023-08-21] MEDS: CYANOCOBALAMIN 500 MCG TAB PO SCH (07:13)
[2023-08-21] MEDS: MULTIVITAMINS, THERA 1 EACH TAB PO SCH (07:13)
[2023-08-21] MEDS: ASCORBIC ACID 500 MG TAB PO SCH (07:13)
[2023-08-21 08:53] LABS: Basophils # (A) 0.07 X 10*3/uL (0.00-0.10); Basophils % (A) 0.8 %; Eosinophils # (A) 0.19 X 10*3/uL (0.04-0.35); HCT 36.1 % (37.2-46.3); HGB 11.3 d/dL (12.0-15.0); Lymphocytes # (A) 1.73 X 10*3/uL (0.90-5.00); Lymphocytes % (A) 18.6 %; MCH 31.2 pg (27.0-32.0); MCHC 31.3 d/dL (32.0-37.0); MCV 99.7 FL (80.0-97.0); Monocytes # (A) 0.74 X 10*3/uL (0.20-1.00); NRBC Per 100 WBC 0 X 10*3/uL (0.00-0.01); Neutrophils # (A) 6.37 X 10*3/uL (1.80-7.70); Neutrophils % (A) 68.7 %; Platelet Count 436 X 10*3/uL (140-440); RBC 3.62 X 10*6/uL (4.10-5.20); RDW 12.6 % (11.5-14.5); WBC 9.28 X 10*3/uL (4.50-10.00)
[2023-08-21 11:04] LABS: African American GFR (CKD) 50 (>60 ml/min/1.73 sqM); Anion Gap 7 mmol/L; Blood Urea Nitrogen 16 mg/dL (7-17); Calcium 8.5 mg/dL (8.4-10.2); Carbon Dioxide 28 mmol/L (22-30); Chloride 104 mmol/L (98-107); Glucose 118 mg/dL (74-99); Non-African American GFR(CKD) 43 (>60 ml/min/1.73 sqM); Sodium 139 mmol/L (137-145)
--- NOTE | 2023-08-21 11:25 | P.PN ---
Subjective Progress Note Date: 08/21/23 CHIEF COMPLAINT: pelvic abscess HISTORY OF PRESENT ILLNESS: Patient is status post CT-guided pelvic abscess drain placement by IR service. Patient denies any abdominal pain. 200 mL output through drainage tube. Denies any nausea vomiting. She did have a liquidy stool. Afebrile. WBC has normalized down from 12-9.2 PHYSICAL EXAM: VITAL SIGNS: Reviewed GENERAL: Well-developed in no acute distress. HEENT: No sclera icterus. Extraocular movements grossly intact. Moist buccal mucosa. Head is atraumatic, normocephalic. Hears conversational speech. No nasal drainage. NECK: Supple without lymphadenopathy. CHEST: Non-labored respirations and equal bilateral excursions. CARDIOVASCULAR: Palpable 2+ radial pulses. ABDOMEN: Soft. Nondistended. Nontender. Drain with milky, purulent drainage. Drainage is thinner today MUSCULOSKELETAL: No clubbing or cyanosis. NEUROLOGIC: No focal or lateralizing signs. Cranial nerves II through XII grossly intact. PSYCH: Appropriate affect. Alert and oriented to person, place and time. SKIN: Well perfused. Good skin turgor. ASSESSMENT: 1. Abdominal pain 2. 2 pelvic abscesses possible sequelae of diverticulitis with perforation and abscess formation status post drain placement 3. History of diverticulosis 4. Constipation PLAN: -Patient scheduled for PICC line placement today -Continue IV antibiotics per infectious disease -Continue regular diet -Patient will need colonoscopy in 6-8 weeks after inciting event Physician Protocol Manager note has been reviewed by physician. Signing provider agrees with the documented findings, assessment, and plan of care. Objective - Vital Signs Vital signs: Vital Signs Temp 97.8 F 08/21/23 07:28 Pulse 62 08/21/23 07:28 Resp 20 08/21/23 07:28 BP 123/70 08/21/23 07:28 Pulse Ox 93 L 08/21/23 07:28 FiO2 Intake & Output 08/20/23 08/21/23 08/21/23 18:59 06:59 18:59 Intake Total 350 Output Total 400 Balance -50 Intake: Oral 350 Output: Drainage 400 Left Buttock 400 Other: Voiding Method Toilet # Voids 1 2 - Labs CBC & Chem 7: 08/21/23 05:35 08/21/23 05:35 Labs: Abnormal Lab Results - Last 24 Hours (Table) 08/21/23 Range/Units 05:35 RBC 3.62 L (4.10-5.20) X 10*6/uL Hgb 11.3 L (12.0-15.0) d/dL Hct 36.1 L (37.2-46.3) % MCV 99.7 H (80.0-97.0) FL MCHC 31.3 L (32.0-37.0) d/dL Microbiology - Last 24 Hours (Table) 08/17/23 12:05 Gram Stain - Preliminary Aspirate Body Fluid Culture - Preliminary Gram Neg Bacilli
--- NOTE | 2023-08-21 12:37 | P.NPCON ---
History of Present Illness - Reason for Consult acute renal failure - History of Present Illness Patient is an 83-year-old female who was admitted to the hospital with abdominal pain. She was found to have 2 pelvic abscesses near the uterus. Patient has had CT-guided drainage. Patient is currently maintained on antibiotics. She needs a PICC line for continued antibiotics as outpatient. Serum creatinine noted to be 1.1 mg/dL. No previous history of kidney diseases Patient has good urine output. Blood pressure is not low. Voiding well. Review of Systems As per HPI Past Medical History Past Medical History: GERD/Reflux, Hearing Disorder / Deafness, Hyperlipidemia, Hypertension, Osteoarthritis (OA) Additional Past Medical History / Comment(s): Lower back pain. Hx COVID 07/2021. Bilateral hearing aid use. History of Any Multi-Drug Resistant Organisms: None Reported Past Surgical History: Joint Replacement, Orthopedic Surgery, Tubal Ligation Additional Past Surgical History / Comment(s): ORIF left ankle, left ankle replacement, polyp removed from vocal cords, pain clinic procedure, right shoulder rotator cuff repair. Past Anesthesia/Blood Transfusion Reactions: No Reported Reaction Past Psychological History: No Psychological Hx Reported Smoking Status: Never smoker Past Alcohol Use History: Daily Additional Past Alcohol Use History / Comment(s): 1 alcoholic drink daily. Past Drug Use History: None Reported - Past Family History Father Family Medical History: Cancer Mother Additional Family Medical History / Comment(s): Aneurysm. Medications and Allergies Home Medications Medication Instructions Recorded Confirmed Type Glucosamine/Chondr Ibrahim A Sod [Osteo 2 tab PO DAILY 09/23/19 08/16/23 History Bi-Flex Caplet] Pantoprazole [Protonix] 40 mg PO QAM 09/23/19 08/16/23 History hydroCHLOROthiazide [Hydrodiuril] 25 mg PO DAILY 09/23/19 08/16/23 History Cholecalciferol (Vitamin D3) 125 mcg PO DAILY 08/31/21 08/16/23 History [Vitamin D3 (125 MCG = 5,000 IU)] Rosuvastatin Calcium [Crestor] 40 mg PO HS 12/15/21 08/16/23 History Aspirin 81 mg PO DAILY 06/02/22 08/16/23 History Ascorbic Acid [Vitamin C] 1,000 mg PO DAILY 08/16/23 08/16/23 History Calcium Carbonate/Vitamin D3 2 tab PO DAILY 08/16/23 08/16/23 History [Calcium 600-D3 20 mcg (800 Unit)] Cyanocobalamin (Vitamin B-12) 1,000 mcg PO DAILY 08/16/23 08/16/23 History [Vitamin B-12] Diclofenac Sodium [Voltaren] 75 mg PO DAILY 08/16/23 08/16/23 History Losartan [Cozaar] 50 mg PO DAILY 08/16/23 08/16/23 History Multivitamins, Thera [Multivitamin 1 tab PO DAILY 08/16/23 08/16/23 History (formulary)] Allergies Allergy/AdvReac Type Severity Reaction Status Date / Time montelukast [From [facility]] Allergy Rash/Hives Verified 08/16/23 18:12 pneumococcal vaccine Allergy arm Verified 08/16/23 18:12 swelled up & Rash Physical Exam Vitals: Vital Signs Temp Pulse Resp BP Pulse Ox 08/21/23 07:28 97.8 F 62 20 123/70 93 L 08/21/23 01:50 97.6 F 65 17 126/72 97 08/20/23 19:39 97.5 F L 66 18 129/77 97 Intake and Output 08/20/23 08/21/23 08/21/23 22:59 06:59 14:59 Intake Total 350 Output Total 200 200 Balance -200 150 Intake: Oral 350 Output: Drainage 200 200 Left Buttock 200 200 Other: Voiding Method Toilet # Voids 2 Patient is awake, comfortable, no acute distress Alert oriented times he Examination of the heart S1 and S2 Examination the lungs bilateral breath sounds are heard Abdomen is soft no major tenderness noted Seen examination of lower extremities shows no edema ORTHODONTIC TREATMENT COORDINATOR exam grossly intact Results - Lab Results Most recent lab results Calcium 8.5 mg/dL (8.4-10.2) 08/21/23 05:35 Magnesium 1.7 mg/dL (1.6-2.3) 08/19/23 07:17 08/21/23 05:35 08/21/23 05:35 Assessment and Plan Assessment: 1. Acute kidney injur most likely prerenal with improving renal function. Serum creatinine has decreased from 1.4-1.15 mg/dL. Okay to proceed with PICC line placement. No nephrotoxic agents noted. No obstruction noted on CAT scan 2. Abdominal abscess status post CT-guided drainage of one of the abscesses and currently maintained on IV antibiotics 3. Hypertension currently controlled Plan: Okay to proceed with PICC line Monitor urine output and check post void scan to rule out urine retention. Next Thank you for the consultation. We will continue to follow the patient with you during her hospitalization.
--- NOTE | 2023-08-21 12:48 | P.PN ---
Subjective Progress Note Date: 08/21/23 Patient seen and examined at bedside. No acute events overnight. Having bowel movements, tolerating regular diet Gen: in no apparent distress, resting comfortably in bed Eyes: PERRL, no scleral injection or icterus HENT: normocephalic, atraumatic, good hearing acuity, moist mucous membranes Neck: no tracheal deviation, full range of motion Resp: good air exchange, breathing comfortably with no accessory muscle use, no tactile fremitus CVS: good distal perfusion x 4, no pitting edema GI: Nontender, nondistended, drain in place : no suprapubic tenderness, no CVAT, sexton catheter not present MSK: no clubbing, no cyanosis, no noted contractures of extremities Skin: no noted rashes, petechiae; temperature of skin is appropriate Neuro: moving all extremities without signs of weakness, CN II-XII intact Psych: cooperative, euthymic mood, insight and judgment intact Hospital Course: 83-year-old woman with a medical history of hypertension, hyperlipidemia, severe arthritis, GERD presented for evaluation constipation, fevers, chills. In the emergency room, patient was afebrile, 130/77, heart rate 89, 93% on room air. CBC is remarkable for leukocytosis at 22.9, thrombocytosis to 454. Basic metabolic panel shows BUN 27, creatinine of 1.16. Liver function tests are unremarkable. Lipase was 79. UA shows 2+ protein, 1+ ketones, small leukocyte esterase, 28 white blood cells. Abdomen/pelvis CT shows inflammation changes in the pelvis with at least 2 abscesses measuring 8 cm and 4 cm large. Case was discussed with the emergency room where a decision was made to admit the patient to hospital for further evaluation. Gen. surgery, STITCHING MACHINE OPERATOR consulted. ID following. Patient remains on IV Zosyn. Now status post IR drainage catheter placement. Likely discharge home with PICC line and IV antibiotics. Data reviewed today: WBC 9.28, hemoglobin 11.3, creatinine 1.17 Cultures still only showing gram-negative bacilli Assessment/plan: Multiple pelvic abscesses Leukocytosis secondary to above, improving -Discussed management with Gen. surgery, discharge pending final recommendations from ID, PICC line placement -Patient will go home with drain and follow-up with interventional radiology outpatient for removal -STITCHING MACHINE OPERATOR also following -ID following, continued on IV Zosyn, patient will need PICC line and IV antibiotics at home -Morphine IV discontinued -Tylenol when necessary for fevers -Zofran when necessary for nausea -Blood cultures are NGTD -Fluid cell count - high WBC, high RBC, Cx showing gram-negative bacilli Hypertension - hold home antihypertensives due to lower blood pressures Hyperlipidemia GERD without esophagitis -Continue rest of the home medications Patient is full code DVT prophylaxis: SCDs Objective - Vital Signs Vital signs: Vital Signs Temp 97.8 F 08/21/23 07:28 Pulse 62 08/21/23 07:28 Resp 20 08/21/23 07:28 BP 123/70 08/21/23 07:28 Pulse Ox 93 L 08/21/23 07:28 FiO2 Intake & Output 08/20/23 08/21/23 08/21/23 18:59 06:59 18:59 Intake Total 350 Output Total 400 Balance -50 Intake: Oral 350 Output: Drainage 400 Left Buttock 400 Other: Voiding Method Toilet # Voids 1 2 - Labs CBC & Chem 7: 08/21/23 05:35 08/21/23 05:35 Labs: Abnormal Lab Results - Last 24 Hours (Table) 08/21/23 08/21/23 Range/Units 05:35 05:35 RBC 3.62 L (4.10-5.20) X 10*6/uL Hgb 11.3 L (12.0-15.0) d/dL Hct 36.1 L (37.2-46.3) % MCV 99.7 H (80.0-97.0) FL MCHC 31.3 L (32.0-37.0) d/dL Creatinine 1.17 H (0.52-1.04) mg/dL Glucose 118 H (74-99) mg/dL Microbiology - Last 24 Hours (Table) 08/17/23 12:05 Anaerobic Culture - Preliminary Aspirate 08/17/23 12:05 Gram Stain - Preliminary Aspirate Body Fluid Culture - Preliminary Gram Neg Bacilli
[2023-08-21] MEDS: ATORVASTATIN 80 MG TAB PO SCH (20:51)
[2023-08-22] MEDS: PIPERACILLIN-TAZOBACTAM 3.375 GM in SODIUM CHLORIDE 0.9% 100 ML IVPB SCH ×2 (00:03→08:23)
[2023-08-22] MEDS: ACETAMINOPHEN TAB 325 MG TAB PO PRN (00:11)
[2023-08-22] MEDS ORDERED: LIDOCAINE 1% INJ 10MG/ML (30 ML VIAL-PF) SQ ONE (07:22)
--- NOTE | 2023-08-22 07:34 | P.PCN ---
Date of Procedure: 08/22/23 Preoperative Diagnosis: Multiple abdominal abscesses, need for IV antibiotics Postoperative Diagnosis: same Procedure(s) Performed: left upper extremity ultrasound guided basilic single lumen PICC line placement Pathology: none sent Condition: stable Description of Procedure: After written and informed consent was obtained the patient and all risks, benefits and competitions were described the patient was brought to the [facility] and laid in a supine position with her left arm outstretched on an armboard. The area of the left arm was prepped and draped in usual sterile fashion. Timeout was performed in normal fashion. Utilizing ultrasound the basilic vein was visualized and shown to be compressible without any visible thrombus. Under ultrasound guidance the basilic vein was then cannulated with a micropuncture needle and wire was placed under direct visualization of fluoroscopy. Introducer sheath was then placed. The catheter was measured and cut to the a ppropriate length which was 47 cm. The catheter was then guided through the breakaway sheath and the sheath was removed with good positioning was visualized under fluoroscopy. The catheter was pulled and flushed easily. It was then secured in place in normal fashion. Patient tolerated the procedure well was sent back to his room for recovery.
[2023-08-22] MEDS: MULTIVITAMINS, THERA 1 EACH TAB PO SCH (08:23)
[2023-08-22] MEDS: ASPIRIN 81 MG PO SCH (08:23)
[2023-08-22] MEDS: PANTOPRAZOLE 40 MG TABLET PO SCH (08:23)
[2023-08-22] MEDS: CALCIUM CARB-VIT D 500 MG-5 MCG TAB PO SCH (08:23)
[2023-08-22] MEDS: ASCORBIC ACID 500 MG TAB PO SCH (08:23)
[2023-08-22] MEDS: CYANOCOBALAMIN 500 MCG TAB PO SCH (08:23)
[2023-08-22] MEDS: CHOLECALCIFEROL 125 MCG (5000 IU) TABLET PO SCH (08:23)
--- NOTE | 2023-08-22 09:22 | IR ---
EXAMINATION TYPE: IR cvc insert >=5 years DATE OF EXAM: 08/22/2023 COMPARISON: NONE HISTORY: ABX, 4FR 47CM LT BASILIC PICC, 0.6MIN FT, 0.507 Gycm2 DAP Fluoroscopy was provided to the referring clinician.
--- NOTE | 2023-08-22 11:58 | P.PN ---
Subjective Patient is seen for follow-up for acute kidney injury. Renal function has improved. Left arm PICC line was placed yesterday. No significant complaints today. Objective - Vital Signs Vital signs: Vital Signs Temp 98.4 F 08/22/23 08:10 Pulse 74 08/22/23 08:10 Resp 17 08/22/23 08:10 BP 136/74 08/22/23 08:10 Pulse Ox 96 08/22/23 08:10 FiO2 Intake & Output 08/21/23 08/22/23 08/22/23 18:59 06:59 18:59 Intake Total 700 Output Total 10 Balance -10 700 Weight 81.193 kg Intake: Intake, IV Titration 100 Amount Piperacillin-Tazobactam 3 100 .375 gm In Sodium Chloride 0.9% 100 ml @ 25 mls/hr IVPB Q8HR [facility] Rx# :[id number] Oral 600 Output: Drainage 10 Left Buttock 10 Other: Voiding Method Toilet # Voids 3 - Exam atient is awake, comfortable, no acute distress Alert oriented times he Examination of the heart S1 and S2 Examination the lungs bilateral breath sounds are heard Abdomen is soft no major tenderness noted Seen examination of lower extremities shows no edema PHYSICS TECHNICAL OFFICER exam grossly intact - Labs CBC & Chem 7: 08/21/23 05:35 08/21/23 05:35 Labs: Microbiology - Last 24 Hours (Table) 08/16/23 21:08 Blood Culture - Final Blood 08/17/23 12:05 Gram Stain - Final Aspirate Body Fluid Culture - Final Klebsiella pneumoniae 08/17/23 12:05 Anaerobic Culture - Preliminary Aspirate Assessment and Plan Assessment: 1. Acute kidney injur most likely prerenal with improving renal function. Serum creatinine has decreased from 1.4-1.15 mg/dL. No nephrotoxic agents noted. No obstruction noted on CAT scan 2. Abdominal abscess status post CT-guided drainage of one of the abscesses and currently maintained on IV antibiotics 3. Hypertension currently controlled Plan: Monitor urine output and check post void scan to rule out urine retention. Continue to avoid nephrotoxic agents Continue antibiotics Discussed with patient regarding avoiding NSAIDs
[2023-08-22 12:18] VITALS: BP 143/84; PULSE 62; RESP 18; TEMP 98.1
[2023-08-22] MEDS ORDERED: metroNIDAZOLE 500 MG TAB PO SCH (13:01)
--- NOTE | 2023-08-22 13:09 | P.DS ---
Providers Date of admission: 08/16/23 17:47 Expected date of discharge: 08/22/23 Attending physician: Harry Antonio MD Consults: 08/16/23 17:14 Consult Physician Routine Consulting Provider: Merlyn Estevez Consult Reason/Comments: Pelvic abscesses Do you want consulting provider notified?: Yes Consult Physician Routine Consulting Provider: Priya Guillen Consult Reason/Comments: Abdominal pain. Pelvic abscesses. Do you want consulting provider notified?: Yes 08/16/23 17:59 Consult Physician Routine Consulting Provider: Jessica Thomas Consult Reason/Comments: Pelvic abscesses Do you want consulting provider notified?: Yes 08/20/23 15:59 Consult Physician Routine Consulting Provider: Gina Adler Consult Reason/Comments: GFR <45 for approval of PICC line placement Do you want consulting provider notified?: Yes [facility] care [facility] Hospital Course: Discharge Diagnosis: Multiple pelvic abscesses Leukocytosis secondary to above Hypertension Hyperlipidemia GERD without esophagitis Hospital Course: 83-year-old woman with a medical history of hypertension, hyperlipidemia, severe arthritis, GERD presented for evaluation constipation, fevers, chills. In the emergency room, patient was afebrile, 130/77, heart rate 89, 93% on room air. CBC is remarkable for leukocytosis at 22.9, thrombocytosis to 454. Basic meta bolic panel shows BUN 27, creatinine of 1.16. Liver function tests are unremarkable. Lipase was 79. UA shows 2+ protein, 1+ ketones, small leukocyte esterase, 28 white blood cells. Abdomen/pelvis CT shows inflammation changes in the pelvis with at least 2 abscesses measuring 8 cm and 4 cm large. Gen. surgery, ELECTRONICS ENGINEERING TECHNOLOGIST consulted. ID following. Patient remains on IV Zosyn. Now status post IR drainage catheter placement. Growing klebsiella. Going home with PICC line, 2 weeks of IV Rocephin and 2 weeks of oral Flagyl. Patient will go home with abdominal drain, follow-up with surgery outpatient. Antihypertensives discontinued at the time of discharge due to low normal blood pressure. Can be restarted per primary care. Patient seen and examined at bedside. Vital signs reviewed and stable. Gen: in no apparent distress, resting comfortably in bed Eyes: PERRL, no scleral injection or icterus HENT: normocephalic, atraumatic, good hearing acuity, moist mucous membranes Neck: no tracheal deviation, full range of motion Resp: good air exchange, breathing comfortably with no accessory muscle use, no tactile fremitus CVS: good distal perfusion x 4, no pitting edema GI: Nontender, nondistended, drain in place : no suprapubic tenderness, no CVAT, sexton catheter not present MSK: no clubbing, no cyanosis, no noted contractures of extremities Skin: no noted rashes, petechiae; temperature of skin is appropriate Neuro: moving all extremities without signs of weakness, CN II-XII intact Psych: cooperative, euthymic mood, insight and judgment intact A total of 33 minutes of time were spent preparing this complex discharge summary. Patient was discharged on 08/18/23 at 12:52. Patient Condition at Discharge: Stable Plan - Discharge Summary New Discharge Prescriptions: New cefTRIAXone [Rocephin] 2 gm IVPB Q24HR each metroNIDAZOLE [Flagyl] 500 mg PO TID #42 tab Continue Pantoprazole [Protonix] 40 mg PO QAM Glucosamine/Chondr Ibrahim A Sod [Osteo Bi-Flex Caplet] 2 tab PO DAILY Aspirin 81 mg PO DAILY Cholecalciferol (Vitamin D3) [Vitamin D3 (125 MCG = 5,000 IU)] 125 mcg PO DAILY Rosuvastatin Calcium [Crestor] 40 mg PO HS Calcium Carbonate/Vitamin D3 [Calcium 600-D3 20 mcg (800 Unit)] 2 tab PO DAILY Ascorbic Acid [Vitamin C] 1,000 mg PO DAILY Cyanocobalamin (Vitamin B-12) [Vitamin B-12] 1,000 mcg PO DAILY Multivitamins, Thera [Multivitamin (formulary)] 1 tab PO DAILY Discontinued hydroCHLOROthiazide [Hydrodiuril] 25 mg PO DAILY Losartan [Cozaar] 50 mg PO DAILY Diclofenac Sodium [Voltaren] 75 mg PO DAILY Discharge Medication List Glucosamine/Chondr Ibrahim A Sod [Osteo Bi-Flex Caplet] 2 tab PO DAILY 09/23/19 [History] Pantoprazole [Protonix] 40 mg PO QAM 09/23/19 [History] Cholecalciferol (Vitamin D3) [Vitamin D3 (125 MCG = 5,000 IU)] 125 mcg PO DAILY 08/31/21 [History] Rosuvastatin Calcium [Crestor] 40 mg PO HS 12/15/21 [History] Aspirin 81 mg PO DAILY 06/02/22 [History] Ascorbic Acid [Vitamin C] 1,000 mg PO DAILY 08/16/23 [History] Calcium Carbonate/Vitamin D3 [Calcium 600-D3 20 mcg (800 Unit)] 2 tab PO DAILY 08/16/23 [History] Cyanocobalamin (Vitamin B-12) [Vitamin B-12] 1,000 mcg PO DAILY 08/16/23 [History] Multivitamins, Thera [Multivitamin (formulary)] 1 tab PO DAILY 08/16/23 [History] cefTRIAXone [Rocephin] 2 gm IVPB Q24HR each 08/22/23 [Rx] metroNIDAZOLE [Flagyl] 500 mg PO TID #42 tab 08/22/23 [Rx] Follow up Appointment(s)/Referral(s): [facility], [NON-STAFF] - 1 Week [facility], [REFERRING] - 1 Week Jovanni Taveras DO [Primary Care Provider] - 1-2 days Mauri Araon MD [STAFF PHYSICIAN] - 1 Week Patient Instructions/Handouts: Abscess (GEN) Activity/Diet/Wound Care/Special Instructions: Please see your PCP, and general surgeon. The drain will remain in place till you see your surgeon. It will need to be taken out after another CT scan. Discharge Disposition: HOME WITH HOME HEALTH SERVICES
--- NOTE | 2023-08-22 13:17 | P.PN ---
Subjective Progress Note Date: 08/21/23 Principal diagnosis: Pelvic abscess likely from perforated diverticulitis Patient is a 83-year-old female with a past medical history significant for hypertension hyperlipidemia osteoarthritis reflux presenting to the hospital for evaluation of abdominal pain and constipation, patient had been diagnosed with the plan IS likely related to perforated diverticulitis status post CT-guided drainage one of them. On today's evaluation that is 08/21/2023, the patient continues to be afebrile, the patient is breathing comfortably on room air and denies any chest pain or co ugh, patient denies abdominal pain, and denies any nausea/vomiting or diarrhea Patient did have white count of 9.28, creatinine is 1.17 , cultures are pending Objective - Vital Signs Vital signs: Vital Signs Temp 97.8 F 08/21/23 07:28 Pulse 62 08/21/23 07:28 Resp 20 08/21/23 07:28 BP 123/70 08/21/23 07:28 Pulse Ox 93 L 08/21/23 07:28 FiO2 Intake & Output 08/20/23 08/21/23 08/21/23 18:59 06:59 18:59 Intake Total 350 Output Total 400 Balance -50 Intake: Oral 350 Output: Drainage 400 Left Buttock 400 Other: Voiding Method Toilet # Voids 1 2 - Exam GENERAL DESCRIPTION: An elderly FEmale lying in bed in no distress RESPIRATORY SYSTEM: Unlabored breathing , decreased breath sounds at bases HEART: S1 S2 regular rate and rhythm , ABDOMEN: Soft , no tenderness EXTREMITIES: No edema feet - Labs CBC & Chem 7: 08/21/23 05:35 08/21/23 05:35 Labs: Abnormal Lab Results - Last 24 Hours (Table) 08/21/23 Range/Units 05:35 RBC 3.62 L (4.10-5.20) X 10*6/uL Hgb 11.3 L (12.0-15.0) d/dL Hct 36.1 L (37.2-46.3) % MCV 99.7 H (80.0-97.0) FL MCHC 31.3 L (32.0-37.0) d/dL Microbiology - Last 24 Hours (Table) 08/17/23 12:05 Gram Stain - Preliminary Aspirate Body Fluid Culture - Preliminary Gram Neg Bacilli Assessment and Plan (1) Pelvic abscess Current Visit: Yes Status: Acute Code(s): [id number] - SNOMED Code(s): 592200371 Plan: 1patient presented to hospital with abdominal pain and constipation in this patient with evidence of [address] of the pelvis likely related to perforated diverticulitis and will need to cover for the enteric gram-negative both aerobes and anaerobes 2-patient to continue with Zosyn 3.375 g every 8 hours while waiting for the culture to finalize to determine her discharge antibiotics Dictation was produced using [employer] dictation software. please excuse any grammatical, word or spelling errors. Time with Patient: Less than 30
--- NOTE | 2023-08-22 13:19 | P.PN ---
Subjective Progress Note Date: 08/22/23 Principal diagnosis: Pelvic abscess likely from perforated diverticulitis Patient is a 83-year-old female with a past medical history significant for hypertension hyperlipidemia osteoarthritis reflux presenting to the hospital for evaluation of abdominal pain and constipation, patient had been diagnosed with the plan IS likely related to perforated diverticulitis status post CT-guided drainage one of them. On today's evaluation that is 08/22/2023, the patient remains to be afebrile, the patient is breathing comfortably on room air without the need for supplemental oxygen and denies any shortness of breath, the patient denies having any chest pain or cough, patient denies nausea/vomiting /diarrhea and no abdominal pain, Patient did have white count of 9.28, creatinine is 1.17 as of yesterday , cultures grew Klebsiella Objective - Vital Signs Vital signs: Vital Signs Temp 98.4 F 08/22/23 08:10 Pulse 74 08/22/23 08:10 Resp 17 08/22/23 08:10 BP 136/74 08/22/23 08:10 Pulse Ox 96 08/22/23 08:10 FiO2 Intake & Output 08/21/23 08/22/23 08/22/23 18:59 06:59 18:59 Intake Total 700 Output Total 10 Balance -10 700 Weight 81.193 kg Intake: Intake, IV Titration 100 Amount Piperacillin-Tazobactam 3 100 .375 gm In Sodium Chloride 0.9% 100 ml @ 25 mls/hr IVPB Q8HR [facility] Rx# :[id number] Oral 600 Output: Drainage 10 Left Buttock 10 Other: Voiding Method Toilet # Voids 3 - Exam GENERAL DESCRIPTION: An elderly FEmale lying in bed in no distress RESPIRATORY SYSTEM: Unlabored breathing , decreased breath sounds at bases HEART: S1 S2 regular rate and rhythm , ABDOMEN: Soft , no tenderness EXTREMITIES: No edema feet - Labs CBC & Chem 7: 08/21/23 05:35 08/21/23 05:35 Labs: Microbiology - Last 24 Hours (Table) 08/16/23 21:08 Blood Culture - Final Blood 08/17/23 12:05 Gram Stain - Final Aspirate Body Fluid Culture - Final Klebsiella pneumoniae 08/17/23 12:05 Anaerobic Culture - Preliminary Aspirate Assessment and Plan (1) Pelvic abscess Current Visit: Yes Status: Acute Code(s): [id number] - SNOMED Code(s): 043347687 Plan: 1patient presented to hospital with abdominal pain and constipation in this patient with evidence of [address] of the pelvis likely related to perforated diverticulitis and will need to cover for the enteric gram-negative both aerobes and anaerobes 2-We will discontinue Zosyn and start the patient on Rocephin 2 g daily along with oral Flagyl 500 mg by mouth 3 times a day plan is for 2 weeks of IV and oral antibiotics patient should have repeat CAT scan done on 09/04/2023 before completion of her 2 weeks of antibiotics to make sure resolution of the abscess before discontinuation of antibiotics prescriptions were provided to the prototype engineer manager Dictation was produced using [employer] dictation software. please excuse any grammatical, word or spelling errors. Time with Patient: Less than 30
--- NOTE | 2023-08-22 14:50 | P.PN ---
Subjective Progress Note Date: 08/22/23 CHIEF COMPLAINT: pelvic abscess HISTORY OF PRESENT ILLNESS: Patient is status post CT-guided pelvic abscess drain placement by IR service. Patient denies any abdominal pain. She's had decreased output through her drainage tube. Denies any nausea vomiting. She is having bowel movements. She did receive her PICC line. She is scheduled for discharge with outpatient IV antibiotics. Afebrile. Last WBC normal at 9.28 PHYSICAL EXAM: VITAL SIGNS: Reviewed GENERAL: Well-developed in no acute distress. HEENT: No sclera icterus. Extraocular movements grossly intact. Moist buccal mucosa. Head is atraumatic, normocephalic. Hears conversational speech. No nasal drainage. NECK: Supple without lymphadenopathy. CHEST: Non-labored respirations and equal bilateral excursions. CARDIOVASCULAR: Palpable 2+ radial pulses. ABDOMEN: Soft. Nondistended. Nontender. Drainage is thinner and less today. More yellowish in color MUSCULOSKELETAL: No clubbing or cyanosis. NEUROLOGIC: No focal or lateralizing signs. Cranial nerves II through XII grossly intact. PSYCH: Appropriate affect. Alert and oriented to person, place and time. SKIN: Well perfused. Good skin turgor. ASSESSMENT: 1. Abdominal pain 2. 2 pelvic abscesses possible sequelae of diverticulitis with perforation and abscess formation status post drain placement 3. History of diverticulosis 4. Constipation PLAN: -Patient can be discharged from surgical standpoint with outpatient follow-up in about 3 weeks -Continue antibiotics per infectious disease recommendations -Agree with repeat computed tomography scan outpatient -Patient to be discharged with drainage tube -Patient will need colonoscopy in 6-8 weeks after inciting event Physician Warehouse Shipping Associate note has been reviewed by physician. Signing provider agrees with the documented findings, assessment, and plan of care. Objective - Vital Signs Vital signs: Vital Signs Temp 98.1 F 08/22/23 11:43 Pulse 62 08/22/23 11:43 Resp 18 08/22/23 11:43 BP 143/84 08/22/23 11:43 Pulse Ox 98 08/22/23 11:43 FiO2 Intake & Output 08/21/23 08/22/23 08/22/23 18:59 06:59 18:59 Intake Total 700 Output Total 10 Balance -10 700 Weight 81.193 kg Intake: Intake, IV Titration 100 Amount Piperacillin-Tazobactam 3 100 .375 gm In Sodium Chloride 0.9% 100 ml @ 25 mls/hr IVPB Q8HR [facility] Rx# :[id number] Oral 600 Output: Drainage 10 Left Buttock 10 Other: Voiding Method Toilet # Voids 3 3 # Bowel Movements 1 - Labs CBC & Chem 7: 08/21/23 05:35 08/21/23 05:35 Labs: Microbiology - Last 24 Hours (Table) 08/17/23 12:05 Anaerobic Culture - Final Aspirate 08/16/23 21:08 Blood Culture - Final Blood 08/17/23 12:05 Gram Stain - Final Aspirate Body Fluid Culture - Final Klebsiella pneumoniae
--- NOTE | 2023-08-23 09:36 | CDI ---
Documentation Clarification Form Date: 08/23/2023 From: Emerald Alvarez Admit Date: 08/16/2023 05:47:00 PM Patient Name: Babita Diaz Visit Number: [id number] Discharge Date: 08/22/2023 03:06:00 PM ATTENTION: The Clinical Documentation Specialists (CDI) and [facility] Coding Staff appreciate your assistance in clarifying documentation. Please respond to the clarification below the line at the bottom and electronically sign. The CDI & [facility] Coding staff will review the response and follow-up if needed. Please note: Queries are made part of the Legal Health Record. If you have any questions, please contact the author of this message via ITS. Dr. Harry Antonio Conflicting documentation has been found in the medical record. As attending physician, please provide clarification. Per ID consult, OB-COLLECTION MANAGER consult, Abdominal/pelvic CT, 08/22 PN "Pelvic abscessis possible sequelae of diverticulitis with perforation. Per DCS "Multiple pelvic abscessess" no mention of being due to diverticulitis History/Risk Factors: diverticulosis, constipation Clinical Indicators: Growing Klebsiella Treatment: Drainage of abscess IV Rocephin and oral Flagyl. Discharged with PICC line Please clarify which diagnosis is most appropriate: [ ] Pelvic abscesses due to diverticulitis, bowel related [ ] Pelvic abscesses not due to diverticulitis or bowel related [ ] Other (please specify) [x] Unable to determine MTDD
== END 2023-08-22 15:06 | disposition home health service (06) | DRG 392 ==
LOC: EC 13:00 → 1SOBS 17:47 → 5NMEDONC 08-17 16:21
PROVIDERS: ADMIT Internal Medicine; ATTEND Internal Medicine
PROC: 0W9J30Z Drainage of Pelvic Cavity with Drainage Device, Percutaneous Approach (ICD-10-PCS; 2023-08-17)
PROC: 02HV33Z Insertion of Infusion Device into Superior Vena Cava, Percutaneous Approach (ICD-10-PCS; principal; 2023-08-22 07:30)
DX: K57.20 Diverticulitis of large intestine with perforation and abscess without bleeding (principal); N17.9 Acute kidney failure, unspecified; N73.9 Female pelvic inflammatory disease, unspecified; K59.00 Constipation, unspecified; B96.1 Klebsiella pneumoniae [K. pneumoniae] as the cause of diseases classified elsewhere; D75.839 Thrombocytosis, unspecified; E78.5 Hyperlipidemia, unspecified; H91.90 Unspecified hearing loss, unspecified ear; I10 Essential (primary) hypertension; K21.9 Gastro-esophageal reflux disease without esophagitis; Z78.0 Asymptomatic menopausal state; Z79.82 Long term (current) use of aspirin; Z79.899 Other long term (current) drug therapy; Z86.16 Personal history of COVID-19; Z97.4 Presence of external hearing-aid; Z71.3 Dietary counseling and surveillance; M54.50 Low back pain, unspecified; Z96.662 Presence of left artificial ankle joint; Z88.7 Allergy status to serum and vaccine; Z88.8 Allergy status to other drugs, medicaments and biological substances
CPT/HCPCS: 36415; 36573; 74177; 75989; 76856; 80048; 80053; 81001; 83605; 83690; 83735; 85025; 85610; 87040; 87070; 87075; 87077; 87186; 87205; 89050; 96360; 96361; 96374; 99285

== ENCOUNTER 2023-08-24 11:13 | Day surgery (SDC) | payer MEDICARE ==
[2023-08-24 12:12] VITALS: BP 127/63; PULSE 78; RESP 16; TEMP 97.8
== END 2023-08-24 11:55 | disposition home or self-care (01) ==
LOC: RADPROMAIN 11:13
PROVIDERS: ATTEND Radiology Diagnostic Radiology
DX: Z48.03 Encounter for change or removal of drains (principal)
CPT/HCPCS: 99213

== ENCOUNTER → 2023-08-31 | Day surgery (SDC) | payer MEDICARE ==
[2023-08-31 12:39] VITALS: BP 111/72; PULSE 79; RESP 18; TEMP 97.9
== END ==
LOC: RADPROMAIN 10:01
PROVIDERS: ATTEND Radiology Diagnostic Radiology
DX: Z48.03 Encounter for change or removal of drains (principal)
CPT/HCPCS: 99213

== ENCOUNTER → 2023-09-04 | Outpatient (CLI) | payer MEDICARE ==
[2023-09-04 12:15] LABS: African American GFR (CKD) 48 (>60 ml/min/1.73 sqM); Blood Urea Nitrogen 25 mg/dL (7-17); Non-African American GFR(CKD) 42 (>60 ml/min/1.73 sqM)
--- NOTE | 2023-09-04 13:51 | CT ---
EXAMINATION TYPE: CT abdomen pelvis w con CT DLP: 1429.9 mGycm, Automated exposure control for dose reduction was used. DATE OF EXAM: 09/04/2023 1:43 PM COMPARISON: 08/16/2023 CLINICAL INDICATION:Female, 83 years old with history of K65.1 PERITONEAL ABSCESS; f/u peritoneal abs cess TECHNIQUE: Axial CT of the ;CT abdomen pelvis w con;Sagittal and coronal reformats were created on a separate workstation. Contrast used:80 mL of Isovue 300 with IV Contrast, (none if empty) Oral contrast used: with Oral Contrast (none if empty) FINDINGS: LOWER CHEST: The heart is enlarged for size. Mitral valve annular cusp patient's. ABDOMEN LIVER: Unremarkable GALLBLADDER AND BILE DUCTS: Unremarkable. PANCREAS: Unremarkable. SPLEEN: Unremarkable. ADRENAL GLANDS: Unremarkable. KIDNEYS AND URETERS: No evidence of hydronephrosis or renal calculus. The ureters are unremarkable. PELVIS BLADDER: Unremarkable REPRODUCTIVE: The uterus appears flattened with abscess and positioned immediately above it while he is anteverted. The ovaries are not well visualized. ABDOMEN & PELVIS STOMACH AND BOWEL: Interval decrease in size of the 2 abscesses seen on prior no longer demonstrate o rganizing fluid denotes contain foci. Foci of gas noted which is somewhat linear extension towards: S eries 3 image 66 and series 3 image 68. 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 Drainage catheter is in place just posterior to the uterus. No remaining fluid around the catheter or within the abscesses. There remains some inflammation changes around the sigmoid colon in the area of prior diverticulitis. PERITONEUM/RETROPERITONEUM: No evidence of pneumoperitoneum or free fluid. VASCULATURE: Mild atherosclerotic calcifications are present throughout the abdominal aorta and its b ranches. No evidence of aortic aneurysm. MUSCULOSKELETAL: No acute osseous abnormalities. Mild disc degeneration changes are present throughou t the thoracolumbar spine. LYMPH NODES: No gross evidence for lymphadenopathy. SOFT TISSUE/ABDOMINAL WALL: Bilateral fat-containing inguinal hernias. IMPRESSION: Interval decrease in size of the 2 abscesses seen on prior, now without organizing fluid collection v isualized the 2 pockets fluid noted demonstrate gas only. These findings could represent gas-filled b wilfred-ending fistula and today's exam. No drainable fluid around the catheter are within the abdomen a nd pelvis in today's exam.
== END | disposition home or self-care (01) ==
LOC: RADCTMAIN 11:29
PROVIDERS: ATTEND Internal Medicine Infectious Disease
DX: K65.1 Peritoneal abscess (principal)
CPT/HCPCS: 82565; 84520; 74177; 36415; Q9967

== ENCOUNTER 2023-09-07 09:44 | Day surgery (SDC) | payer MEDICARE ==
[2023-09-07 10:41] VITALS: BP 115/78; PULSE 80; RESP 18; TEMP 97.9
== END 2023-09-07 10:37 | disposition home or self-care (01) ==
LOC: RADPROMAIN 09:44
PROVIDERS: ATTEND Internal Medicine Infectious Disease
DX: Z48.03 Encounter for change or removal of drains (principal)
CPT/HCPCS: 99213

== ENCOUNTER → 2023-11-02 | Outpatient (CLI) | payer MEDICARE ==
--- NOTE | 2023-11-02 13:29 | P.PAINPG ---
PQRS Measure Charge Sheet Comment: A 83 yr old female with a history of severe and chronic LBP secondary to lumbar DDD and spondylosis with facet arthropathy without myelopathy presents today for evaluation. Pt had a BL RFA of the L4-L5, L5-S1 in Jan 2022 where she experienced 80% pain relief x 1 yr s/p procedure. Pain level is provoked at 8/10 in intensity, constant, localized in the center lumbar spine, predominantly axial, heavy in character without shooting pain. Pain is provoked by standing/ walking for periods of 10 min or more. Pain is alleviated with PT in 2020, physician guided stretches every morning since 2020, chiropractic treatments Q2Mo for yrs which ended in Fall 2021 because they were ineffective, use of a cane for ambulatory assistance, topical, sitting, reclining and rest. Oswestry axial pain score of 18. Interventional pain procedures completed include GAIL L2-L3, BL RFA L3-L5 x1 (Jan 2022), R RFA L2-L4 x2 (Aug 2022, Jun 2023), R TFESI L3-L4 x1 Patient is currently on Diclofenac tabs, ASA Patient denies any side effects of the medication(s), denies excessive drowsiness or sleepiness, denies suicidal ideation and reports that the current pain medication is helping to control the pain and improve activities of daily living. Patient denies any motor or sensory deficits. Patient denies any fever or night sweats, denies any change in the bowel movements or urination. Physical Examination: -Constitutional: Cooperative. Not in acute distress . - Neurologic: Cranial nerve II to XII intact. No focal neurological deficits. - Psychatric: Alert & oriented x 3. Matching mood & appropriate affect. Judgment and insight intact. - Musculoskeletal: Cervical spine: Muscle bulk/ tone/ strength in the bilateral upper extremities normal Vertebral body tenderness to palpation over Spurling test positive Distraction test positive Facet loading test positive TTP Thoracic spine Muscle bulk / tone/ strength in the bilateral paraspinal muscles normal Vertebral body tender to palpation over Facet loading test positive TTP Lumbar spine: Motor bulk/ tone/ strength lower extremities , thigh and legs : 5/5 Deep tendon reflexes : Normal Knee Jerk. Normal Ankle Jerk . Vertebral body tenderness to palpation over Romero Test positive Lumbar Facet Loading Test positive over BL L4-L5, L5-S1 Straight Leg Raise: positive at 30 degrees right side/ left side Gaenslen's Test positive Sacral spine : Severe tenderness over the Sacroiliac joint: right side / left side Range of motion: Flexion of the lumbar spine <60 degrees Range of motion: Extension of the lumbar spine <20 degrees Gaenslen's Test positive right side / left side Jennifer test: positive right side / left side Thigh Thrust Test positive right side / left side Sacral Thrust Test positive right side / left side Assessment and plan: Chronic LBP secondary to lumbar DDD, spondylosis with facet arthropathy without myelopathy Recommendation of BL RFA L4-L5, L5-S1. Pt exhibited sufficient and substantial pain relief w prior RFA of L4-L5, L5-S1 from Jan 2022. Risks, benefits of procedure discussed and pt verbalized understanding. Admits to anticoagulant use or medical history of diabetes. Protocol for discontinuation/ continuation of medications diya procedure discussed. Minimal anesthesia provided, if clinically indicated, consisting of Versed and Fentanyl. All questions answered. I have spent less than 30 minutes on patient care today. Dr Hilario was available by phone for the evaluation of this patient. The time was used to review the medical records including relevant urine studies and Prescription history (MAPs), review of the available imaging, evaluation and examination of the patient, coordination of care with the medical staff and if applicable referring physicians, as well as creation of the medical record PQRS Narrative: Smoking Status Never smoker Hx Alcohol Use (MH) Yes: 1 DRINK PER DAY Home Medications: Ambulatory Orders Glucosamine/Chondr Ibrahim A Sod [Osteo Bi-Flex Caplet] 2 tab PO DAILY 09/23/19 Pantoprazole [Protonix] 40 mg PO QAM 09/23/19 Cholecalciferol (Vitamin D3) [Vitamin D3 (125 MCG = 5,000 IU)] 125 mcg PO DAILY 08/31/21 Rosuvastatin Calcium [Crestor] 40 mg PO HS 12/15/21 Aspirin 81 mg PO DAILY 06/02/22 Ascorbic Acid [Vitamin C] 1,000 mg PO DAILY 08/16/23 Calcium Carbonate/Vitamin D3 [Calcium 600-D3 20 mcg (800 Unit)] 2 tab PO DAILY 08/16/23 Cyanocobalamin (Vitamin B-12) [Vitamin B-12] 1,000 mcg PO DAILY 08/16/23 Multivitamins, Thera [Multivitamin (formulary)] 1 tab PO DAILY 08/16/23 cefTRIAXone [Rocephin] 2 gm IVPB Q24HR each 08/22/23 metroNIDAZOLE [Flagyl] 500 mg PO TID #42 tab 08/22/23 Controlled Substance Measures - Controlled Substance Measures Is patient prescribed a controlled substance at discharge?: No
[2023-11-02 14:13] VITALS: BP 104/59; PULSE 82; RESP 16; TEMP 96.9
== END ==
LOC: PNWHC3 11:15
PROVIDERS: ATTEND Specialist
DX: M47.817 Spondylosis without myelopathy or radiculopathy, lumbosacral region (principal); M51.37 Other intervertebral disc degeneration, lumbosacral region; G89.29 Other chronic pain; Z88.7 Allergy status to serum and vaccine; Z88.1 Allergy status to other antibiotic agents; Z79.82 Long term (current) use of aspirin
CPT/HCPCS: 99211

== ENCOUNTER → 2023-12-19 | Outpatient (CLI) | payer MEDICARE ==
[2023-12-19 11:57] LABS: African American GFR (CKD) 43 (>60 ml/min/1.73 sqM); Blood Urea Nitrogen 35 mg/dL (7-17); Non-African American GFR(CKD) 37 (>60 ml/min/1.73 sqM)
--- NOTE | 2023-12-19 13:48 | CT ---
EXAMINATION TYPE: CT abdomen pelvis w con CT DLP: 1226.1 mGycm, Automated exposure control for dose reduction was used. 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 Sagittal and coronal reformats were created on a [employer] workstation. Contrast used:70 mL of Isovue 300 with IV Contrast, (none if empty) Oral contrast used: with Oral Contrast (none if empty) FINDINGS: LOWER CHEST: Mild bibasilar scarring or subsegmental atelectasis. Mild cardiomegaly. Heavy calcificat ion of the mitral valve. Mild calcification of the proximal aorta. Mild coronary artery calcification s. ABDOMEN LIVER: Unremarkable GALLBLADDER AND BILE DUCTS: Unremarkable gallbladder. No biliary ductal dilatation. PANCREAS: Unremarkable. SPLEEN: Unremarkable. ADRENAL GLANDS: Unremarkable. KIDNEYS AND URETERS: Kidneys enhance symmetrically. Both appear somewhat lobular and mildly atrophic. Mildly prominent bilateral extrarenal pelves. Ureters are nondilated. PELVIS BLADDER: Unremarkable REPRODUCTIVE: Please see stomach and bowel section. ABDOMEN & PELVIS STOMACH AND BOWEL: Contrast is seen throughout the stomach, small bowel, proximal colon without evide nce of obstruction. There are several small duodenal diverticula suggested. The appendix appears with in normal limits. There is moderate stool throughout the colon, greatest proximally. Multiple distal colonic diverticula are again seen. Interval improved appearance of inflammatory changes around the sigmoid region and interval removal of the previously seen percutaneous drainage catheter posterior t o the uterus. Small foci of gas are seen along the lower uterus posteriorly, in the region of the vag dawit. Farther cranially, there is a small teardrop shaped gas-filled structure which extends along the posterior aspect of the uterus, terminating just cranial to the fundus as a bulbous 1.3 cm gas colle ction which may represent blind-ending fistula. Overall this appears improved in size, previously 2.2 cm, and what seemed to be a gas-filled fistulous communication with the proximal sigmoid colon towar ds the left is no longer seen but there is small linear soft tissue density in this area, and also sm all linear soft tissue densities extending to the distal sigmoid on the right, which may represent pe rsistent but improved fistulous tracts. Similarly, another gas-filled structure previously seen on th e left appears improved with resolution of the gas but small residual linear soft tissue density in t he area, this may represent improved colo-colonic fistula extending in the region from the mid sigmoi d to the upper rectum, refer series 4 image 61. No sizable fluid collections are currently seen to chavez ggest drainable abscesses. PERITONEUM/RETROPERITONEUM: No evidence of pneumoperitoneum or free fluid. VASCULATURE: Moderate atherosclerotic calcifications are present throughout the abdominal aorta and i ts branches. No evidence of aortic aneurysm. Portal veins are enhancing. Splenic vein is patent. LYMPH NODES: No gross evidence for lymphadenopathy. SOFT TISSUE/ABDOMINAL WALL: Small fat-containing left inguinal hernia. MUSCULOSKELETAL: Moderate degenerative changes of the lumbar spine and hips. Levocurvature of the lum bar spine. IMPRESSION: 1. Interval removal of the previously seen percutaneous drainage catheter in the pelvis posterior to the uterus. 2. Distal colonic diverticula redemonstrated with improved appearance of inflammatory changes around the sigmoid region. 3. Interval decrease in size of gas filled structures within the pelvis suspected to be related to f istulas. 4. 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 What seemed to be a gas-filled fistulous c ommunication with the proximal sigmoid colon towards the left is no longer seen but there is small li near soft tissue density in this area, and also small linear soft tissue densities extending to the d istal sigmoid on the right, which may represent persistent but improved fistulous tracts. A fistulous communication with the uterus may also be present. 5. Another gas-filled structure previously seen in the left posterior pelvis appears improved, with resolution of the gas but small residual linear soft tissue density in the area. This may represent i mproved colo-colonic fistula. 6. No sizable fluid collections are currently seen to suggest drainable abscesses.
[2023-12-19 16:47] LABS: HCT 38.9 % (37.2-46.3); HGB 12.4 g/dL (12.0-15.0); MCH 31.3 pg (27.0-32.0); MCHC 31.9 g/dL (32.0-37.0); MCV 98.2 FL (80.0-97.0); Mean Platelet Volume 11.4 FL (9.5-12.2); NRBC Per 100 WBC 0 X 10*3/uL (0.00-0.01); Platelet Count 271 X 10*3/uL (140-440); RBC 3.96 X 10*6/uL (4.10-5.20); RDW 13.2 % (11.5-14.5); WBC 8.29 X 10*3/uL (4.50-10.00)
[2023-12-19 16:54] LABS: BUN/Creat Ratio 22.77 Ratio (12.00-20.00); Blood Urea Nitrogen 29.6 mg/dL (9.0-27.0); Calcium 9.6 mg/dL (8.7-10.3); Carbon Dioxide 25.6 mmol/L (21.6-31.8); Chloride 99 mmol/L (96-109); Glucose 98 mg/dL (70-110); Potassium 4.1 mmol/L (3.5-5.5); Sodium 138 mmol/L (135-145)
== END | disposition home or self-care (01) ==
LOC: RADCTMAIN 10:33
PROVIDERS: ATTEND Surgery
DX: Z01.818 Encounter for other preprocedural examination (principal); Z48.03 Encounter for change or removal of drains; K57.30 Diverticulosis of large intestine without perforation or abscess without bleeding; N82.4 Other female intestinal-genital tract fistulae; K57.80 Diverticulitis of intestine, part unspecified, with perforation and abscess without bleeding; N85.8 Other specified noninflammatory disorders of uterus; M79.89 Other specified soft tissue disorders
CPT/HCPCS: 86900; 86901; 80048; 82565; 84520; 85027; 86850; 83036; 74177; 36415 ×2; Q9967

== ENCOUNTER 2024-02-22 07:50 | Day surgery (SDC) | payer MEDICARE ==
[2024-02-21 09:36] VITALS: BMI 31.6
[2024-02-22] MEDS: LACTATED RINGERS 1,000 ML IV SCH (08:37)
[2024-02-22 08:42] VITALS: TEMP 97.5
[2024-02-22] MEDS ORDERED: MIDAZOLAM 2 MG/2 ML VIAL ONE (09:22)
[2024-02-22] MEDS ORDERED: methylPREDNISolone ACETATE 40 MG/ML 1 ML VIAL ONE (09:22)
[2024-02-22] MEDS ORDERED: ROPIVACAINE 5MG/ML 20ML VIAL ONE (09:22)
[2024-02-22] MEDS ORDERED: fentaNYL (PF) 50 MCG/ML 2 ML AMP ONE (09:22)
--- NOTE | 2024-02-22 09:49 | P.PCN ---
Date of Procedure: 02/22/24 Procedure(s) Performed: PREOPERATIVE DIAGNOSIS: 1-Lumbar Spondylosis with Facet Arthropathy without myelopathy. 2- Lumber degenerative disc disease. POSTOPERATIVE DIAGNOSIS: 1- Lumbar Spondylosis with Facet Arthropathy without myelopathy. 2- Lumber degenerative disc disease. PROCEDURES : Bilateral Radiofrequency thermocoagulation, L3 , L4 , and L5 medial branch, with fluoroscopic guidance (fluoroscopy images available in the radiology department) ( to denervate the facet joint at bilateral L4-5 ,and L5-S1 levels ). ANESTHESIA: Moderate sedation with intravenous versed 1 mg and fentaneyl 50 mcg, and local infiltration with Ropivacaine 0.5 % . Sedation start time 09:22, end time 09:47 EBL: Minimal PROCEDURE INDICATION: The patient with low back pain secondary to lumbar facet arthropathy who had more than 50% relief of her pain with previous diagnostic lumbar medial branch block with bupivacaine. PROCEDURE DESCRIPTION / TECHNIQUE: The patient was seen and identified in the preoperative area. Risks, benefits, complications, including but not limited to risk of infection ,bleeding , allergic reactions to the medications and no complete pain releife , and alternatives were discussed with the patient, the patient agreed to proceed with the procedure and signed the consent. IV was started. Vital signs remained stable throughout the procedure. Patient was taken to the OR and time out was completed. The patient was placed in the prone position on the procedure table. The lumber area was prepped and draped in the usual sterile fashion. . Vital signs were closely monitored during the procedure .IV sedation was used during the procedure to decrease patients anxiety. Using AP and then oblique fluoroscopy, the ``eye of the Jose dog corresponding to the connection between the superior and transverse articular processes of right L3, L4, and L5 were identified, marked, and localized with 1% lidocaine. Subsequently, a 18 -jd radiofrequency cannula with a 10- mm active tip was advanced guided by fluoroscopy to each of the``eyes of the Jose dog at right L3, L4, and L5. Each site then underwent sensory testing at 50 Hz and 0 to 1 volt and motor testing at 2.5 Hz and 0 to 3 volt with local stimulation, but no radicular symptoms down the legs. Thereafter each sites underwent radiofrequency thermocoagulation at 80 degrees celsius for 90 seconds after injecting 0.5 ml of PF Ropivacaine 1ml, then after the thermocoagulation done , 1 ml of the block solution containing Depo-Medrol 20 mg and 3 ml of Ropivacaine 0.5% was injected at the right L3 , L4 , and L5 , levels after negative aspiration of CSF and blood and with no paresthesias. Cannulas were retracted while injecting lidocaine 1% until the needle is out. The same procedure was repeated at the level of Left L3, L4, and L5 levels. At the end of the procedure, the skin was cleansed and bandages were applied. COMPLICATIONS: No acute complications. DISPOSITION / PLANS: The patient was placed in a supine position and transferred to the recovery area in a stable condition for observation and was discharged from the recovery room after meeting discharge criteria. Home discharge instructions given to the patient by the staff. The patient was reexamined prior to discharge. The patient will schedule a follow up in the clinic in 2-4 weeks.
[2024-02-22] MEDS: LACTATED RINGERS 1,000 ML IV ONE (09:56)
[2024-02-22 10:12] VITALS: RESP 18
[2024-02-22 10:59] VITALS: BP 134/58; PULSE 61
--- NOTE | 2024-02-22 19:01 | FL ---
EXAMINATION TYPE: FL guided pain mgmt statistic DATE OF EXAM: 02/22/2024 FLUOROSCOPY Fluoroscopy time of 22 seconds was used during lumbar radiofrequency ablation. 6 image/s document/s the procedure. DAP .77546 mGycm2.
== END 2024-02-22 10:38 | disposition home or self-care (01) ==
LOC: ORPAIN 07:50
PROVIDERS: ATTEND Specialist
DX: M51.36 Other intervertebral disc degeneration, lumbar region (principal); M47.816 Spondylosis without myelopathy or radiculopathy, lumbar region; Z88.1 Allergy status to other antibiotic agents; Z88.7 Allergy status to serum and vaccine; Z79.82 Long term (current) use of aspirin
CPT/HCPCS: 64636 ×2; 64635; 99152; J2250; J3010; J2795; J1010

== ENCOUNTER → 2024-04-03 | Outpatient (CLI) | payer MEDICARE ==
[2024-04-03 12:34] VITALS: BP 127/71; PULSE 58; RESP 16
--- NOTE | 2024-04-03 15:18 | P.PAINPG ---
PQRS Measure Charge Sheet Comment: A 83 yr old female with a history of severe and chronic LBP secondary to lumbar DDD and spondylosis with facet arthropathy without myelopathy presents today for evaluation s/p BL RFA of the L3-5. Pt states she experienced % pain relief s/p procedure. Pain level is provoked at 8 /10 in intensity, constant, localized in the center lumbar spine, predominantly axial, heavy in character w occasional R hip shooting pain. Pain is provoked by standing/ walking for periods of 10 min or more. Pain is alleviated with PT in 2020, physician guided stretches every morning since 2020, chiropractic treatments Q2Mo for yrs which ended in Fall 2021 because they were ineffective, use of a cane for ambulatory assistance, topical, sitting, reclining and rest. Oswestry axial pain score of 20. Interventional pain procedures completed include GAIL L2-L3, BL RFA L3-L5 x1 (Jan 2022), R RFA L2-L4 x2 (Aug 2022, Jun 2023), R TFESI L3-L4 x1 Patient is currently on Diclofenac tabs, ASA Patient denies any side effects of the medication(s), denies excessive drowsiness or sleepiness, denies suicidal ideation and reports that the current pain medication is helping to control the pain and improve activities of daily living. Patient denies any motor or sensory deficits. Patient denies any fever or night sweats, denies any change in the bowel movements or urination. Physical Examination: -Constitutional: Cooperative. Not in acute distress . - Neurologic: Cranial nerve II to XII intact. No focal neurological deficits. - Psychatric: Alert & oriented x 3. Matching mood & appropriate affect. Judgment and insight intact. - Musculoskeletal: Cervical spine: Muscle bulk/ tone/ strength in the bilateral upper extremities normal Vertebral body tenderness to palpation over Spurling test positive Distraction test positive Facet loading test positive TTP Thoracic spine Muscle bulk / tone/ strength in the bilateral paraspinal muscles normal Vertebral body tender to palpation over Facet loading test positive TTP Lumbar spine: Motor bulk/ tone/ strength lower extremities , thigh and legs : 5/5 Deep tendon reflexes : Normal Knee Jerk. Normal Ankle Jerk . Vertebral body tenderness to palpation over L3 Romero Test positive R L2-L3 Lumbar Facet Loading Test positive over BL L4-L5, L5-S1 Straight Leg Raise: positive at 30 degrees right side/ left side Gaenslen's Test positive Sacral spine : Severe tenderness over the Sacroiliac joint: right side / left side Range of motion: Flexion of the lumbar spine <60 degrees Range of motion: Extension of the lumbar spine <20 degrees Gaenslen's Test positive right side / left side Jennifer test: positive right side / left side Thigh Thrust Test positive right side / left side Sacral Thrust Test positive right side / left side Assessment and plan: Chronic LBP secondary to lumbar DDD, spondylosis with facet arthropathy without myelopathy Recommendation of R paramedian GAIL L2-L3 #1 and medication management. Risks, benefits of procedure discussed and pt verbalized understanding. Admits to anticoagulant use or medical history of diabetes. Protocol for discontinuation/ continuation of medications diya procedure discussed. Recommendation of medication management. Tyl #3 #30 w 1 RF. Use, side effects, adverse reactions, safe storage discussed. Opiate/ narcotic agreement signed 04/03/24. All questions answered. I have spent less than 30 minutes on patient care today. Dr Hilario was available by phone for the evaluation of this patient. The time was used to review the medical records including relevant urine studies and Prescription history (MAPs), review of the available imaging, evaluation and examination of the patient, coordination of care with the medical staff and if applicable referring physicians, as well as creation of the medical record PQRS Narrative: Smoking Status Never smoker Hx Alcohol Use (MH) Yes: 1 DRINK PER DAY Home Medications: Ambulatory Orders Glucosamine/Chondr Ibrahim A Sod [Osteo Bi-Flex Caplet] 1 tab PO BID 09/23/19 Pantoprazole [Protonix] 40 mg PO QAM 09/23/19 Cholecalciferol (Vitamin D3) [Vitamin D3 (125 MCG = 5,000 IU)] 125 mcg PO DAILY 08/31/21 Rosuvastatin Calcium [Crestor] 40 mg PO HS 12/15/21 Aspirin 81 mg PO DAILY 06/02/22 Ascorbic Acid [Vitamin C] 1,000 mg PO DAILY 08/16/23 Calcium Carbonate/Vitamin D3 [Calcium 600-D3 20 mcg (800 Unit)] 1 tab PO BID 08/16/23 Cyanocobalamin (Vitamin B-12) [Vitamin B-12] 1,000 mcg PO DAILY 08/16/23 Multivitamins, Thera [Multivitamin (formulary)] 1 tab PO DAILY 08/16/23 Diclofenac Sodium [Voltaren] 75 mg PO DAILY 02/21/24 Losartan [Cozaar] 50 mg PO DAILY 02/21/24 hydroCHLOROthiazide 25 mg PO DAILY 02/21/24 Controlled Substance Measures - Controlled Substance Measures Is patient prescribed a controlled substance at discharge?: Yes When asked, does pt state using other controlled substances?: Yes If prescribed controlled substance>3 days was MAPS reviewed?: Yes If Rx opioid, was Start Talking consent form obtained?: Yes Was information provided regarding opioid addiction?: Yes
== END ==
LOC: PNWHC3 11:59
PROVIDERS: ATTEND Specialist
DX: M51.36 Other intervertebral disc degeneration, lumbar region (principal); M47.816 Spondylosis without myelopathy or radiculopathy, lumbar region; Z88.7 Allergy status to serum and vaccine; Z88.8 Allergy status to other drugs, medicaments and biological substances
CPT/HCPCS: 99211

== ENCOUNTER 2024-04-18 11:12 | Day surgery (SDC) | payer MEDICARE ==
[2024-04-16 15:46] VITALS: BMI 31.6
[~2024-04-18 11:12] MED LIST changes: -LIDOCAINE 1% (10MG/ML) FOR IV START INTRADERMA PRN
[2024-04-18 12:40] VITALS: TEMP 97.9
[2024-04-18] MEDS ORDERED: methylPREDNISolone ACETATE 80 MG/ML 1 ML VIAL ONE (13:11)
[2024-04-18] MEDS ORDERED: IOPAMIDOL M300 15ML VIAL ONE (13:11)
[2024-04-18] MEDS ORDERED: ROPIVACAINE 5MG/ML 20ML VIAL ONE (13:11)
--- NOTE | 2024-04-18 13:34 | P.PCN ---
Description of Procedure: PREOPERATIVE DIAGNOSIS: 1- Lumbar Degenerative Disc Diseases 2-Lumbar spondylosis with Facet arthropathy without myelopathy. 3-lumbar spinal stenosis POSTOPERATIVE DIAGNOSIS: 1-lumbar degenerative disc disease. 2-lumbar spondylosis with facet arthropathy without myelopathy. 3-lumbar spinal stenosis. PROCEDURE Injection of radio contrast material into L3-4 interspace, interpretation of epidurogram, injection of steroid at L3-4 epidural space under fluoroscopic guidance. ANESTHESIA: Lidocaine 1% subcutaneously. In OR continuous pulse ox, EKG, blood pressure and verbal communication was maintained with the patient. EBL: Minimal PROCEDURE INDICATION: Before the procedure were discussed with the patient detailed procedure, alternatives, complications including infection, bleeding, nerve damage, paralysis all of which could be permanent. Patient understands and all questions were answered. PROCEDURE DESCRIPTION : After getting consent, patient in OR in prone position. Back was prepped with chlorhexidine and draped in sterile fashion. Initial attempt to put Touhy needle at L2-3 interspace was unsuccessful because of extreme rotation of lumbar spine. After injecting 10 mL of 1% lidocaine subcutaneously, a 20-gauge Tuohy needle was introduced at L3-4 interspace with loss of resistance technique using a syringe filled with air. Negative CSF, negative blood, negative paresthesia. Needle position was confirmed with AP and lateral view of the fluoroscope. After repeat negative aspiration 2 mL of Omnipaque 200 water soluble contrast was injected. Contrast was noted in the epidural space. No contrast was noted into intrathecal or intravascular space. After repeat negative aspiration 6 mL solution was injected intermittently which consists of 5 mL of preservative-free normal saline mixed with 1 mL of 80 mg Depo-Medrol. Needle was withdrawn intact. Skin was cleansed and Band-Aids was applied. DISPOSITION / PLANS: The patient tolerated the procedure well. No complication. The patient was placed in a supine position and transferred to the recovery area in a stable condition for observation. There was no evidence of lower extremity motor or sensory deficit after the procedure. Patient was discharged from the recovery room after meeting discharge criteria. Home discharge instructions were given to the patient by the staff. The patient was reexamined prior to discharge. The patient will schedule a follow up in the clinic in 2-4 weeks.
[2024-04-18 13:35] VITALS: PULSE 59; RESP 18
[2024-04-18 13:53] VITALS: BP 145/72
--- NOTE | 2024-04-18 13:57 | FL ---
Fluoroscopy INDICATION: Pain FINDINGS: Fluoroscopy time: 27.2 seconds. Total dose area product (DAP) in uGy*m?, mGy*cm? (or similar): 0.39456 Images obtained: 3. IMPRESSION: 1. Documentation of fluoroscopy.
== END 2024-04-18 14:07 | disposition home or self-care (01) ==
LOC: ORPAIN 11:12
PROVIDERS: ATTEND Pain Medicine Interventional Pain Medicine
DX: M48.061 Spinal stenosis, lumbar region without neurogenic claudication (principal); M47.816 Spondylosis without myelopathy or radiculopathy, lumbar region; M51.36 Other intervertebral disc degeneration, lumbar region; Z79.82 Long term (current) use of aspirin; Z88.8 Allergy status to other drugs, medicaments and biological substances; Z88.7 Allergy status to serum and vaccine
CPT/HCPCS: 62323; Q9967; J2795; J1010

== ENCOUNTER → 2024-06-05 | Outpatient (CLI) | payer MEDICARE | LOC: PNWHC3 11:18 | DX: M41.86 Other forms of scoliosis, lumbar region | CPT/HCPCS: 99211 ==

== ENCOUNTER → 2024-06-26 | Outpatient (CLI) | payer MEDICARE | END | disposition home or self-care (01) | LOC: LABWHC1 10:05 | PROVIDERS: ATTEND Orthopaedic Surgery | DX: Z01.812 Encounter for preprocedural laboratory examination (principal); Z22.322 Carrier or suspected carrier of Methicillin resistant Staphylococcus aureus; M17.11 Unilateral primary osteoarthritis, right knee | CPT/HCPCS: 87070 ==

== ENCOUNTER 2024-08-12 06:03 | Day surgery (SDC) | payer MEDICARE ==
--- NOTE | 2024-08-11 12:17 | HP ---
HISTORY AND PHYSICAL DATE OF SURGERY: 08/12/2024. HISTORY OF PRESENT ILLNESS: Babita Diaz is an 84-year-old patient seen with symptomatic right knee osteoarthritis. We discussed options regarding treatment. She has elected to proceed with right total knee arthroplasty. Consents obtained. Medical clearance was provided by Dr. Taveras's office. PAST MEDICAL HISTORY: Hypertension, hyperlipidemia. PAST SURGICAL HISTORY: Right shoulder arthroscopy, left ankle surgery. DAILY MEDICATIONS: 1. Losartan. 2. Rosuvastatin. 3. Multivitamins. ALLERGIES: Singulair. SOCIAL HISTORY: She denies tobacco use. PHYSICAL EVALUATION OF THE RIGHT KNEE: Range of motion is -2/3 to 130 degrees. Mild effusion. Tenderness, medial joint line. Crepitus, medial patellofemoral compartments with range of motion. Ligaments stable. Hip rotation is without pain. Distal neurovascular exam is intact. IMAGING STUDIES: Radiographs of the right knee reveal severe osteoarthritic changes. IMPRESSION: 1. Right knee osteoarthritis. 2. Hypertension. 3. Hyperlipidemia. PLAN: Right total knee arthroplasty. MMODL / IJN: [id number] /
[~2024-08-12 06:03] MED LIST changes: -LACTATED RINGERS 1,000 ML IV SCH; +TRANEXAMIC 1,000 MG/100ML-NACL 1,000 MG in SALINE 1 100ML.BAG IVPB PRN
[2024-08-12] MEDS ORDERED: LIDOCAINE 1% (10MG/ML) FOR IV START INTRADERMA PRN (06:16)
[2024-08-12] MEDS ORDERED: fentaNYL (PF) 50 MCG/ML 2 ML AMP IVP PRN (06:16)
[2024-08-12] MEDS ORDERED: MIDAZOLAM 2 MG/2 ML VIAL IV PRN (06:16)
[2024-08-12] MEDS: DEXAMETHASONE SOD PHOSPHATE 4 MG/ML 1 ML VIAL IV ONE (06:54)
[2024-08-12] MEDS: ONDANSETRON 4 MG/2 ML VIAL IVP ONE (06:54)
[2024-08-12] MEDS: MELOXICAM 7.5 MG TAB PO PRN (06:54)
[2024-08-12] MEDS: ACETAMINOPHEN TAB 500 MG TAB PO PRN (06:54)
[2024-08-12] MEDS: LACTATED RINGERS 1,000 ML IV SCH (06:55)
[2024-08-12] MEDS: IV FLUID CONTINUATION 1,000 ML IV ONE ×2 (06:57→10:15)
[2024-08-12] MEDS: MIDAZOLAM 2 MG/2 ML VIAL IVP ONE (06:58)
[2024-08-12] MEDS ORDERED: ePHEDrine 50 MG/ML 1 ML VIAL ONE (07:26)
[2024-08-12] MEDS ORDERED: HYDROmorphone (PF) 1 MG/ML ONE (07:26)
[2024-08-12] MEDS ORDERED: MIDAZOLAM 2 MG/2 ML VIAL ONE (07:26)
[2024-08-12] MEDS ORDERED: fentaNYL (PF) 50 MCG/ML 2 ML AMP ONE (07:26)
[2024-08-12] MEDS ORDERED: LIDOCAINE 1% INJ 10MG/ML (20 ML MDV) ONE (07:26)
[2024-08-12] MEDS ORDERED: ROPIVACAINE 5 MG/ML 30 ML VIAL ONE (07:26)
[2024-08-12] MEDS ORDERED: TRANEXAMIC 1,000 MG/100ML-NACL PREMIX BAG ONE (07:26)
[2024-08-12] MEDS ORDERED: PROPOFOL 10 MG/ML 20 ML VIAL IV ONE (07:26)
[2024-08-12] MEDS ORDERED: DEXAMETHASONE SOD PHOSPHATE 4 MG/ML 1 ML VIAL ONE (07:26)
[2024-08-12] MEDS: ceFAZolin 1,000 MG in SODIUM CHLORIDE 0.9% 1,000 ML IRRIGATION ONE (07:55)
[2024-08-12] MEDS ORDERED: NALOXONE 0.4 MG/ML 1 ML VIAL IV PRN (09:14)
[2024-08-12] MEDS ORDERED: ONDANSETRON 4 MG/2 ML VIAL IVP PRN (09:14)
[2024-08-12] MEDS ORDERED: HYDROmorphone 0.5 MG/0.5 ML SYRINGE IVP PRN ×2 (09:14)
--- NOTE | 2024-08-12 09:14 | P.OP ---
Date of Procedure: 08/12/24 Preoperative Diagnosis: Right knee osteoarthritis Postoperative Diagnosis: Right knee osteoarthritis Procedure(s) Performed: Right total knee arthroplasty Implants: 1. DePuy attune size 5 narrow right cruciate retaining cemented femur 2. DePuy attune size 4 fixed-bearing cemented tibial baseplate 3. DePuy attune size 5 fixed-bearing cruciate retaining 10 mm polyethylene tibial insert 4. DePuy attune 35 mm all polyethylene cemented patella Anesthesia: GETA, spinal Surgeon: Romero Penny Shovel Log Loader Operator #1: Onel Montenegro Estimated Blood Loss (ml): 40 Pathology: none sent Condition: stable Disposition: PACU Indications for Procedure: 84-year-old patient seen with symptomatic right knee osteoarthritis. After having treatment options discussed, she elected to proceed with total knee arthroplasty. Operative Findings: See description of procedure Description of Procedure: Patient was taken to the operative suite after having an adductor canal catheter placed by the department of anesthesia. Patient underwent a spinal anesthetic by the department of anesthesia. Patient was given preoperative IV intake antibiotics and TXA. A well-padded tourniquet was placed about the right lower extremity. At this point the patient seen to be moving the extremity and anesthesia converted her to a general anesthetic. The lower extremity was then prepped and draped in the normal sterile orthopedic fashion. The extremity was elevated, a tourniquet was insufflated to 300. A standard anterior incision was made sharply through skin. Dissection was taken down through the subcutaneous soft tissues down to the extensor mechanism. A medial arthrotomy was performed, patella was everted and knee was flexed. There was advanced osteoarthritis noted. I introduced my distal intramedullary femoral drill. I then introduced the distal femoral cutting jig. Jarred YOUSIF secured the cutting jig with 2 pins. I held retractors in position while Jarred YOUSIF performed the distal femoral resection through the guide area we now removed her distal femoral cutting guide. We now placed our 4-in-1 femoral cutting block and positioned and it was secured with 2 pins by Jarred YOUSIF while I held the block in position. The distal femoral finishing was now completed. A proximal tibial cutting guide was positioned. I held the guide in the appropriate position with both hands well Jarred YOUSIF inserted stabilizing pins into the guide. Proximal tibial cut was made. We now placed a trial femoral component into position, along with an appropriate size tibial tray and insert. We now took the knee through range of motion and had full extension good flexion and good overall soft tissue balance noted. The patella was everted and stabilized with 2 towel clips held by Jarred YOUSIF while I performed a flush with patellar quad tendon utilizing a fresh sawblade. We templated the patella, appropriate drill holes were made. An appropriate trial patella was positioned, knee was taken through full range of motion with the patella tracking very nicely. The trial patella was removed. Drill holes were made through the femoral component. All trial components were removed after marking off the appropriate rotation of the tibia. Retractors were now positioned along the proximal tibia. An appropriate keel punch was made with the appropriate size tibial guide by myself on Jarred YOUSIF assisted by holding retractors. At this point appropriate size implants were chosen and opened. The joint was irrigated copiously with pulse lavage mechanical irrigation. The wound was irrigated with pulse lavage mechanical irrigation. We mixed antibiotic methylmethacrylate. We placed the knee into flexion. We placed multiple retractors assisted by Jarred YOUSIF to expose the proximal tibia. Once the methyl methacrylate was ready, the tibial component was cemented into place removing any excess methylmethacrylate form by both myself and Jarred YOUSIF. The femoral component was cemented into place removing the removing any excess methylmethacrylate performed by both myself and Jarred YOUSIF. We then inserted the appropriate size polyethylene tibial insert. We made sure that it was locked into position. We took the knee into full extension, and then back in a flexion making sure we had removed any excess methylmethacrylate. The patellar component was then cemented down and secured with clamp. Excess methylmethacrylate removed. We kept the knee in full extension, patellar clamp in position until methylmethacrylate had hardened. Once it had hardened the patellar clamp was removed. The knee was taken through full range of motion. The patella tracked nicely. There was good soft tissue balancing. The tourniquet was now released. Additional hemostasis was achieved via electrocautery. A second gram of TXA was given. The wound again was irrigated with pulse lavage mechanical irrigation. The extensor mechanism was repaired with Ethibond suture. We checked the repair with range of motion and it was stable. The subcutaneous soft tissues were repaired with Vicryl in layers. The skin was approximated with pernio/Dermabond. Sterile dressings were applied followed by loose web roll and Dennis bandage. The patient was transferred to a bed, and taken to recovery in stable and satisfactory condition. Jarred YOUSIF assisted with this complex procedure.
[2024-08-12] MEDS: ROPIVACAINE 1,100 MG, SODIUM CHLORIDE 0.9% 500 ML 330 ML, EMPTY PAIN BALL 1 EACH MISCELLANE PRN (09:33)
[2024-08-12] MEDS: HYDROmorphone 0.5 MG/0.5 ML SYRINGE IVP PRN (09:49)
[2024-08-12] MEDS: droPERidol 5 MG/2 ML VIAL IVP ONE (09:50)
--- NOTE | 2024-08-12 10:22 | XR ---
EXAMINATION TYPE: XR knee limited RT DATE OF EXAM: 08/12/2024 10:17 AM INDICATION: Patient age:Female; 84 years old; Reason for study: Evaluation for Postop abnormality and alignment; H. COMPARISON: Right knee radiographs 05/21/2024 TECHNIQUE: The Right knee(s) was examined in frontal and lateral projections. FINDINGS: Status post total knee arthroplasty changes with hardware in appropriate alignment and in tact. No evidence of fracture. Subcutaneous lucencies and lucencies within the joint consistent with surgical changes. IMPRESSION: Status post total knee arthroplasty changes with hardware intact and appropriate alignment. No fractu res identified. [facility], , 08/12/2024 10:19 AM
[2024-08-12] MEDS: HYDROcodone/APAP 5-325MG 1 EACH TAB PO PRN (14:45)
--- NOTE | 2024-08-12 15:26 | P.ANPRN ---
Procedure Note - Anesthesia - Nerve Block Performed Right Adductor Canal Infusion Time Out Performed: Yes Date of Procedure: 08/12/24 Procedure Start Time: 06:58 Procedure Stop Time: 07:10 Location of Patient: PreOp Indication: Acute Post-Operative Pain, Requested by Surgeon Sedation Type: Sedate with meaningful contact maintained Preparation: Sterile Prep, Sterile Dressing Position: Supine Catheter: Indwelling Needle Types: Pajunk Needle Gauge: 21 Ultrasound used to visualize needle placement: Yes Ultrasound used to observe medication spread: Yes Blood Aspirated: No Pain Paresthesia on Injection Noted: No Resistance on Injection: Normal Image Stored and Saved: Yes Events: Uneventful and Well Tolerated (Ropivacaine 0.5% 20 cc plus dexamethasone 4 mg)
--- NOTE | 2024-08-12 15:27 | P.ANPRN ---
Procedure Note - Anesthesia - Nerve Block Performed Right [place] Single Time Out Performed: Yes Date of Procedure: 08/12/24 Procedure Start Time: 07:11 Procedure Stop Time: :14 Location of Patient: PreOp Indication: Acute Post-Operative Pain, Requested by Surgeon Sedation Type: Sedate with meaningful contact maintained Preparation: Sterile Prep Position: Supine Needle Types: Pajunk Needle Gauge: 21 Ultrasound used to visualize needle placement: Yes Ultrasound used to observe medication spread: Yes Blood Aspirated: No Pain Paresthesia on Injection Noted: No Resistance on Injection: Normal Image Stored and Saved: Yes Events: Uneventful and Well Tolerated (Ropivacaine 0.5% 20 cc plus dexamethasone 4 mg)
--- NOTE | 2024-08-12 15:39 | P.CONS ---
History of Present Illness - Reason for Consult Consult date: 08/12/24 - History of Present Illness 84 year old F with PMH of HTN, GERD, HLD presents to [facility] for elective surgery. She underwent Right total knee arthroplasty with Dr. Penny. [facility] [place] Physicians consulted for medical management of this patient. Patient currently reports 3/10 pain in her R knee. Has not urinated yet. Has no passed gas or had a bowel movement. No other concerns. General: non toxic, no distress, appears at stated age Derm: warm, dry Head: atraumatic, normocephalic, symmetric Eyes: EOMI, no lid lag, anicteric sclera Mouth: no lip lesion, mucus membranes moist Cardiovascular: S1 S2 reg. No murmurs, rubs, gallops Lungs: Clear to auscultation bilaterally, no accessory muscle use Ext: no gross muscle atrophy, no edema, no contractures Neuro: no focal neuro deficits Psych: Alert, oriented, appropriate affect Based on my assessment of this patient, this patient meets a high complexity level of care. HTN: Losartan 50 mg PO QD. HCTZ 25 mg PO QD. GERD: Protonix 40 mg PO QD. HLD: Crestor 40 mg PO QHS. CODE STATUS: FULL CODE DVT Prophylaxis: ASA GI Prophylaxis: Protonix Designated medical POA if patient is not able to make medical decisions for themselves: I have reviewed the following loss prevention consultant notes: OR report. I have reviewed the results of the following tests: I have ordered the following tests: I have discussed the care of this patient with the following independent historian: I have independently interpreted the following test below: I have discussed the management of this patient with the following physician: Past Medical History Past Medical History: GERD/Reflux, Hearing Disorder / Deafness, Hyperlipidemia, Hypertension, Osteoarthritis (OA) Additional Past Medical History / Comment(s): Lower back pain. Hx COVID 07/2021. Bilateral hearing aid use., hx. pelvic abscesses last year w/PICC line & A/B tx. History of Any Multi-Drug Resistant Organisms: None Reported Past Surgical History: Bowel Resection, Joint Replacement, Orthopedic Surgery, Tubal Ligation Additional Past Surgical History / Comment(s): ORIF left ankle, left ankle replacement, polyp removed from vocal cords, pain clinic procedure, right shoulder rotator cuff repair., total knee 08/12/24 Past Anesthesia/Blood Transfusion Reactions: No Reported Reaction Smoking Status: Never smoker - Past Family History Father Family Medical History: Cancer Mother Additional Family Medical History / Comment(s): Aneurysm. Medications and Allergies Home Medications Medication Instructions Recorded Confirmed Type Glucosamine/Chondr Ibrahim A Sod [Osteo 1 tab PO BID 09/23/19 08/07/24 History Bi-Flex Caplet] Pantoprazole [Protonix] 40 mg PO QAM 09/23/19 08/12/24 History Cholecalciferol (Vitamin D3) 5,000 mcg PO QAM 08/31/21 08/07/24 History [Vitamin D3 (125 MCG = 5,000 IU)] Rosuvastatin Calcium [Crestor] 40 mg PO HS 12/15/21 08/12/24 History Aspirin 81 mg PO QAM 06/02/22 08/07/24 History Ascorbic Acid [Vitamin C] 1,000 mg PO QAM 08/16/23 08/07/24 History Calcium Carbonate/Vitamin D3 1 tab PO BID 08/16/23 08/07/24 History [Calcium 600-D3 20 mcg (800 Unit)] Cyanocobalamin (Vitamin B-12) 1,000 mcg PO QAM 08/16/23 08/07/24 History [Vitamin B-12] Multivitamins, Thera [Multivitamin 1 tab PO QAM 08/16/23 08/07/24 History (formulary)] Diclofenac Sodium [Voltaren] 75 mg PO QAM 02/21/24 08/07/24 History Losartan [Cozaar] 50 mg PO QAM 02/21/24 08/12/24 History hydroCHLOROthiazide 25 mg PO QAM 02/21/24 08/12/24 History Allergies Allergy/AdvReac Type Severity Reaction Status Date / Time montelukast [From [facility]] Allergy Rash/Hives Verified 08/07/24 14:11 pneumococcal vaccine Allergy arm Verified 08/07/24 14:11 swelled up & Rash Physical Exam Vitals: Vital Signs Temp Pulse Pulse Resp BP Pulse Ox 08/12/24 14:28 97.6 F 68 16 142/66 92 L 08/12/24 12:30 66 16 139/63 96 08/12/24 12:00 68 16 140/65 96 08/12/24 11:30 64 16 144/65 97 08/12/24 11:15 66 16 144/65 94 L 08/12/24 11:00 73 16 149/67 95 08/12/24 10:45 65 16 164/67 95 08/12/24 10:30 67 16 162/66 95 08/12/24 10:15 69 16 148/63 96 08/12/24 09:58 65 16 159/69 98 08/12/24 09:43 64 16 155/67 95 08/12/24 09:28 98.2 F 68 16 177/74 97 08/12/24 07:23 60 16 108/57 98 08/12/24 06:35 97.6 F 62 16 128/63 96 Intake and Output 08/12/24 08/12/24 08/12/24 06:59 14:59 22:59 Intake Total 200 826 Output Total 40 Balance 200 786 Intake: IV 200 826 Output: Estimated Blood Loss 40 Other: Weight 79.7 kg 79.7 kg
[2024-08-12] MEDS: SODIUM CHLORIDE 0.9% 1,000 ML IV SCH (16:03)
[2024-08-12] MEDS: SENNOSIDES-DOCUSATE SODIUM 1 EACH TAB PO SCH (21:43)
[2024-08-12] MEDS: ATORVASTATIN 80 MG TAB PO SCH (21:43)
[2024-08-12] MEDS: ASPIRIN 325 MG TAB PO SCH (21:43)
[2024-08-13] MEDS: LOSARTAN 50 MG TAB PO SCH (08:10)
[2024-08-13] MEDS: PANTOPRAZOLE 40 MG TABLET PO SCH (08:10)
[2024-08-13] MEDS: hydroCHLOROthiazide 25 MG TAB PO SCH (08:11)
[2024-08-13] MEDS: MULTIVITAMINS, THERA 1 EACH TAB PO SCH (08:15)
--- NOTE | 2024-08-13 08:35 | P.PN ---
Progress Note - Text Adequate analgesia. No complications from anesthesia.
[2024-08-13 09:29] LABS: Basophils # (A) 0.01 X 10*3/uL (0.00-0.10); Basophils % (A) 0.1 %; Eosinophils # (A) 0 X 10*3/uL (0.04-0.35); Eosinophils % (A) 0 %; HCT 34.1 % (37.2-46.3); HGB 11.1 g/dL (12.0-15.0); Lymphocytes # (A) 0.96 X 10*3/uL (0.90-5.00); Lymphocytes % (A) 8.2 %; MCH 31.8 pg (27.0-32.0); MCHC 32.6 g/dL (32.0-37.0); MCV 97.7 FL (80.0-97.0); Mean Platelet Volume 12.2 FL (9.5-12.2); Monocytes # (A) 0.59 X 10*3/uL (0.20-1.00); NRBC Per 100 WBC 0 X 10*3/uL (0.00-0.01); Neutrophils # (A) 10.15 X 10*3/uL (1.80-7.70); Neutrophils % (A) 86.3 %; Platelet Count 233 X 10*3/uL (140-440); RBC 3.49 X 10*6/uL (4.10-5.20); RDW 12.8 % (11.5-14.5); WBC 11.76 X 10*3/uL (4.50-10.00)
--- NOTE | 2024-08-13 12:18 | P.PN ---
Subjective Progress Note Date: 08/13/24 Principal diagnosis: Status post right total knee arthroplasty Patient evaluated at bedside, her daughter is also present. Patient is been doing rather well so far, she did ambulate with physical therapy with the assistance of the walker. Patient was able to do the stairs today. she denies any headaches, lightheadedness, chest pain or shortness of breath Objective - Vital Signs Vital signs: Vital Signs Temp 98.7 F 08/13/24 07:16 Pulse 68 08/13/24 07:16 Resp 15 08/13/24 07:16 BP 102/58 08/13/24 07:16 Pulse Ox 94 L 08/13/24 07:16 FiO2 Intake & Output 08/12/24 08/13/24 08/13/24 18:59 06:59 18:59 Intake Total 826 600 Output Total 40 Balance 786 600 Weight 79.7 kg Intake: IV 826 Intake, IV Titration 600 Amount Sodium Chloride 0.9% 1, 600 000 ml @ 50 mls/hr IV . Q20H [facility] Rx#:[id number] Output: Estimated Blood Loss 40 Other: # Voids 1 2 - Exam Right lower extremity: Incision is clean, dry, and intact. The foam dressing is in good condition. There is minimal soft tissue swelling and ecchymosis surrounding the medial and lateral aspects of the incision. Calf is soft, no tenderness with palpation. Plantar flexion, dorsiflexion, EHL, FHL are intact. Sensory exam to light touch throughout the extremity is intact, dorsal pedis pulses 2+. - Labs CBC & Chem 7: 08/13/24 03:19 Labs: Abnormal Lab Results - Last 24 Hours (Table) 08/13/24 Range/Units 03:19 WBC 11.76 H (4.50-10.00) X 10*3/uL RBC 3.49 L (4.10-5.20) X 10*6/uL Hgb 11.1 L (12.0-15.0) g/dL Hct 34.1 L (37.2-46.3) % MCV 97.7 H (80.0-97.0) FL Immature Gran # 0.05 H (0.00-0.04) X 10*3/uL Neutrophils # 10.15 H (1.80-7.70) X 10*3/uL Eosinophils # 0 L (0.04-0.35) X 10*3/uL Assessment and Plan Assessment: Postoperative day #1 status post right total knee arthroplasty Plan: Pain control, continue current medications DVT prophylaxis, continue current medications Wound care instructions were again discussed, this to include On-Q pain catheter and surgical dressing Continue PT/OT Medical recommendations appreciated Discharge planning: Plan is for patient to be discharged home, would like to keep patient in hospital 1 additional night prior to that Time with Patient: Less than 30
--- NOTE | 2024-08-13 13:05 | P.PN ---
Subjective Progress Note Date: 08/13/24 Patient seen this morning. She states that she is having multiple joint pains and is from her arthritis. Patient states that she is taking pain medications. Patient states that she will go to physical therapy and was available to walk up the stairs. Patient states that she is doing well. 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 HCTZ 25 mg PO QD. GERD: Protonix 40 mg PO QD. HLD: Crestor 40 mg PO QHS. I completed the discharge medication reconciliation I did stop the aspirin 81 mg p.o. daily as anticipate patient will be discharged on aspirin 325 mg p.o. twice daily for DVT prophylaxis. Medicine team will sign off. Objective - Vital Signs Vital signs: Vital Signs Temp 98.0 F 08/13/24 12:13 Pulse 73 08/13/24 12:13 Resp 15 08/13/24 12:13 BP 130/71 08/13/24 12:13 Pulse Ox 97 08/13/24 12:13 FiO2 Intake & Output 08/12/24 08/13/24 08/13/24 18:59 06:59 18:59 Intake Total 826 600 Output Total 40 Balance 786 600 Weight 79.7 kg Intake: IV 826 Intake, IV Titration 600 Amount Sodium Chloride 0.9% 1, 600 000 ml @ 50 mls/hr IV . Q20H [facility] Rx#:[id number] Output: Estimated Blood Loss 40 Other: # Voids 1 2 - Labs CBC & Chem 7: 08/13/24 03:19 Labs: Abnormal Lab Results - Last 24 Hours (Table) 08/13/24 Range/Units 03:19 WBC 11.76 H (4.50-10.00) X 10*3/uL RBC 3.49 L (4.10-5.20) X 10*6/uL Hgb 11.1 L (12.0-15.0) g/dL Hct 34.1 L (37.2-46.3) % MCV 97.7 H (80.0-97.0) FL Immature Gran # 0.05 H (0.00-0.04) X 10*3/uL Neutrophils # 10.15 H (1.80-7.70) X 10*3/uL Eosinophils # 0 L (0.04-0.35) X 10*3/uL
[2024-08-13] MEDS: HYDROmorphone 0.5 MG/0.5 ML SYRINGE IVP PRN (21:55)
[2024-08-14 02:43] VITALS: TEMP 98.4
[2024-08-14] MEDS: HYDROcodone/APAP 5-325MG 1 EACH TAB PO PRN (04:01)
[2024-08-14 08:00] VITALS: BP 139/79; PULSE 61; RESP 15
--- NOTE | 2024-08-14 11:38 | P.DS ---
Providers Date of admission: 08/12/2024 Expected date of discharge: 08/14/24 Attending physician: Romero Penny Consults: 08/12/24 09:14 Consult Physician Routine Consulting Provider: Abram Valentino Consult Reason/Comments: Medical management Do you want consulting provider notified?: Yes Primary care physician: [facility] Course: Date of admission: 08/12/2024 Date of discharge: 08/14/2024 Admission diagnosis: Status post right total knee arthroplasty Discharge diagnosis: Same Attending physician: Dr. Penny Surgical procedures: Right total knee arthroplasty Brief history: Patient is a 84-year-old female with a history of progressive primary right knee osteoarthritis. At this point patient has failed conservative treatment measures and has opted to proceed with a elective right total knee arthroplasty. Hospital course: Details of patient's surgery can be found in operative report. Patient tolerated the procedure well and was subsequently transported to orthopedic floor. Patient's orthopeidc and medical care was provided daily. Patient had daily laboratory tests performed for evaluation of overall blood counts. Patient had daily physical therapy to include strengthening range of motion as well as education with walker ambulation. Patient was treated with aspirin for their postoperative DVT prophylaxis during their inpatient stay. Patient was noted to have a relatively uneventful postoperative course. Patient reported satisfactory pain control with oral pain medications by postoperative day 0. Patient showed satisfactory progress with physical therapy. Patient moved steadily through the program and had no difficulty meeting the goals by postoperative day 2. Given patient's otherwise satisfactory course and having met physical therapy goals, plan is to discharge patient home on postoperative day 2. Discharge condition/disposition: Patient will be discharged home in stable condition. Discharge medications: Instructions are given on resumption of patient's normal daily medications per primary care recommendation, in addition patient will be prescribed [place] 5/323, Senna-S. Discharge instructions: 1. Wound care and infection precautions, keep incision dry and covered while showering, no lotions, creams, moisturizers. No soaking, tubs, pools, hottubs. Do not scrub over the incision. 2. Weight-bear as tolerated with walker / cane until follow-up. 3. Ice and elevate when necessary. Do not exceed 20 minutes per hour with ice pack. 4. Utilize compression sleeve until seen at first follow up appointment. 5. Visiting nursing care. 6. Home physical therapy including home CPM. 7. Pain meds and anticoagulants per prescription. 8. Pain medication has potential to cause constipation. Increase oral fluid and fiber intake. Contact primary care provider if you have not had a bowel movement within 48 hours after discharge 9. No anti-inflammatory medication until discussed at first post operative visit, this including Motrin, Aleve, Mobic, Diclofenac. 10. Follow up in office at 2 weeks postop with Jarred Montenegro PA-C/Olayinka Yu 11. Follow up with your primary care doctor 7-10 days after discharge. 12. Contact [facility] with any questions, . Procedures: Right total knee arthroplasty Patient Condition at Discharge: Good Plan - Discharge Summary Discharge Rx Participant: No New Discharge Prescriptions: New HYDROcodone/APAP 5-325MG [[place] 5-325] 1 tab PO Q4HR PRN #42 tab PRN Reason: Pain Aspirin [Adult Low Dose Aspirin EC] 81 mg PO BID #60 tab Sennosides/Docusate Sodium [Senna-S 8.6-50 mg Tablet] 2 each PO DAILY PRN #30 tablet PRN Reason: Constipation Continue Pantoprazole [Protonix] 40 mg PO QAM Glucosamine/Chondr Ibrahim A Sod [Osteo Bi-Flex Caplet] 1 tab PO BID Losartan [Cozaar] 50 mg PO QAM Cholecalciferol (Vitamin D3) [Vitamin D3 (125 MCG = 5,000 IU)] 5,000 mcg PO QAM Rosuvastatin Calcium [Crestor] 40 mg PO HS Calcium Carbonate/Vitamin D3 [Calcium 600-D3 20 mcg (800 Unit)] 1 tab PO BID Ascorbic Acid [Vitamin C] 1,000 mg PO QAM Cyanocobalamin (Vitamin B-12) [Vitamin B-12] 1,000 mcg PO QAM Multivitamins, Thera [Multivitamin (formulary)] 1 tab PO QAM Diclofenac Sodium [Voltaren] 75 mg PO QAM hydroCHLOROthiazide 25 mg PO QAM Discontinued Aspirin 81 mg PO QAM Discharge Medication List Glucosamine/Chondr Ibrahim A Sod [Osteo Bi-Flex Caplet] 1 tab PO BID 09/23/19 [History] Pantoprazole [Protonix] 40 mg PO QAM 09/23/19 [History] Cholecalciferol (Vitamin D3) [Vitamin D3 (125 MCG = 5,000 IU)] 5,000 mcg PO QAM 08/31/21 [History] Rosuvastatin Calcium [Crestor] 40 mg PO HS 12/15/21 [History] Ascorbic Acid [Vitamin C] 1,000 mg PO QAM 08/16/23 [History] Calcium Carbonate/Vitamin D3 [Calcium 600-D3 20 mcg (800 Unit)] 1 tab PO BID 08/16/23 [History] Cyanocobalamin (Vitamin B-12) [Vitamin B-12] 1,000 mcg PO QAM 08/16/23 [History] Multivitamins, Thera [Multivitamin (formulary)] 1 tab PO QAM 08/16/23 [History] Diclofenac Sodium [Voltaren] 75 mg PO QAM 02/21/24 [History] Losartan [Cozaar] 50 mg PO QAM 02/21/24 [History] hydroCHLOROthiazide 25 mg PO QAM 02/21/24 [History] Aspirin [Adult Low Dose Aspirin EC] 81 mg PO BID #60 tab 08/14/24 [Rx] HYDROcodone/APAP 5-325MG [[place] 5-325] 1 tab PO Q4HR PRN #42 tab 08/14/24 [Rx] Sennosides/Docusate Sodium [Senna-S 8.6-50 mg Tablet] 2 each PO DAILY PRN #30 tablet 08/14/24 [Rx] Follow up Appointment(s)/Referral(s): [facility] [NON-STAFF] - As Needed (Continuous Passive Motion knee machine) [facility], [NON-STAFF] - As Needed Onel Montenegro PAC [PHYSICIAN LIVE AMMUNITION INSPECTOR] - 08/28/24 3:50 pm Activity/Diet/Wound Care/Special Instructions: Orthopedic Discharge Instructions: 1. Wound care and infection precautions, keep incision dry and covered while showering, no lotions, creams, moisturizers. No soaking, pools, hot tubs. Do not scrub over incision. 2. Weight-bear as tolerated with walker / cane until follow-up. 3. Ice and elevate when necessary. Do not exceed 20 minutes per hour with ice pack. 4. Utilize compression sleeve until seen at first follow up appointment. 5. Pain meds and anticoagulants per prescription. 6. Pain medication has potential to cause constipation. Increase oral fluid and fiber intake. Contact primary care provider if you have not had a bowel movement within 48 hours after discharge. 7. No anti-inflammatory medication until discussed at first post operative visit, this including Motrin, Aleve, Mobic, Diclofenac. 8. Follow up in office at 2 weeks postop with Jarred Montenegro PA-C/Olayinka Kong PA-C 9. Follow up with your primary care doctor 7-10 days after discharge. 10. Contact [facility] with any questions, . Pain catheter instructions: 1. Ok to remove catheter on 08/15/2024 Wound care instructions: 1. Okay to remove surgical dressing as of 08/21/2024 2. Okay to shower directly over the incision after removal of dressing Discharge Disposition: HOME WITH HOME HEALTH SERVICES
--- NOTE | 2024-08-14 11:39 | P.PN ---
Subjective Progress Note Date: 08/14/24 Principal diagnosis: Status post right total knee arthroplasty Patient evaluated at bedside, her daughter is also present. Patient is feeling a lot better today with regards to pain control and also her ambulation. She is eager to be discharged home. She denies any headaches, lightheadedness, chest pain or shortness of breath Objective - Vital Signs Vital signs: Vital Signs Temp 98.4 F 08/14/24 07:29 Pulse 61 08/14/24 07:29 Resp 15 08/14/24 07:29 BP 139/79 08/14/24 07:29 Pulse Ox 95 08/14/24 07:29 FiO2 Intake & Output 08/13/24 08/14/24 08/14/24 18:59 06:59 18:59 Other: # Voids 4 3 - Exam Right lower extremity: Incision is clean, dry, and intact. The foam dressing is in good condition. There is minimal soft tissue swelling and ecchymosis surrounding the medial and lateral aspects of the incision. Calf is soft, no tenderness with palpation. Plantar flexion, dorsiflexion, EHL, FHL are intact. Sensory exam to light touch throughout the extremity is intact, dorsal pedis pulses 2+. - Labs CBC & Chem 7: 08/13/24 03:19 Assessment and Plan Assessment: Postoperative day #2 status post right total knee arthroplasty Plan: Pain control, Monument 5 mg / 325 mg for discharge, also utilize senna S at disch arge DVT prophylaxis, aspirin 81 mg twice a day for 30 days Wound care instructions were again discussed, this to include On-Q pain catheter and surgical dressing Continue PT/OT Medical recommendations appreciated Discharge planning: Discharge home today Time with Patient: Less than 30
== END 2024-08-14 14:39 | disposition home health service (06) ==
LOC: OR 06:03 → 4SSUR 09:21 → OR 08-14 14:39
PROVIDERS: ATTEND Orthopaedic Surgery
DX: M17.11 Unilateral primary osteoarthritis, right knee (principal); E78.5 Hyperlipidemia, unspecified; I10 Essential (primary) hypertension; Z88.1 Allergy status to other antibiotic agents
CPT/HCPCS: 27447; 97116; 97161; 64999; 64448; 85025; 73560; C1776; C1713 ×2; C1751; J2250; J1100; J0690 ×2; J2405; J2003; J3010; J1171 ×3; J2795; J2704; J1790

== ENCOUNTER → 2025-05-22 | Outpatient (CLI) | payer MEDICARE ==
[2025-05-22 14:09] LABS: African American GFR (CKD) 36 (>60 ml/min/1.73 sqM); Blood Urea Nitrogen 48 mg/dL (7-17); Non-African American GFR(CKD) 31 (>60 ml/min/1.73 sqM)
--- NOTE | 2025-05-22 15:41 | CT ---
EXAMINATION TYPE: CT abdomen pelvis wo con CT DLP: 942 mGycm, Automated exposure control for dose reduction was used. DATE OF EXAM: 05/22/2025 3:28 PM COMPARISON: CT abdomen pelvis 08/16/2023 CLINICAL INDICATION:Female, 85 years old with history of R10.84 abd pain, K43.2 INCISIONAL HERNIA; a bdominal pain, incisional hernia TECHNIQUE: Standard CT of the abdomen and pelvis following the administration of oral contrast. Cor onal and sagittal reformats were performed. Limited evaluation due to lack of intravenous contrast. FINDINGS: LOWER CHEST: Bibasilar linear scarring and/or atelectasis. No focal consolidation or pleural effusion . Mild cardiomegaly without pericardial effusion. Dense mitral annulus calcifications. Mild coronary artery calcifications. ABDOMEN LIVER: Unremarkable noncontrast appearance GALLBLADDER AND BILE DUCTS: Unremarkable noncontrast appearance PANCREAS: Unremarkable noncontrast appearance SPLEEN: Unremarkable noncontrast appearance ADRENAL GLANDS: Unremarkable noncontrast appearance. KIDNEYS AND URETERS: No evidence of hydronephrosis or renal calculus. PELVIS BLADDER: Underdistended but grossly unremarkable. REPRODUCTIVE: Unremarkable noncontrast appearance. ABDOMEN & PELVIS STOMACH AND BOWEL: Couple of diverticula involving the second and third portions of the duodenum.Ente cee contrast reaches the cecum. Postsurgical changes at the rectosigmoid junction with an anastomosis . A few scattered diverticula of the distal sigmoid colon. No evidence of bowel obstruction. PERITONEUM: No evidence of pneumoperitoneum or free fluid. VASCULATURE: Moderate atherosclerotic calcifications are present throughout the abdominal aorta and i ts branches. No evidence of aortic aneurysm. MUSCULOSKELETAL: No acute osseous abnormalities. 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 LYMPH NODES: No gross evidence for lymphadenopathy. SOFT TISSUE/ABDOMINAL WALL: Broad-based complex right anterior lower abdominal hernia containing nono bstructive small bowel with mesenteric vessels. Defect measures grossly 6.1 cm in diameter with the a ppearance of the hernia. The hernia sac measures up to 12.9 cm in size. Small fat filled left in the hernia. IMPRESSION: 1. Right lower quadrant large ventral wall broad-based complex hernia containing nonobstructing smal l bowel and small mesenteric vessels. Additional small fat filled left annular hernia. 2. Postsurgical changes of the sigmoid colon with anastomosis and few diverticula. No evidence for ac amaya diverticulitis. [facility], , 05/22/2025 3:38 PM
== END | disposition home or self-care (01) ==
LOC: RADCTMAIN 13:20
PROVIDERS: ATTEND Surgery
DX: K43.2 Incisional hernia without obstruction or gangrene (principal)
CPT/HCPCS: 36415; 74176; 82565; 84520

== ENCOUNTER 2025-05-25 22:32 | Emergency (ER) | payer MEDICARE ==
[2025-05-25 23:04] VITALS: RESP 16; TEMP 98.5
--- NOTE | 2025-05-26 00:13 | ED ---
General Adult HPI - General Chief complaint: Abdominal Pain Stated complaint: abd pain Time Seen by Provider: 05/25/25 23:21 Source: patient Mode of arrival: ambulatory Limitations: no limitations - History of Present Illness Initial comments: Patient is a pleasant 85-year-old female history of hypertension, abdominal wall hernia presenting today for abdominal pain. Patient states that she saw Dr. Archer on and had a CT of her abdomen done due to recurrent diarrhea. She states since then she has not had a normal bowel movement. Today she was making dinner when she noticed sharp abdominal pain radiate from the right side of her abdomen towards her mid abdomen. She had an episode of nausea and 1 episode of nonbloody nonbilious emesis. Upon arriving to the ER her pain resolved spontaneously. She is currently pain-free. States she had a bowel movement earlier today. Has had frequent loose stools though no melena or hematochezia. Denies urinary frequency or urgency or hematuria. Prior abdominal surgeries include bowel resection due to intra-abdominal abscesses which were done in [facility]. Patient denies chest pain or shortness of breath, fevers, leg swelling, numbness or weakness. She is not on blood thinners. - Related Data Home Medications Medication Instructions Recorded Confirmed Glucosamine/Chondr Ibrahim A Sod [Osteo 1 tab PO BID 09/23/19 08/07/24 Bi-Flex Caplet] Pantoprazole [Protonix] 40 mg PO QAM 09/23/19 08/12/24 Cholecalciferol (Vitamin D3) 5,000 mcg PO QAM 08/31/21 08/07/24 [Vitamin D3 (125 MCG = 5,000 IU)] Rosuvastatin Calcium [Crestor] 40 mg PO HS 12/15/21 08/12/24 Ascorbic Acid [Vitamin C] 1,000 mg PO QAM 08/16/23 08/07/24 Calcium Carbonate/Vitamin D3 1 tab PO BID 08/16/23 08/07/24 [Calcium 600-D3 20 mcg (800 Unit)] Cyanocobalamin (Vitamin B-12) 1,000 mcg PO QAM 08/16/23 08/07/24 [Vitamin B-12] Multivitamins, Thera [Multivitamin 1 tab PO QAM 08/16/23 08/07/24 (formulary)] Diclofenac Sodium [Voltaren] 75 mg PO QAM 02/21/24 08/07/24 Losartan [Cozaar] 50 mg PO QAM 02/21/24 08/12/24 hydroCHLOROthiazide 25 mg PO QAM 02/21/24 08/12/24 Previous Rx's Medication Instructions Recorded Aspirin [Adult Low Dose Aspirin EC] 81 mg PO BID #60 tab 08/14/24 HYDROcodone/APAP 5-325MG [[place] 1 tab PO Q4HR PRN #42 tab 08/14/24 5-325] Sennosides/Docusate Sodium 2 each PO DAILY PRN #30 tablet 08/14/24 [Senna-S 8.6-50 mg Tablet] Allergies Allergy/AdvReac Type Severity Reaction Status Date / Time montelukast [From Singulair] Allergy Rash/Hives Verified 05/25/25 23:04 pneumococcal vaccine Allergy arm Verified 05/25/25 23:04 swelled up & Rash Review of Systems ROS Statement: Those systems with pertinent positive or pertinent negative responses have been documented in the HPI. ROS Other: All systems not noted in ROS Statement are negative. Past Medical History Past Medical History: GERD/Reflux, Hearing Disorder / Deafness, Hyperlipidemia, Hypertension, Osteoarthritis (OA) Additional Past Medical History / Comment(s): Lower back pain. Hx COVID 07/2021. Bilateral hearing aid use. History of Any Multi-Drug Resistant Organisms: None Reported Past Surgical History: Joint Replacement, Orthopedic Surgery, Tubal Ligation Additional Past Surgical History / Comment(s): ORIF left ankle, left ankle replacement, polyp removed from vocal cords, pain clinic procedure, right shoulder rotator cuff repair., total knee 08/12/24 Past Anesthesia/Blood Transfusion Reactions: No Reported Reaction Past Psychological History: No Psychological Hx Reported Smoking Status: Never smoker - Past Family History Father Family Medical History: Cancer Mother Additional Family Medical History / Comment(s): Aneurysm. General Exam - General Exam Comments Initial Comments: PE: CONSTITUTIONAL: No apparent distress, well appearing SKIN: Warm, dry, no jaundice, hives or petechiae EYES: Pupils are equally round, extraocular movements intact without nystagmus, clear conjunctiva, non-icteric sclera HENT: Normocephalic, atraumatic, moist mucus membranes, oropharynx clear without exudates NECK: , Full range of motion, normal appearance PULMONARY: Clear to auscultation without wheezes, rhonchi, or rales, normal excursion, no accessory muscle use and no stridor CARDIOVASCULAR: Regular rate, rhythm, normal S1 and S2. No appreciated murmurs, rubs or gallops. Strong radial pulses with intact distal perfusion. No lower extremity edema GASTROINTESTINAL: Soft, active bowel sounds throughout, non-tender, non-di stended, no palpable masses, no rebound or guarding. No hepatosplenomegaly MUSCULOSKELETAL: Extremities have no gross deformity, no edema, redness, or swelling. No calf swelling NEUROLOGIC:_a/o x 3, GCS 15, normal mentation and speech. Moves all extremities x 4 without motor or sensory deficit PSYCHIATRIC:_normal mood and affect, thought process is clear and linear Limitations: no limitations Course Vital Signs 05/25/25 23:00 Temperature 98.5 F Pulse Rate 75 Respiratory 16 Rate Blood Pressure 126/68 O2 Sat by Pulse 95 Oximetry Medical Decision Making - Medical Decision Making Was pt. sent in by a medical professional or institution (, PA, SIGN HANGER SUPERVISOR, urgent care, hospital, or care home...) When possible be specific @ -[No] Did you speak to anyone other than the patient for history (EMS, parent, family, police, friend...)? What history was obtained from this source @ -[No] Did you review nursing and triage notes (agree or disagree)? Why? @ -[I reviewed nursing and triage notes] Were old charts reviewed (outside hosp., previous admission, EMS record, old EKG, old radiological studies, urgent care reports/EKG's, care home records)? Report findings @ -[Medical records reviewed]CT oh she was reviewed CT abdomen pelvis done on 05/22/2025, was significant for right lower quadrant large ventral wall broad- based complex hernia containing nonobstructing small bowel and small mesenteric vessels, additional small fat filled annular hernia, postsurgical changes no evidence of diverticulitis Differential Diagnosis (chest pain, altered mental status, abdominal pain women, abdominal pain men, vaginal bleeding, weakness, fever, dyspnea, syncope, headache, dizziness, GI bleed, back pain, seizure, CVA, palpatations, mental health, musculoskeletal)? @Differential Abdominal Pain Women: Appendicitis, Cholecystitis, diverticulosis, ischemic bowel, pancreatitis, hepatitis, UTI, gastroenteritis, AAA, incarcerated hernia, bowel obstruction, c onstipation, inflammatory bowel, peptic ulcer disease, splenic infarction, perforated viscus, kidney stone, ovarian torsion, ectopic , PID, placenta abruption, this is not meant to be an all-inclusive list EKG interpreted by me (3pts min.). @ -[As above] X-rays interpreted by me (1pt min.). @ -[None done] CT interpreted by me (1pt min.). @ -[None done] U/S interpreted by me (1pt. min.). @ -[None done] What testing was considered but not performed or refused? (CT, X-rays, U/S, labs)? Why? @CT abdomen pelvis was considered however pain had resolved, additionally she had a benign abdominal exam, no palpable masses or irreducible hernias, no overlying skin changes active bowel sounds throughout What meds were considered but not given or refused? Why? @ -[None] Did you discuss the management of the patient with other professionals (professionals i.e. , PA, SIGN HANGER SUPERVISOR, lab, RT, psych nurse, social work job titles, motion and time study teacher, teacher, campus security officer, community case manager)? Give summary @ -[No] Was smoking cessation discussed for >3mins.? @ -[No] Was critical care preformed (if so, how long)? @ -[No] Were there social determinants of health that impacted care today? How? (Homelessness, low income, unemployed, alcoholism, drug addiction, transportation, low edu. Level, literacy, decrease access to med. care, alf, rehab)? @ -[No] Was there de-escalation of care discussed even if they declined (Discuss DNR or withdrawal of care, Hospice)? @ -[No] What co-morbidities impacted this encounter? (DM, HTN, Smoking, COPD, CAD, Cancer, CVA, ARF, Chemo, Hep., AIDS, mental health diagnosis, sleep apnea, mo rbid obesity)? @ -[None] Was patient admitted / discharged? Hospital course, mention meds given and route, prescriptions, significant lab abnormalities, going to OR and other pertinent info. @ -[hospital course] this is a pleasant 85-year-old female presenting today for abdominal pain. History of ventral wall hernia.Vital signs are stable on arrival. On my assessment patient states her pain has resolved. Abdominal exam is benign. Discussed with patient plan for blood work. If pain returns or significant lab abnormalities will consider CT abdomen pelvis. Patient agreeable with plan of care. Undiagnosed new problem with uncertain prognosis? @ -[No] Drug Therapy requiring intensive monitoring for toxicity (Heparin, Nitro, Insulin, Cardizem)? @ -[No] Were any procedures done? @ -[No] Diagnosis/symptom? @ -[default] Acute, or Chronic, or Acute on Chronic? @ -[default] Uncomplicated (without systemic symptoms) or Complicated (systemic symptoms)? @ -[default] Side effects of treatment? @ -[No] Exacerbation, Progression, or Severe Exacerbation? @ -[No] Poses a threat to life or bodily function? How? (Chest pain, [place], [place], pneumonia, PE, COPD, DKA, ARF, appy, cholecystitis, CVA, Diverticulitis, Homicidal, Suicidal, threat to staff... and all critical care pts) @ -[No] - Lab Data Result diagrams: 05/26/25 00:00 05/26/25 00:00 Lab Results 05/26/25 05/26/25 05/26/25 Range/Units 00:00 00:00 00:12 WBC 18.17 H (4.50-10.00) 10*3/uL RBC 4.27 (4.10-5.20) 10*6/uL Hgb 13.9 (12.0-15.0) g/dL Hct 41.0 (37.2-46.3) % MCV 96.0 (80.0-97.0) fL MCH 32.6 H (27.0-32.0) pg MCHC 33.9 (32.0-37.0) g/dL Plt Count 282 (140-440) 10*3/uL MPV 11.6 (9.5-12.2) fL Immature Gran % (Auto) 0.3 % Neutrophils % 88.0 % Lymphocytes % 7.3 % Monocytes % 3.5 % Eosinophils % 0.4 % Basophils % 0.5 % Immature Gran # 0.05 H (0.00-0.04) 10*3/uL Neutrophils # 15.98 H (1.80-7.70) 10*3/uL Lymphocytes # 1.33 (0.90-5.00) 10*3/uL Monocytes # 0.64 (0.20-1.00) 10*3/uL Eosinophils # 0.08 (0.04-0.35) 10*3/uL Basophils # 0.09 (0.00-0.10) 10*3/uL Sodium 141 (137-145) mmol/L Potassium 4.6 (3.5-5.1) mmol/L Chloride 104 (98-107) mmol/L Carbon Dioxide 23 (22-30) mmol/L Anion Gap 14 mmol/L BUN 45 H (7-17) mg/dL Creatinine 1.57 H (0.52-1.04) mg/dL Est GFR (CKD-EPI)AfAm 34 (>60 ml/min/1.73 sqM) Est GFR (CKD-EPI)NonAf 30 (>60 ml/min/1.73 sqM) Glucose 146 H (74-99) mg/dL Plasma Lactic Acid Roderick 3.0 H* (0.7-2.0) mmol/L Calcium 10.3 H (8.4-10.2) mg/dL Total Bilirubin 0.4 (0.2-1.3) mg/dL AST 20 (14-36) U/L ALT 16 (4-34) U/L Alkaline Phosphatase 47 (38-126) U/L Total Protein 7.9 (6.3-8.2) g/dL Albumin 4.8 (3.5-5.0) g/dL Amylase 62 (30-110) U/L Lipase 197 (23-300) U/L Urine Color Urine Appearance (Clear) Urine pH (5.0-8.0) Ur Specific Hubert (1.001-1.035) Urine Protein (Negative) Urine Glucose (UA) (Negative) Urine Ketones (Negative) Urine Blood (Negative) Urine Nitrite (Negative) Urine Bilirubin (Negative) Urine Urobilinogen (<2.0) mg/dL Ur Leukocyte Esterase (Negative) Urine WBC (0-5) /hpf Ur Squamous Epith Cells (0-4) /hpf Urine Bacteria (None) /hpf Hyaline Casts (0-2) /lpf 05/26/25 Range/Units 01:03 WBC (4.50-10.00) 10*3/uL RBC (4.10-5.20) 10*6/uL Hgb (12.0-15.0) g/dL Hct (37.2-46.3) % MCV (80.0-97.0) fL MCH (27.0-32.0) pg MCHC (32.0-37.0) g/dL Plt Count (140-440) 10*3/uL MPV (9.5-12.2) fL Immature Gran % (Auto) % Neutrophils % % Lymphocytes % % Monocytes % % Eosinophils % % Basophils % % Immature Gran # (0.00-0.04) 10*3/uL Neutrophils # (1.80-7.70) 10*3/uL Lymphocytes # (0.90-5.00) 10*3/uL Monocytes # (0.20-1.00) 10*3/uL Eosinophils # (0.04-0.35) 10*3/uL Basophils # (0.00-0.10) 10*3/uL Sodium (137-145) mmol/L Potassium (3.5-5.1) mmol/L Chloride (98-107) mmol/L Carbon Dioxide (22-30) mmol/L Anion Gap mmol/L BUN (7-17) mg/dL Creatinine (0.52-1.04) mg/dL Est GFR (CKD-EPI)AfAm (>60 ml/min/1.73 sqM) Est GFR (CKD-EPI)NonAf (>60 ml/min/1.73 sqM) Glucose (74-99) mg/dL Plasma Lactic Acid Roderick (0.7-2.0) mmol/L Calcium (8.4-10.2) mg/dL Total Bilirubin (0.2-1.3) mg/dL AST (14-36) U/L ALT (4-34) U/L Alkaline Phosphatase (38-126) U/L Total Protein (6.3-8.2) g/dL Albumin (3.5-5.0) g/dL Amylase (30-110) U/L Lipase (23-300) U/L Urine Color Colorless Urine Appearance Clear (Clear) Urine pH 6.0 (5.0-8.0) Ur Specific Hubert 1.019 (1.001-1.035) Urine Protein Negative (Negative) Urine Glucose (UA) Negative (Negative) Urine Ketones Negative (Negative) Urine Blood Negative (Negative) Urine Nitrite Negative (Negative) Urine Bilirubin Negative (Negative) Urine Urobilinogen <2.0 (<2.0) mg/dL Ur Leukocyte Esterase Large H (Negative) Urine WBC 19 H (0-5) /hpf Ur Squamous Epith Cells <1 (0-4) /hpf Urine Bacteria Rare H (None) /hpf Hyaline Casts 3 H (0-2) /lpf Disposition Clinical Impression: Abdominal pain Disposition: HOME SELF-CARE Condition: Stable Instructions (If sedation given, give patient instructions): Ventral Hernia (ED), Clear Liquid Diet (ED) Additional Instructions: Every disease is a spectrum and a small chance still exists that a serious condition could develop, for this reason, please monitor yourself closely for new, changing or worsening symptoms, return of pain, vomiting, no bowel movement for greater then 3 days, redness or swelling of your abdomen, fever, inability to tolerate/keep down fluids or your medications, inability to follow up with outpatient providers as instructed and should you experience these symptoms or should you have any further concerns for your wellbeing please return to the ED or call 911 immediately. Please follow-up with Dr. Mejia tomorrow morning regarding recent CT results and today's visit. Please maintain a clear liquid diet for the next 24 hours. PLEASE call your primary care physician as soon as possible to arrange / discuss plan for followup appointment. Appointment in the next 1-3 days is strongly encouraged if possible. PLEASE let us know here before you leave if there is anything further we can do to be of any assistance. Take care and feel Better! Is patient prescribed a controlled substance at d/c from ED?: No Referrals: Jovanni Taveras DO [Primary Care Provider] - 1-2 days
[2025-05-26 00:32] LABS: Basophils # (A) 0.09 10*3/uL (0.00-0.10); Basophils % (A) 0.5 %; Eosinophils # (A) 0.08 10*3/uL (0.04-0.35); Eosinophils % (A) 0.4 %; HCT 41.0 % (37.2-46.3); HGB 13.9 g/dL (12.0-15.0); Lymphocytes # (A) 1.33 10*3/uL (0.90-5.00); Lymphocytes % (A) 7.3 %; MCH 32.6 pg (27.0-32.0); MCHC 33.9 g/dL (32.0-37.0); MCV 96.0 fL (80.0-97.0); Monocytes # (A) 0.64 10*3/uL (0.20-1.00); Monocytes % (A) 3.5 %; Neutrophils # (A) 15.98 10*3/uL (1.80-7.70); Neutrophils % (A) 88.0 %; Platelet Count 282 10*3/uL (140-440); RBC 4.27 10*6/uL (4.10-5.20); RDW 12.2 % (11.5-14.5); WBC 18.17 10*3/uL (4.50-10.00)
[2025-05-26 00:34] LABS: ALT 16 U/L (4-34); AST 20 U/L (14-36); African American GFR (CKD) 34 (>60 ml/min/1.73 sqM); Albumin 4.8 g/dL (3.5-5.0); Alkaline Phosphatase 47 U/L (38-126); Amylase 62 U/L (30-110); Anion Gap 14 mmol/L; Blood Urea Nitrogen 45 mg/dL (7-17); Calcium 10.3 mg/dL (8.4-10.2); Carbon Dioxide 23 mmol/L (22-30); Chloride 104 mmol/L (98-107); Glucose 146 mg/dL (74-99); Lipase 197 U/L (23-300); Non-African American GFR(CKD) 30 (>60 ml/min/1.73 sqM); Potassium 4.6 mmol/L (3.5-5.1); Sodium 141 mmol/L (137-145); Total Protein 7.9 g/dL (6.3-8.2)
[2025-05-26] MEDS: SODIUM CHLORIDE 0.9% 500 ML 500 ML IV ONE (01:02)
[2025-05-26 01:30] LABS: Bacteria,Urine Rare /hpf; Bilirubin,Urine Negative (Negative); Blood,Urine Negative (Negative); Color,Urine Colorless; Glucose,Urine (UA) Negative (Negative); Hyaline Casts,Urine 3 /lpf (0-2); Ketones,Urine Negative (Negative); Leukocyte Esterase,Urine Large (Negative); Nitrite,Urine Negative (Negative); PH, Urine 6.0 (5.0-8.0); Protein,Urine Negative (Negative); Specific Gravity,Urine 1.019 (1.001-1.035); Squamous Epithelial Cell,Urine <1 /hpf (0-4); Urobilinogen,Urine <2.0 mg/dL (<2.0); WBC,Urine 19 /hpf (0-5)
[2025-05-26 02:00] VITALS: BP 137/57; PULSE 67
== END 2025-05-26 02:06 | disposition home or self-care (01) ==
LOC: EC 22:32
DX: R10.9 Unspecified abdominal pain (principal); Z88.7 Allergy status to serum and vaccine; Z88.8 Allergy status to other drugs, medicaments and biological substances
CPT/HCPCS: 36415; 80053; 81001; 82150; 83605; 83690; 85025; 87086; 99284